=== PATIENT | male | born 1955 | race Caucasian/White ===

== ENCOUNTER 2023-12-11 07:44 | Outpatient (CLI) | payer MEDICARE, SELFPAY ==
--- NOTE | 2023-12-11 07:30 | RT.EKG_ITS ---
APPROVED REPORT Exam: Resting ECG Reason for Exam: afib Patient Location: O HR:133 bpm ECG Measurements Heart Rate 133 AXIS MD 88 P 36 QRSd 106 QRS 55 QT 336 T 164 QTc 500 Conclusion Sinus tachycardia...rate> 99 Repol abnrm suggests ischemia, lateral leads...ST dep, T neg, I aVL V5 V6 ST elevation, consider inferior injury...ST >0.08mV, II III aVF Baseline wander in lead(s) III,aVL
== END 2023-12-11 07:45 | disposition home or self-care (01) ==
LOC: DI.CARD 07:45
PROVIDERS: PCP Family Medicine; Visit Provider Student in an Organized Health Care Education/Training Program
DX: I25.10 Atherosclerotic heart disease of native coronary artery without angina pectoris (principal); I48.0 Paroxysmal atrial fibrillation
CPT/HCPCS: 93010

== ENCOUNTER → 2023-12-11 13:59 | Outpatient (BNVA) | payer MEDICARE, SELFPAY | PROVIDERS: PCP Family Medicine; Referring Provider Family Medicine; Visit Provider Student in an Organized Health Care Education/Training Program | DX: Z95.810 Presence of automatic (implantable) cardiac defibrillator (principal); I25.10 Atherosclerotic heart disease of native coronary artery without angina pectoris; I48.0 Paroxysmal atrial fibrillation | CPT/HCPCS: 93005; 93282 ==

== ENCOUNTER 2024-12-04 12:55 | Inpatient (IN) | payer MEDICARE, MEDICAID, SELFPAY ==
[2024-12-04] VITALS (32 sets, daily range): BP systolic 136–187; BP diastolic 69–141; PULSE 93–108; RESP 5–37; TEMP 37–37.2; O2SAT 67–99
--- NOTE | 2024-12-04 12:45 | RT.EKG_ITS ---
APPROVED REPORT Exam: Resting ECG Reason for Exam: [facility] Patient Location: E HR:98 bpm ECG Measurements Heart Rate 98 AXIS LA 169 P [id number] QRSd 110 QRS 67 QT 339 T 23 QTc 433 Conclusion Atrial-paced complexes...other complexes also detected Anterior infarct, old...Q >40mS, abnormal ST-T, V2-V5
--- NOTE | 2024-12-04 13:30 | DI.CT_ITS ---
Exam(s) CT HEAD WO EXAM: CT HEAD WO CLINICAL HISTORY: altered mentation. TECHNIQUE: Imaging Protocol: Axial computed tomography images with coronal and sagittal reformatted images were created and reviewed COMPARISON: CT CT CTA ABD/PELV W/AND/OR WO CON from 12/02/2024 FINDINGS: There are no skull fractures. There is no fluid in the visualized paranasal sinuses. There is no evidence of intracranial hemorrhage, mass effect, or shift of midline structures. There are no extra-axial fluid collections. The ventricles are not enlarged or shifted and there is no blood within the ventricular system nor within the basal cisterns. IMPRESSION: No acute intracranial findings on this noninfused CT scan of the brain. Called by myself to ER 12/04/2024 at 3:44 p.m. RADIATION DOSE DELIVERED: 898.3mGy.cm Total DLP DATA REPOSITORY: All CT scans at this facility are submitted to the National Radiology Data Registry (NRDR) Dose Index Registry (DIR) with the [employer] ([employer]). RADIATION OPTIMIZATION: All CT scans at this facility use at least one of these dose optimization techniques: automated exposure control; mA and/or kV adjustment per patient size (includes targeted exams where dose is matched to clinical indication); or iterative reconstruction.
[2024-12-04] MEDS: Albuterol/Ipratropium 3 ML UPD VIAL UPD ×2 (13:31→15:46)
[2024-12-04 13:32] LABS: BE (Venous) 6 mmol/L (-2-3); HCO3 (Venous) 33 mmol/L (23-28); O2 Sat (Venous) 47 %; TCO2 (Venous) 31 mmol/L (24-29); pH (Venous) 7.25 (7.31-7.41); pO2 (Venous) 30 mmHg
[2024-12-04 13:33] LABS: Abs Immature Grans 0.06 10^3/uL (0.0-0.06); Absolute Basophil Count 0.03 10^3/uL (0.0-0.2); Absolute Eosinophil Count 0.04 10^3/uL (0.0-0.7); Absolute Lymphocyte Count 0.75 10^3/uL (1.2-3.4); Absolute Monocyte Count 0.51 10^3/uL (0.1-0.8); Absolute Neutrophil Count 6.41 10^3/uL (1.2-6.7); Basophils % 0.4 %; Eosinophils % 0.5 %; HCT 45.3 % (40.0-50.0); HGB 13.4 g/dL (13.5-17.5); Immature Grans % 0.8 %; Lymphocytes % 9.6 %; MCH 28.7 pg (27.0-33.0); MCHC 29.6 % (32.0-36.0); MCV 97 fL (80-95); MPV 8.6 fL (8.0-11.0); Monocytes % 6.5 %; Neutrophils % 82.2 %; Platelet Count 196 10^3/uL (130-400); RBC 4.67 10^6/uL (4.36-5.78); RDW 15.9 % (11.8-14.1); RDW-SD 56.6 fL
[2024-12-04 13:38] LABS: pCO2 (Venous) 75 mmHg (41-51)
--- NOTE | 2024-12-04 13:46 | W.ED.GENAD ---
Discharge Plan Disposition Patient Disposition: Admit to [facility] Condition: Critical Discharge Details Clinical Impression: Acute respiratory failure with hypoxia and hypercarbia, Elevated troponin, Altered mental status Primary Care Provider: Jc Morales ED Provider: Sam Perez [place] Meds and New Rx's Prescriptions: No Action [id number]-[id number] 500-416.6-20 mg tablet 1 tab PO DAILY Patient Comments: 04/16/23 per pcp take 2 daily RH sildenafil 100 mg tablet 100 mg PO DAILY PRN Rx Instructions: administer 30 minutes to 4 hours before activity metformin 500 mg tablet 500 mg PO BID tamsulosin 0.4 mg capsule 0.8 mg PO QHS Ozempic 2 mg/dose (8 mg/3 mL) pen injector 2 mg subcut QWEEK amiodarone 200 mg tablet 200 mg PO DAILY apixaban 5 mg tablet 5 mg PO BID clopidogrel 75 mg tablet 75 mg PO DAILY empagliflozin 10 mg tablet 10 mg PO DAILY furosemide 40 mg tablet 40 mg PO DAILY pantoprazole 40 mg tablet,delayed release (DR/EC) 40 mg PO DAILY rosuvastatin 40 mg tablet 40 mg PO DAILY spironolactone 25 mg tablet 25 mg PO DAILY albuterol sulfate 90 mcg/actuation aerosol powdr breath activated 2 inh inhalation Q6H PRN sacubitril-valsartan [Entresto] 24-26 mg tablet 1 tab PO BID fluticasone propion-salmeterol 250-50 mcg/dose blister with device 1 inh inhalation BID gabapentin 100 mg capsule 100 mg PO DAILY Jardiance 10 mg tablet 10 mg PO DAILY loratadine 10 mg tablet 10 mg PO DAILY magnesium chloride 64 mg tablet extended release 64 mg PO DAILY metformin 500 mg tablet 500 mg PO DAILY nitroglycerin 0.4 mg tablet, sublingual 0.4 mg sublingual Q5M PRN Rx Instructions: do not exceed 3 doses per episode omeprazole 20 mg capsule,delayed release(DR/EC) 20 mg PO DAILY Ozempic 2 mg/dose (8 mg/3 mL) pen injector 2 mg subcut QWEEK Stiolto Respimat 2.5-2.5 mcg/actuation mist 2 puff inhalation DAILY trazodone 50 mg tablet 50 mg PO DAILY metoprolol succinate [Toprol XL] 100 mg tablet extended release 24 hr 200 mg PO DAILY HPI General Date/Time Provider Initiated Documentation: 12/04/24 13:11. Limitations to Documentation: no limitations. Information obtained by: patient and family. HPI Narrative: 69-year-old male with multimedical problems including history of COPD, diabetes, hypertension, coronary artery disease status post stents, CHF, A-fib, AAA, here at the prompting of his for altered mental status. Patient has had increased fatigue, intermittent hallucinations, and slurred speech over the past 1 week. She notes today he slept well into the morning which is completely atypical and was also experiencing hallucinations upon waking. Patient notes has not been drinking as much recently and has had a cough. He denies focal weakness but has generalized weakness. Related Data Home Medications ?Medication ?Instructions ?Recorded ?Confirmed glucosamine 500 wd-ojkmfogzj-skq 1 tab PO DAILY 04/16/23 12/04/24 no1 416.6 mg-C 20 kt-qqwj-kbpj tablet metformin 500 mg tablet 500 mg PO BID 04/16/23 12/04/24 semaglutide 2 mg/dose (8 mg/3 mL) 2 mg subcut QWEEK 04/16/23 12/04/24 subcutaneous pen injector (Ozempic) sildenafil 100 mg tablet 100 mg PO DAILY PRN 04/16/23 12/04/24 tamsulosin 0.4 mg capsule 0.8 mg PO QHS 04/16/23 12/04/24 amiodarone 200 mg tablet 200 mg PO DAILY 04/22/23 12/04/24 apixaban 5 mg tablet 5 mg PO BID 04/22/23 12/04/24 clopidogrel 75 mg tablet 75 mg PO DAILY 04/22/23 12/04/24 empagliflozin 10 mg tablet 10 mg PO DAILY 04/22/23 12/04/24 furosemide 40 mg tablet 40 mg PO DAILY 04/22/23 12/04/24 pantoprazole 40 mg tablet,delayed 40 mg PO DAILY 04/22/23 12/04/24 release rosuvastatin 40 mg tablet 40 mg PO DAILY 04/22/23 12/04/24 albuterol sulfate 90 mcg/actuation 2 inh inhalation Q6H PRN 07/06/24 12/04/24 breath activated powder inhaler empagliflozin 10 mg tablet 10 mg PO DAILY 07/06/24 12/04/24 (Jardiance) fluticasone 250 mcg-salmeterol 50 1 inh inhalation BID 07/06/24 12/04/24 mcg/dose blistr powdr for inhalation gabapentin 100 mg capsule 100 mg PO DAILY 07/06/24 12/04/24 loratadine 10 mg tablet 10 mg PO DAILY 07/06/24 12/04/24 magnesium chloride 64 mg 64 mg PO DAILY 07/06/24 12/04/24 tablet,extended release Held on 12/04/24. Instructions: not on med list metformin 500 mg tablet 500 mg PO DAILY 07/06/24 12/04/24 Held on 12/04/24. Instructions: Duplicate nitroglycerin 0.4 mg sublingual 0.4 mg sublingual Q5M PRN 07/06/24 12/04/24 tablet omeprazole 20 mg capsule,delayed 20 mg PO DAILY 07/06/24 12/04/24 release sacubitril 24 mg-valsartan 26 mg 1 tab PO BID 07/06/24 12/04/24 tablet (Entresto) semaglutide 2 mg/dose (8 mg/3 mL) 2 mg subcut QWEEK 07/06/24 12/04/24 subcutaneous pen injector (Ozempic) Held on 12/04/24. Instructions: Duplicate spironolactone 25 mg tablet 25 mg PO DAILY 07/06/24 12/04/24 tiotropium 2.5 mcg-olodaterol 2.5 2 puff inhalation DAILY 07/06/24 12/04/24 mcg/actuation mist for inhalation (Stiolto Respimat) metoprolol succinate 100 mg 200 mg PO DAILY 12/04/24 12/04/24 tablet,extended release 24 hr (Toprol XL) trazodone 50 mg tablet 50 mg PO DAILY 12/04/24 12/04/24 Allergies Allergy/AdvReac Type Severity Reaction Status Date / Time Penicillins AdvReac Skin Rash Verified 12/04/24 13:19 General Stated Complaint: GenMedical ROD: 3 Review of Systems All systems reviewed & are unremarkable except as noted in HPI and below Constitutional Constitutional: Reports lethargy and Reports weakness Cardiovascular Cardiovascular: Denies chest pain Neurologic Neurologic: Reports weakness Exam Const General: cooperative and no acute distress Nutritional Appearance: obese Orientation: alert and awake [facility] Head: normocephalic and atraumatic Mouth: moist mucous membranes Eyes Conjunctivae: normal conjunctivae Sclera: normal sclerae Neck Neck: trachea midline and supple Resp Auscultation: diminished lung sounds bilaterally, no rales, no rhonchi and wheezes expiratory wheezes (trace) Cardio Rate: regular rate and not tachycardic Rhythm: regular rhythm GI Palpation: soft, not firm, no guarding, no masses, not rigid and nontender Skin General skin exam: no rashes or lesions noted Neuro General: patient alert, patient awake, patient oriented x3 and tone normal Cognition: normal cognition Speech: abnormal speech slurred Motor: strength 5/5 throughout Sensory Exam: no sensory deficits noted Extrem General: no edema Psych Appearance: grossly normal Mental Status: mental status grossly normal Speech and Movement: speech and movement normal Course Vital Signs Vital signs: Vital Signs Pulse 97 H 12/04/24 12:59 Respiratory Rate 24 12/04/24 12:59 Blood Pressure 152/89 H 12/04/24 12:59 Pulse Oximetry 80 L 12/04/24 12:59 Pulse 97 H 12/04/24 13:33 Respiratory Rate 25 H 12/04/24 13:33 Blood Pressure 152/89 H 12/04/24 12:59 Blood Pressure Position Sitting 12/04/24 12:59 Pulse Oximetry 91 L 12/04/24 13:34 Oxygen Delivery Method Nasal Cannula 12/04/24 13:34 Oxygen Flow Rate 1 12/04/24 13:34 Pain Level 0 12/04/24 12:59 Lab/Test Results Lab/Test Results: Laboratory Tests Range/Units 12/04/24 13:18 WBC (4.4-10.8) 10^3/uL 7.80 RBC (4.36-5.78) 10^6/uL 4.67 Hgb (13.5-17.5) g/dL 13.4 L Hct (40.0-50.0) % 45.3 MCV (80-95) fL 97 H MCH (27.0-33.0) pg 28.7 MCHC (32.0-36.0) % 29.6 L RDW (11.8-14.1) % 15.9 H Plt Count (130-400) 10^3/uL 196 MPV (8.0-11.0) fL 8.6 Immature Gran % % 0.8 Neutrophils % % 82.2 Lymphocytes % % 9.6 Monocytes % % 6.5 Eosinophils % % 0.5 Basophils % % 0.4 Nucleated RBC % (0.0-0.3) % 0.0 Absolute Neutrophils (1.2-6.7) 10^3/uL 6.41 Absolute Lymphocytes (1.2-3.4) 10^3/uL 0.75 L Absolute Monocytes (0.1-0.8) 10^3/uL 0.51 Absolute Eosinophils (0.0-0.7) 10^3/uL 0.04 Absolute Basophils (0.0-0.2) 10^3/uL 0.03 VBG pH (7.31-7.41) 7.25 L VBG pCO2 (41-51) mmHg 75 H* VBG pO2 mmHg 30 VBG HCO3 (23-28) mmol/L 33 H VBG Total CO2 (24-29) mmol/L 31 H VBG O2 Saturation % 47 VBG Base Excess (-2-3) mmol/L 6 H Medical Decision Making 1350 --69-year-old male with multiple medical problems including history of COPD, CHF, diabetes, hypertension,'s coronary artery disease status post -, here with altered mental status, slurred speech, generalized weakness and fatigue over the past 1 week. Patient found to be severely hypoxic with a pulse ox of 60% on room air. Supplemental oxygen applied and now saturating low 90s. He has diminished breath sounds bilaterally with some wheeze. Suspect hypercarbic hypoxemic respiratory failure leading to delirium. Concern for acute COPD exacerbation. Consider pneumonia. Plan to initiate treatment with DuoNebs and Solu-Medrol. Consider less likely central neurologic process I will obtain CT of the head. VBG reviewed and patient is acidotic with pH of 7.25 with a pCO2 of 75. Respiratory therapy has been consulted with plan to initiate BiPAP. Patient is high risk for alcohol withdrawal and should be monitored closely. I am concerned about Warnicke's encephalopathy and will give thiamine 100 mg IV. 1440 --additional labs reviewed: Troponin elevated at 237. BNP elevated at 2600. Chest x-ray was reviewed and interpreted by radiology: No acute pulmonary findings. 1455 --I obtained and reviewed interpretation of outside hospital CT of the abdomen pelvis 12/02/2024 as interpreted by radiologist Dr. Garcia:1. Mild ectasia of the infrarenal aorta measuring 2.7 cm in maximal diameter. 2. Enlarged prostate. 3. CT angiography of the abdomen and pelvis is otherwise within normal limits. Patient reassessed and tolerating BiPAP well. Plan to repeat VBG. Plan to admit. 1523 --repeat VBG continues to show hypercarbia. Plan to continue BiPAP which patient is tolerating well. CT of the head pending. I spoke with Dr. Akhtar, discussed ED presentation course, he will admit the patient. 1544 --CT head interpreted by radiology: No acute intracranial findings on this noninfused CT scan of the brain. Lab Data Lab results reviewed: Yes I reviewed the patient's lab results. Labs: Laboratory Tests Range/Units 12/04/24 13:18 WBC (4.4-10.8) 10^3/uL 7.80 RBC (4.36-5.78) 10^6/uL 4.67 Hgb (13.5-17.5) g/dL 13.4 L Hct (40.0-50.0) % 45.3 MCV (80-95) fL 97 H MCH (27.0-33.0) pg 28.7 MCHC (32.0-36.0) % 29.6 L RDW (11.8-14.1) % 15.9 H Plt Count (130-400) 10^3/uL 196 MPV (8.0-11.0) fL 8.6 Immature Gran % % 0.8 Neutrophils % % 82.2 Lymphocytes % % 9.6 Monocytes % % 6.5 Eosinophils % % 0.5 Basophils % % 0.4 Nucleated RBC % (0.0-0.3) % 0.0 Absolute Neutrophils (1.2-6.7) 10^3/uL 6.41 Absolute Lymphocytes (1.2-3.4) 10^3/uL 0.75 L Absolute Monocytes (0.1-0.8) 10^3/uL 0.51 Absolute Eosinophils (0.0-0.7) 10^3/uL 0.04 Absolute Basophils (0.0-0.2) 10^3/uL 0.03 VBG pH (7.31-7.41) 7.25 L VBG pCO2 (41-51) mmHg 75 H* VBG pO2 mmHg 30 VBG HCO3 (23-28) mmol/L 33 H VBG Total CO2 (24-29) mmol/L 31 H VBG O2 Saturation % 47 VBG Base Excess (-2-3) mmol/L 6 H Sodium (136-145) mmol/L 141 Potassium (3.5-5.1) mmol/L 4.6 Chloride (98-107) mmol/L 101 Carbon Dioxide (21.0-32.0) mmol/L 36.4 H Anion Gap (3-11) mmol/L 3.6 BUN (7-18) mg/dL 19 H Creatinine (0.70-1.30) mg/dL 1.0 Est GFR (CKD-EPI 2020) (mL/min/1.73m2) 80.97 Glucose (74-106) mg/dL 139 H Calcium (8.5-10.1) mg/dL 8.9 Magnesium (1.8-2.4) mg/dL 2.1 Total Bilirubin (0.2-1.0) mg/dL 0.3 AST (15-37) U/L 40 H ALT (16-63) U/L 48 Alkaline Phosphatase (46-116) U/L 111 Troponin I (<or=76) ng/L 237 H* NT-Pro-B Natriuret Pep (<300) pg/mL 2614 H Total Protein (6.4-8.2) g/dL 7.3 Albumin (3.4-5.0) g/dL 3.1 L Critical Care Time Critical Care Time Critical Care Time: Yes Total Critical Care Time: 45 Attestation: Due to a high probability of clinically significant, life threatening deterioration, the patient required my highest level of preparedness to intervene emergently and I personally spent this critical care time directly and personally managing the patient. This critical care time included obtaining a history; examining the patient; pulse oximetry; ordering and review of studies; arranging urgent treatment with development of a management plan; evaluation of patient's response to treatment; frequent reassessment; and, discussions with other providers. This critical care time was performed to assess and manage the high probability of imminent, life-threatening deterioration that could result in multi-organ failure. It was exclusive of separately billable procedures and treating other patients and teaching time. Please see MDM section and the rest of the note for further information on patient assessment and treatment. PFSH All Active Problems (Updated 12/04/24 @ 15:27 by Sam Perez MD) Altered mental status (Acute) Elevated troponin (Acute) Acute respiratory failure with hypoxia and hypercarbia (Acute) Elevated troponin (Acute) Acute exacerbation of chronic obstructive pulmonary disease (COPD) (Acute) Acute respiratory failure with hypoxia and hypercapnia (Acute) Restless leg syndrome (Acute) Presence of cardiac defibrillator (Acute) Overweight (Acute) NSTEMI (non-ST elevated myocardial infarction) (Acute) Insomnia (Acute) Hypertensive disorder (Chronic) DM type 2 (diabetes mellitus, type 2) (Acute) COPD with chronic bronchitis (Acute) Chronic GERD (Acute) CHF with cardiomyopathy (Acute) Bilateral cataracts (Acute) Atrial flutter (Acute) Atherosclerotic coronary vascular disease (Acute) Paroxysmal A-fib (Acute) ICD (implantable cardioverter-defibrillator) in place (Acute) Medtronic cobalt placed at [facility] 04/15/23 (HFpEF) heart failure with preserved ejection fraction (Acute) 04/15 EF 17% per [facility] RH ASCVD (arteriosclerotic cardiovascular disease) (Acute) Known LAD stenosis s/p PCIx2 to TRAP SETTER RCA per [facility], PCI to LAD RH Acid reflux (Chronic) COPD (chronic obstructive pulmonary disease) (Chronic) Hyperlipidemia (Acute) Diabetes mellitus (Chronic) HTN (hypertension) with goal to be determined (Acute) Medical History BPH (benign prostatic hyperplasia) Social History Smoking/Tobacco Use Status: Former Tobacco Use Smoking risk assessment performed?: Yes
--- NOTE | 2024-12-04 13:55 | DI.RAD_ITS ---
Exam(s) XR PORTABLE CHEST AP EXAM: XR PORTABLE CHEST AP CLINICAL HISTORY: hypoxia cough. TECHNIQUE: 2D digital imaging was performed. COMPARISON: CT CT CTA ABD/PELV W/AND/OR WO CON from 12/02/2024 FINDINGS: Single AP portable view. There is a bipolar left subclavian pacemaker wires. Heart size is upper normal. The mediastinum is not widened. There are mild increased markings in the left lower lobe retrocardiac region. There is also mild pulmonary venous hypertension pattern but no jared airspace pulmonary edema. No obvious pleural effusions. IMPRESSION: As above. Recommend nonportable PA and lateral views when clinically possible, or alternatively CT scan. DATA REPOSITORY: RADIATION DOSE DELIVERED:
[2024-12-04 13:58] LABS: ALT 48 U/L (16-63); AST 40 U/L (15-37); Albumin 3.1 g/dL (3.4-5.0); Alkaline Phosphatase 111 U/L (46-116); Anion Gap 3.6 mmol/L (3-11); BUN 19 mg/dL (7-18); Bilirubin, Total 0.3 mg/dL (0.2-1.0); CO2 36.4 mmol/L (21.0-32.0); Calcium 8.9 mg/dL (8.5-10.1); Chloride 101 mmol/L (98-107); Estimated GFR 80.97 (mL/min/1.73m2); Glucose 139 mg/dL (74-106); Magnesium 2.1 mg/dL (1.8-2.4); NT-proBNP 2614 pg/mL (<300); Potassium 4.6 mmol/L (3.5-5.1); Sodium 141 mmol/L (136-145); Total Protein 7.3 g/dL (6.4-8.2)
[2024-12-04 14:01] LABS: Troponin I 237 ng/L (<or=76)
[2024-12-04] MEDS: methylPREDNISolone SUCC 125 MG VIAL IVP (14:49)
[2024-12-04] MEDS: THIAMINE 100 MG in Normal Saline 100 ML 200 MG IVPB (15:00)
[2024-12-04 15:06] LABS: BE (Venous) 8 mmol/L (-2-3); HCO3 (Venous) 35 mmol/L (23-28); O2 Sat (Venous) 46 %; TCO2 (Venous) 33 mmol/L (24-29); pH (Venous) 7.27 (7.31-7.41); pO2 (Venous) 29 mmHg
[2024-12-04 15:09] LABS: pCO2 (Venous) 76 mmHg (41-51)
--- NOTE | 2024-12-04 15:21 | W.PM.HP.N ---
Date of service: 12/04/24 Time of Service: 15:21 Assessment and Plan Assessment and plan (1) Acute respiratory failure with hypoxia and hypercapnia: Status: Acute Assessment and plan: - Likely secondary to COPD exacerbation - Started on methylprednisolone and nebulizers in the emergency department - Will continue 40 mg p.o. prednisone daily, scheduled nebulizers and as needed albuterol - Oxygen saturation down to 80% but improved with 1 L nasal cannula - However, due to hypercapnia seen on VBG with a CO2 of 72 patient was placed on BiPAP therapy with improvement of work of breathing but persistent hypercapnia - Will continue BiPAP as tolerated and repeat check VBG in a.m. (2) Acute exacerbation of chronic obstructive pulmonary disease (COPD): Status: Acute Assessment and plan: - Likely resulting factor in hypoxic and hypercapnic respiratory failure as noted above - Nebulizers and steroids as noted above (3) Metabolic encephalopathy: Status: Acute Assessment and plan: - Secondary to hypercapnia as noted above (4) DM type 2 (diabetes mellitus, type 2): Status: Acute Assessment and plan: - Hold home empagliflozin, semaglutide and metformin - Sliding scale insulin, heart healthy carb consistent diet (5) Elevated troponin: Status: Acute Assessment and plan: - Troponin noted to be about 200 though EKG was unchanged and patient without chest pain - Likely secondary to demand ischemia - Will follow-up a.m. troponin (6) CHF with cardiomyopathy: Status: Acute Assessment and plan: - Significant heart failure with last EF known to be 17% in March 2023 that resulted in implantable cardio defibrillator - Will order echocardiogram but will not be able to obtain until 12/07/2024 - Continue home medication regimen including 40 mg daily Lasix, 20 mg metoprolol XL, as needed sublingual nitro, Entresto, spironolactone (7) Paroxysmal A-fib: Status: Acute Assessment and plan: - Continue home Toprol-XL, amiodarone and Eliquis (8) ICD (implantable cardioverter-defibrillator) in place: Status: Acute Assessment and plan: - Secondary to significant heart failure with reduced ejection fraction as noted above (9) ASCVD (arteriosclerotic cardiovascular disease): Status: Acute Assessment and plan: - History of significant coronary artery disease with last stent placement and March 2023 (10) Hyperlipidemia: Status: Acute Assessment and plan: - Continue home statin (11) HTN (hypertension) with goal to be determined: Status: Acute Assessment and plan: - Continue antihypertensives of part of CHF regimen as noted above History of Present Illness History of Present Illness Chief Complaint: AMS Narrative: 6-year-old gentleman with a past medical history of COPD, IDDM, hypertension, coronary artery disease status post stent placement, HFrEF last known EF 17% March 2023 with ICD placement, A-fib on Eliquis and AAA who presented the emergency department concerns for altered mental status by his . According the patient's patient has been increasingly more fatigued with intermittent hallucinations and slurred speech over the last week. However, what prompted patient's to bring him to the emergency department was that he slept until 11 AM today which is not normal for him. She also states that he has had decreased p.o. intake and has had increased cough, but denies any fevers. In the emergency department the patient was noted as being significantly confused with tachycardia with heart rate in the high 90s, elevated respiratory rate in the 30s, and initial pulse ox of 80% improved with 1 L nasal cannula. CBC and CMP were unremarkable but initial troponin was elevated 237 though no chest pain was reported or EKG changes thought to be secondary to respiratory failure. Additionally, patient had VBG and was noted to have pH of 7.25, with a pCO2 of 75 and a bicarb of 33, which fits with reports of worsening confusion over the last week. Patient received IV methylprednisolone and nebulizer treatments. At which time patient was placed on BiPAP and did experience significant improvement in his work of breathing. At which time emergency room physician paged hospitalist for admission for patient with acute hypoxic and hypercapnic respiratory failur likely secondary to COPD exacerbation. Review of Systems All systems reviewed & are unremarkable except as noted in HPI and below PFSH All Active Problems (Updated 12/04/24 @ 15:49 by Sina Akhtar MD) Metabolic encephalopathy (Acute) Altered mental status (Acute) Elevated troponin (Acute) Acute respiratory failure with hypoxia and hypercarbia (Acute) Elevated troponin (Acute) Acute exacerbation of chronic obstructive pulmonary disease (COPD) (Acute) Acute respiratory failure with hypoxia and hypercapnia (Acute) Restless leg syndrome (Acute) Presence of cardiac defibrillator (Acute) Overweight (Acute) NSTEMI (non-ST elevated myocardial infarction) (Acute) Insomnia (Acute) Hypertensive disorder (Chronic) DM type 2 (diabetes mellitus, type 2) (Acute) COPD with chronic bronchitis (Acute) Chronic GERD (Acute) CHF with cardiomyopathy (Acute) Bilateral cataracts (Acute) Atrial flutter (Acute) Atherosclerotic coronary vascular disease (Acute) Paroxysmal A-fib (Acute) ICD (implantable cardioverter-defibrillator) in place (Acute) Medtronic cobalt placed at [facility] 04/15/23 (HFpEF) heart failure with preserved ejection fraction (Acute) 04/15 EF 17% per [facility] RH ASCVD (arteriosclerotic cardiovascular disease) (Acute) Known LAD stenosis s/p PCIx2 to MANAGER CAR RCA per [facility], PCI to LAD RH Acid reflux (Chronic) COPD (chronic obstructive pulmonary disease) (Chronic) Hyperlipidemia (Acute) Diabetes mellitus (Chronic) HTN (hypertension) with goal to be determined (Acute) Medical History BPH (benign prostatic hyperplasia) Social History Smoking/Tobacco Use Status: Former Tobacco Use Smoking risk assessment performed?: Yes Housing: homeless Meds Allergies and Home Medications Allergies Allergy/AdvReac Type Severity Reaction Status Date / Time Penicillins AdvReac Skin Rash Verified 12/04/24 13:19 Home Medications ?Medication ?Instructions ?Recorded ?Confirmed ?Type glucosamine 500 ob-rraeviyha-alj 1 tab PO DAILY 04/16/23 12/04/24 History no1 416.6 mg-C 20 di-mnev-ffvt tablet metformin 500 mg tablet 500 mg PO BID 04/16/23 12/04/24 History semaglutide 2 mg/dose (8 mg/3 mL) 2 mg subcut QWEEK 04/16/23 12/04/24 History subcutaneous pen injector (Ozempic) sildenafil 100 mg tablet 100 mg PO DAILY PRN 04/16/23 12/04/24 History tamsulosin 0.4 mg capsule 0.8 mg PO QHS 04/16/23 12/04/24 History amiodarone 200 mg tablet 200 mg PO DAILY 04/22/23 12/04/24 History apixaban 5 mg tablet 5 mg PO BID 04/22/23 12/04/24 History clopidogrel 75 mg tablet 75 mg PO DAILY 04/22/23 12/04/24 History empagliflozin 10 mg tablet 10 mg PO DAILY 04/22/23 12/04/24 History furosemide 40 mg tablet 40 mg PO DAILY 04/22/23 12/04/24 History pantoprazole 40 mg tablet,delayed 40 mg PO DAILY 04/22/23 12/04/24 History release rosuvastatin 40 mg tablet 40 mg PO DAILY 04/22/23 12/04/24 History albuterol sulfate 90 mcg/actuation 2 inh inhalation Q6H PRN 07/06/24 12/04/24 History breath activated powder inhaler empagliflozin 10 mg tablet 10 mg PO DAILY 07/06/24 12/04/24 History (Jardiance) fluticasone 250 mcg-salmeterol 50 1 inh inhalation BID 07/06/24 12/04/24 History mcg/dose blistr powdr for inhalation gabapentin 100 mg capsule 100 mg PO DAILY 07/06/24 12/04/24 History loratadine 10 mg tablet 10 mg PO DAILY 07/06/24 12/04/24 History magnesium chloride 64 mg 64 mg PO DAILY 07/06/24 12/04/24 History tablet,extended release Held on 12/04/24. Instructions: not on med list metformin 500 mg tablet 500 mg PO DAILY 07/06/24 12/04/24 History Held on 12/04/24. Instructions: Duplicate nitroglycerin 0.4 mg sublingual 0.4 mg sublingual Q5M PRN 07/06/24 12/04/24 History tablet omeprazole 20 mg capsule,delayed 20 mg PO DAILY 07/06/24 12/04/24 History release sacubitril 24 mg-valsartan 26 mg 1 tab PO BID 07/06/24 12/04/24 History tablet (Entresto) semaglutide 2 mg/dose (8 mg/3 mL) 2 mg subcut QWEEK 07/06/24 12/04/24 History subcutaneous pen injector (Ozempic) Held on 12/04/24. Instructions: Duplicate spironolactone 25 mg tablet 25 mg PO DAILY 07/06/24 12/04/24 History tiotropium 2.5 mcg-olodaterol 2.5 2 puff inhalation DAILY 07/06/24 12/04/24 History mcg/actuation mist for inhalation (Stiolto Respimat) metoprolol succinate 100 mg 200 mg PO DAILY 12/04/24 12/04/24 History tablet,extended release 24 hr (Toprol XL) trazodone 50 mg tablet 50 mg PO DAILY 12/04/24 12/04/24 History Exam Narrative Exam Narrative: fatigued appearing older gentleman laying in bed in no acute distress, awake, alert, oriented to person, place and situation, BiPAP mask in place, heart RRR, lungs with expiratory wheezing that can be heard over BiPAP sounds, abdomen obese, soft, non-tender, non-distended Results Labs 12/04/24 13:18 12/04/24 13:18 Labs: Laboratory Results - last 24 hr 12/04/24 12/04/24 13:18 14:55 WBC 7.80 RBC 4.67 Hgb 13.4 L Hct 45.3 MCV 97 H MCH 28.7 MCHC 29.6 L RDW 15.9 H Plt Count 196 MPV 8.6 Immature Gran % 0.8 Neutrophils % 82.2 Lymphocytes % 9.6 Monocytes % 6.5 Eosinophils % 0.5 Basophils % 0.4 Nucleated RBC % 0.0 Absolute Neutrophils 6.41 Absolute Lymphocytes 0.75 L Absolute Monocytes 0.51 Absolute Eosinophils 0.04 Absolute Basophils 0.03 VBG pH 7.25 L 7.27 L VBG pCO2 75 H* 76 H* VBG pO2 30 29 VBG HCO3 33 H 35 H VBG Total CO2 31 H 33 H VBG O2 Saturation 47 46 VBG Base Excess 6 H 8 H Sodium 141 Potassium 4.6 Chloride 101 Carbon Dioxide 36.4 H Anion Gap 3.6 BUN 19 H Creatinine 1.0 Est GFR (CKD-EPI 2020) 80.97 Glucose 139 H Calcium 8.9 Magnesium 2.1 Total Bilirubin 0.3 AST 40 H ALT 48 Alkaline Phosphatase 111 Troponin I 237 H* NT-Pro-B Natriuret Pep 2614 H Total Protein 7.3 Albumin 3.1 L Last Vital Signs Pulse 95 H 12/04/24 15:12 Resp 24 12/04/24 15:12 BP 152/89 H 12/04/24 12:59 Pulse Ox 94 12/04/24 15:12 Time Spent Time spent with Patient: >75 minutes Time was spent: preparing to see the patient(eg.review tests), obtaining and/or reviewing separately otained hiistory, ordering medications,tests, procedures, referring, communicating with other health medicare nurse, indepentently interpreting results, counseling the patient and care coordination
[2024-12-04 15:30] LABS: Troponin I 297 ng/L (<or=76)
--- NOTE | 2024-12-04 15:54 | W.PC.ACHO ---
Registration Status: REG ER Primary Language: Preferred Language: ED Information & Data Chief Complaint GenMedical 12/04/24 13:53 Triage Note Pt reports slurred 12/04/24 12:59 speech over the past week. LKW a couple weeks ago. Pt A/OX4, complains of SOB. states he is forgetting things and having hallucinations. reports this is more when he is sleeping. Pt denies CP. Past 4 ppd smoker for 40 yrs. Medical / Surgical History (Last Reviewed 12/04/24 @ 13:48 by Sam Perez MD) BPH (benign prostatic hyperplasia) Most Recent Vital Signs Pulse 95 H 12/04/24 15:12 Respiratory Rate 20 12/04/24 15:46 Respiratory Effort Short of Breath 12/04/24 15:44 Respiratory Depth Normal 12/04/24 15:44 Respiratory Pattern Normal 12/04/24 15:44 Blood Pressure 152/89 H 12/04/24 12:59 Blood Pressure Position Sitting 12/04/24 12:59 Pulse Oximetry 94 12/04/24 15:12 Oxygen Delivery Method Nasal Cannula 12/04/24 13:34 Oxygen Flow Rate 1 12/04/24 13:34 Fraction of Inspired Oxygen (FIO2) 28 12/04/24 15:12 Pain Level 0 12/04/24 12:59 Allergies Penicillins Adverse Reaction (Verified 12/04/24 13:19) Skin Rash Diagnostics 12/04/24 12/04/24 12/04/24 Range/Units 16:25 14:55 13:18 WBC 7.80 (4.4-10.8) 10^3/uL RBC 4.67 (4.36-5.78) 10^6/uL Hgb 13.4 L (13.5-17.5) g/dL Hct 45.3 (40.0-50.0) % MCV 97 H (80-95) fL MCH 28.7 (27.0-33.0) pg MCHC 29.6 L (32.0-36.0) % RDW 15.9 H (11.8-14.1) % Plt Count 196 (130-400) 10^3/uL MPV 8.6 (8.0-11.0) fL Immature Gran % 0.8 % Neutrophils % 82.2 % Lymphocytes % 9.6 % Monocytes % 6.5 % Eosinophils % 0.5 % Basophils % 0.4 % Nucleated RBC % 0.0 (0.0-0.3) % Absolute Neutrophils 6.41 (1.2-6.7) 10^3/uL Absolute Lymphocytes 0.75 L (1.2-3.4) 10^3/uL Absolute Monocytes 0.51 (0.1-0.8) 10^3/uL Absolute Eosinophils 0.04 (0.0-0.7) 10^3/uL Absolute Basophils 0.03 (0.0-0.2) 10^3/uL VBG pH 7.27 L 7.25 L (7.31-7.41) VBG pCO2 76 H* 75 H* (41-51) mmHg VBG pO2 29 30 mmHg VBG HCO3 35 H 33 H (23-28) mmol/L VBG Total CO2 33 H 31 H (24-29) mmol/L VBG O2 Saturation 46 47 % VBG Base Excess 8 H 6 H (-2-3) mmol/L Sodium 141 (136-145) mmol/L Potassium 4.6 (3.5-5.1) mmol/L Chloride 101 (98-107) mmol/L Carbon Dioxide 36.4 H (21.0-32.0) mmol/L Anion Gap 3.6 (3-11) mmol/L BUN 19 H (7-18) mg/dL Creatinine 1.0 (0.70-1.30) mg/dL Est GFR (CKD-EPI 2020) 80.97 (mL/min/1.73m2) Glucose 139 H (74-106) mg/dL Calcium 8.9 (8.5-10.1) mg/dL Magnesium 2.1 (1.8-2.4) mg/dL Total Bilirubin 0.3 (0.2-1.0) mg/dL AST 40 H (15-37) U/L ALT 48 (16-63) U/L Alkaline Phosphatase 111 (46-116) U/L Troponin I Pending 297 H* 237 H* (<or=76) ng/L NT-Pro-B Natriuret Pep 2614 H (<300) pg/mL Total Protein 7.3 (6.4-8.2) g/dL Albumin 3.1 L (3.4-5.0) g/dL Intake and Output - 24 Hour Total 12/04/24 12:55 thru 12/04/24 12:59 Weight 113.398 kg Falls Risk Assessment History of Falls No History 12/04/24 15:44 Fall Total Score 0 12/04/24 15:44 Level of Risk Standard/Low Risk 12/04/24 15:44 Problems (Last Reviewed 12/04/24 @ 13:48 by Sam Perez MD) Elevated troponin (Acute) Acute exacerbation of chronic obstructive pulmonary disease (COPD) (Acute) Acute respiratory failure with hypoxia and hypercapnia (Acute) DM type 2 (diabetes mellitus, type 2) (Acute) CHF with cardiomyopathy (Acute) Paroxysmal A-fib (Acute) ICD (implantable cardioverter-defibrillator) in place (Acute) (HFpEF) heart failure with preserved ejection fraction (Acute) ASCVD (arteriosclerotic cardiovascular disease) (Acute) Hyperlipidemia (Acute) HTN (hypertension) with goal to be determined (Acute) v v v v v v v v v Sending and/or Receiving Nurses: Please use comment section below to note any information pertinent to the patient hand-off not included above. Information / Comments: Complaints of hallucinations at night. Chief Complaint SOB. Tolerating BiPap well. Recent Dx of dementia, but currently answering questions appropriate, cooperative, conversant. Up ad herlinda at home. No void since arrival. has gone home but knows he is being admitted. Report received from: Amber. Dwain RN
[2024-12-04 16:22] LABS: BE (Venous) 7 mmol/L (-2-3); HCO3 (Venous) 34 mmol/L (23-28); O2 Sat (Venous) 42 %; TCO2 (Venous) 32 mmol/L (24-29); pH (Venous) 7.28 (7.31-7.41); pO2 (Venous) 26 mmHg
[2024-12-04 16:24] LABS: pCO2 (Venous) 72 mmHg (41-51)
[2024-12-04 16:43] LABS: Troponin I 364 ng/L (<or=76)
[2024-12-04] MEDS: Apixaban 5 MG TAB PO (20:09)
[2024-12-04] MEDS: Tamsulosin 0.4 MG CAPCR 0.8 MG PO (20:09)
[2024-12-04] MEDS: Sacubitril/Valsartan 24 mg/26 mg TAB 1 EACH PO (20:10)
[2024-12-04] MEDS: traZODone 50 MG TAB PO (20:53)
[2024-12-04] MEDS: Insulin Aspart 300 UNITS/3 ML PEN SC (22:19)
[2024-12-04] MEDS: LORazepam 20 MG/10 ML VIAL IVP (23:39)
[2024-12-05] VITALS (37 sets, daily range): BP systolic 95–176; BP diastolic 48–140; PULSE 79–120; RESP 3–31; TEMP 36.7–36.8; O2SAT 84–97
[2024-12-05] MEDS: OLANZapine 10 MG VIAL 6.5 MG IM (05:19)
[2024-12-05 05:21] LABS: BE (Venous) 5 mmol/L (-2-3); HCO3 (Venous) 32 mmol/L (23-28); HCT 44.8 % (40.0-50.0); HGB 13.1 g/dL (13.5-17.5); MCH 28.4 pg (27.0-33.0); MCHC 29.2 % (32.0-36.0); MCV 97 fL (80-95); MPV 8.9 fL (8.0-11.0); O2 Sat (Venous) 90 %; Platelet Count 153 10^3/uL (130-400); RBC 4.62 10^6/uL (4.36-5.78); RDW 15.7 % (11.8-14.1); TCO2 (Venous) 30 mmol/L (24-29); pH (Venous) 7.25 (7.31-7.41); pO2 (Venous) 63 mmHg
[2024-12-05 05:23] LABS: pCO2 (Venous) 74 mmHg (41-51)
[2024-12-05 05:39] LABS: Anion Gap 4.7 mmol/L (3-11); BUN 19 mg/dL (7-18); CO2 34.3 mmol/L (21.0-32.0); CREATININE 0.9 mg/dL (0.70-1.30); Calcium 8.6 mg/dL (8.5-10.1); Chloride 102 mmol/L (98-107); Estimated GFR 91.88 (mL/min/1.73m2); Glucose 170 mg/dL (74-106); Potassium 5.5 mmol/L (3.5-5.1); Sodium 141 mmol/L (136-145)
[2024-12-05 06:15] LABS: BE (Venous) 5 mmol/L (-2-3); HCO3 (Venous) 31 mmol/L (23-28); O2 Sat (Venous) 86 %; TCO2 (Venous) 29 mmol/L (24-29); pO2 (Venous) 52 mmHg
[2024-12-05 06:19] LABS: pCO2 (Venous) 63 mmHg (41-51)
--- NOTE | 2024-12-05 08:30 | INITIAL_ITS ---
Date of service: 12/05/24 Time of Service: 08:30 Care Management Initial Assmt Initial Assessment Reason for Hospitalization: Acute hypoxic and hypercapnic respiratory failure Functional Status/Living Situation Patient Presentation: Jonny was lying in bed and sleeping, when CM arrived. He presented to the ED, accompanied by his for altered mental status. She reports that he has in crease fatigue, hallucinations, and slurred speech, over the past week. Per RN, he was still confused late last night, he has been sleeping since. CM called Trudy, who is on the HIPAA, to obtain information for this assessment. 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 At baseline, she states, Jonny is independent, including driving and on RA, he is currently on 1L O2 NC; Per Trudy, he is a former tobacco users, of 40 years. Jonny has a cane and walkers in the home, but he does not use them. Per Trudy, he become restless when he is sleeping and begins to take imaginary things apart, and put them back together. She also states, he has an aneurysm in his stomach, which his PCP reportedly did imaging on during a recent visit. At this time, Trudy feels they are well supported in their home. Hatch did request assistance accessing the patient portal, CM offered Trudy the [facility] portal page and contacted medical records. CM will continue to follow. Town of Residence: [place] Resides with: Spouse (Trudy) Significant Other/Family: Local Natural Supports: Kings's son, grandaughter and grandson. Jonny has a daughter - they are not close, at this time. 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 Advance Directives Advance Directives: Do you have an Advance Directive: N , 11:34 AD On File at [facility]: N 12/04/24, 15:26 Date Asked 12/05/24 Today, 07:57 AD Date Reviewed COLST On File at [facility] No 12/04/24, 15:26 COLST Date Scanned Code Status Resuscitation Status Full Code Portal Pt does not currently have a portal and education provided: Yes Insurance Coverage/Financial Issues Insurance: BC/BS [place] [facility] Advantage - [id number] Care Team Visit Care Team Role Provider Type Jc Morales DO Primary Care Provider NON-[facility] STAFF PHYSICIAN Sam Perez MD Emergency Provider [facility] STAFF PHYSICIAN Sina Akhtar MD Admit Provider [facility] STAFF PHYSICIAN Attending Provider Discharge Potential Discharge Needs: PCP F/U Appt Anticipated Barriers to Discharge: Medical Status Patient/Family Education Needs: Review discharge instructions, discuss Ask Me Three Transportation: Private vehicle Plan: Anticipate, Jonny will return home, once medically cleared. He will follow up with his community providers, and continue per his discharge plan of care. Jonny will transport via private vehicle by his . [facility] will continue to follow. Social Determinants of Health Screening Social Determinants of health last assessed in clinic: 12/05/24 Will the Patient Participate in the Screening?: Yes Do you worry about having a steady place to live?: no Problems where you live: no known problems In the past 12 months, have you had to go without electric, gas, oil or water in your home?: no 1. Within the past 12 months, we worried whether our food would run out before we got money to buy more.: Never true 2. Within the past 12 months, the food we bought just didn't last and we didn't have money to get more.: Never true Has lack of transportation kept you from medical appointments or from doing things needed for daily living?: no Has anyone in your life made you feel unsafe or unsupported?: no How hard is it for you to pay for the very basics like food, housing, medical care, and heating? Would you say it is:: Not hard at all Do you want help finding or keeping work or a job?: I do not need or want help If for any reason you need help with day-to-day activities such as bathing, preparing meals, shopping, managing finances, etc., do you get the help you need?: I don?t need any help How often do you feel lonely or isolated from those around you?: Sometimes Do you speak a language other than French at home?: No Does the patient want assistance with any of the above?: No Health Related Social Needs Health related social needs: feeling lonely/isolated (Z60.8) Health related social needs details: Pt not requesting help at this time. PFSH All Active Problems (Updated 12/04/24 @ 15:49 by Sina Akhtar MD) Metabolic encephalopathy (Acute) Altered mental status (Acute) Elevated troponin (Acute) Acute respiratory failure with hypoxia and hypercarbia (Acute) Elevated troponin (Acute) Acute exacerbation of chronic obstructive pulmonary disease (COPD) (Acute) Acute respiratory failure with hypoxia and hypercapnia (Acute) Restless leg syndrome (Acute) Presence of cardiac defibrillator (Acute) Overweight (Acute) NSTEMI (non-ST elevated myocardial infarction) (Acute) Insomnia (Acute) Hypertensive disorder (Chronic) DM type 2 (diabetes mellitus, type 2) (Acute) COPD with chronic bronchitis (Acute) Chronic GERD (Acute) CHF with cardiomyopathy (Acute) Bilateral cataracts (Acute) Atrial flutter (Acute) Atherosclerotic coronary vascular disease (Acute) Paroxysmal A-fib (Acute) ICD (implantable cardioverter-defibrillator) in place (Acute) Medtronic cobalt placed at [facility] 04/15/23 (HFpEF) heart failure with preserved ejection fraction (Acute) 04/15 EF 17% per [facility] RH ASCVD (arteriosclerotic cardiovascular disease) (Acute) Known LAD stenosis s/p PCIx2 to TUMOR REGISTRAR RCA per [facility], PCI to LAD RH Acid reflux (Chronic) COPD (chronic obstructive pulmonary disease) (Chronic) Hyperlipidemia (Acute) Diabetes mellitus (Chronic) HTN (hypertension) with goal to be determined (Acute) Medical History BPH (benign prostatic hyperplasia) Social History Smoking/Tobacco Use Status: Former Tobacco Use Smoking risk assessment performed?: Yes Housing: homeless Readmission Within the Past 30 Days Yes or No: No
--- NOTE | 2024-12-05 08:38 | PGE_ITS ---
Date of Service Date of service: 12/05/24 Time of Service: 08:38 Assessment and Plan Assessment and plan (1) Acute respiratory failure with hypoxia and hypercapnia: Status: Acute Assessment and plan: - Likely secondary to COPD exacerbation - Started on methylprednisolone and nebulizers in the emergency department - Will continue 40 mg p.o. prednisone daily, scheduled nebulizers and as needed albuterol - Oxygen saturation down to 80% but improved with 1 L nasal cannula - However, due to hypercapnia seen on VBG with a CO2 of 72 patient was placed on BiPAP therapy with improvement of work of breathing but persistent hypercapnia - ABG had improved with CO2 in the 60s, but went back up as patient had restless night and did not tolerate BiPAP - He was given IM olanzapine and has since been able to tolerate BiPAP - Will check a.m. VBG, but otherwise will track patient's somnolence and mental status (2) Acute exacerbation of chronic obstructive pulmonary disease (COPD): Status: Acute Assessment and plan: - Likely resulting factor in hypoxic and hypercapnic respiratory failure as noted above - Nebulizers and steroids as noted above (3) Metabolic encephalopathy: Status: Acute Assessment and plan: - Secondary to hypercapnia as noted above (4) DM type 2 (diabetes mellitus, type 2): Status: Acute Assessment and plan: - Hold home empagliflozin, semaglutide and metformin - Sliding scale insulin, heart healthy carb consistent diet (5) Elevated troponin: Status: Acute Assessment and plan: - Troponin noted to be about 200 though EKG was unchanged and patient without chest pain - Likely secondary to demand ischemia - Will follow-up a.m. troponin (6) CHF with cardiomyopathy: Status: Acute Assessment and plan: - Significant heart failure with last EF known to be 17% in March 2023 that resulted in implantable cardio defibrillator - Will order echocardiogram but will not be able to obtain until 12/07/2024 - Continue home medication regimen including 40 mg daily Lasix, 20 mg metoprolol XL, as needed sublingual nitro, Entresto, spironolactone (7) Paroxysmal A-fib: Status: Acute Assessment and plan: - Continue home Toprol-XL, amiodarone and Eliquis (8) ICD (implantable cardioverter-defibrillator) in place: Status: Acute Assessment and plan: - Secondary to significant heart failure with reduced ejection fraction as noted above (9) ASCVD (arteriosclerotic cardiovascular disease): Status: Acute Assessment and plan: - History of significant coronary artery disease with last stent placement and March 2023 (10) Hyperlipidemia: Status: Acute Assessment and plan: - Continue home statin (11) HTN (hypertension) with goal to be determined: Status: Acute Assessment and plan: - Continue antihypertensives of part of CHF regimen as noted above Subjective Subjective Interval history since last seen: Patient seen during. When he was more lucid. States that he is breathing better and has no complaints or concerns at this time. Exam Narrative Exam Narrative: fatigued appearing older gentleman laying in bed in no acute distress, awake, alert, oriented to person, place and situation, BiPAP mask in place, heart RRR, lungs with expiratory wheezing that can be heard over BiPAP sounds, abdomen obese, soft, non-tender, non-distended Objective Last Vital Signs Temp 99.0 F 12/04/24 16:51 Pulse 98 H 12/05/24 08:01 Resp 18 12/05/24 08:01 BP 127/81 12/05/24 08:01 Pulse Ox 92 12/05/24 06:00 Laboratory Results - last 24 hr 12/04/24 12/04/24 12/04/24 13:18 14:55 16:12 WBC 7.80 RBC 4.67 Hgb 13.4 L Hct 45.3 MCV 97 H MCH 28.7 MCHC 29.6 L RDW 15.9 H Plt Count 196 MPV 8.6 Immature Gran % 0.8 Neutrophils % 82.2 Lymphocytes % 9.6 Monocytes % 6.5 Eosinophils % 0.5 Basophils % 0.4 Nucleated RBC % 0.0 Absolute Neutrophils 6.41 Absolute Lymphocytes 0.75 L Absolute Monocytes 0.51 Absolute Eosinophils 0.04 Absolute Basophils 0.03 VBG pH 7.25 L 7.27 L 7.28 L VBG pCO2 75 H* 76 H* 72 H* VBG pO2 30 29 26 VBG HCO3 33 H 35 H 34 H VBG Total CO2 31 H 33 H 32 H VBG O2 Saturation 47 46 42 VBG Base Excess 6 H 8 H 7 H Sodium 141 Potassium 4.6 Chloride 101 Carbon Dioxide 36.4 H Anion Gap 3.6 BUN 19 H Creatinine 1.0 Est GFR (CKD-EPI 2020) 80.97 Glucose 139 H Calcium 8.9 Magnesium 2.1 Total Bilirubin 0.3 AST 40 H ALT 48 Alkaline Phosphatase 111 Troponin I 237 H* 297 H* 364 H* NT-Pro-B Natriuret Pep 2614 H Total Protein 7.3 Albumin 3.1 L Trazodone 12/04/24 12/05/24 12/05/24 20:29 05:16 06:10 WBC 5.30 RBC 4.62 Hgb 13.1 L Hct 44.8 MCV 97 H MCH 28.4 MCHC 29.2 L RDW 15.7 H Plt Count 153 MPV 8.9 Immature Gran % Neutrophils % Lymphocytes % Monocytes % Eosinophils % Basophils % Nucleated RBC % Absolute Neutrophils Absolute Lymphocytes Absolute Monocytes Absolute Eosinophils Absolute Basophils VBG pH 7.25 L 7.30 L VBG pCO2 74 H* 63 H* VBG pO2 63 52 VBG HCO3 32 H 31 H VBG Total CO2 30 H 29 VBG O2 Saturation 90 86 VBG Base Excess 5 H 5 H Sodium 141 Potassium 5.5 H Chloride 102 Carbon Dioxide 34.3 H Anion Gap 4.7 BUN 19 H Creatinine 0.9 Est GFR (CKD-EPI 2020) 91.88 Glucose 170 H Calcium 8.6 Magnesium Total Bilirubin AST ALT Alkaline Phosphatase Troponin I NT-Pro-B Natriuret Pep Total Protein Albumin Trazodone Cancelled PAWSS Have you Been Recently Intoxicated or Drunk Within the Last 30 days?: Unable to Obtain Have you Ever Experienced Previous Episodes of Alcohol Withdrawal?: No Have you ever Experienced Withdrawal Seizures?: No Have you ever Experienced Delirium Tremens(DT)s?: No Have you ever undergone Alcohol Rehabilitation Treatment (i.e, inpt ot outpatient treatment programs)?: Yes Have you ever Experienced Blackouts?: No Have you ever Combined Alcohol with other Downers within the last 90 days?: No Have you ever Combined Alcohol with any other Substance of Abuse during the last 90 days?: No Evidence of Increased Autonomic Activity (i.e. HR>120, tremor, sweating, agitation, nausea)?: No Result: 1 Time Spent with Patient Time Spent with Patient: >50 minutes Time was spent: preparing to see the patient(eg.review tests), obtaining and/or reviewing separately otained hiistory, ordering medications,tests, procedures, referring, communicating with other health overnight caregiver, indepentently interpreting results, counseling the patient and care coordination
[2024-12-05] MEDS: Sacubitril/Valsartan 24 mg/26 mg TAB 1 EACH PO ×2 (09:36→19:35)
[2024-12-05] MEDS: Furosemide 40 MG TAB PO (09:36)
[2024-12-05] MEDS: Rosuvastatin 20 MG TAB 40 MG PO (09:36)
[2024-12-05] MEDS: Pantoprazole 40 MG TABCR PO (09:36)
[2024-12-05] MEDS: Amiodarone 200 MG TAB PO (09:37)
[2024-12-05] MEDS: Metoprolol CR 100 MG TABCR 200 MG PO (09:37)
[2024-12-05] MEDS: predniSONE 20 MG TAB 40 MG PO (09:37)
[2024-12-05] MEDS: Apixaban 5 MG TAB PO ×2 (09:37→19:35)
[2024-12-05] MEDS: Insulin Aspart 300 UNITS/3 ML PEN SC ×2 (09:49→16:51)
[2024-12-05] MEDS: Normal Saline Flush 10 ML SYR IVP (09:52)
[2024-12-05] MEDS: Albuterol 2.5 MG/3 ML INH SOLN VIAL UPD (12:30)
[2024-12-05] MEDS: Albuterol/Ipratropium 3 ML UPD VIAL UPD ×2 (16:39→23:33)
[2024-12-05] MEDS: Tamsulosin 0.4 MG CAPCR 0.8 MG PO (19:35)
[2024-12-05 19:39] LABS: Bacteria Negative HPF (Negative); Bilirubin Negative (Negative); Blood Trace-intact (Negative); C & S Indicated? No; Casts Negative LPF (Negative); Clarity Clear (Clear); Crystals Negative HPF (Negative); Epithelial Cells Negative HPF (Negative); Glucose 500 mg/dL (Negative); Ketones Negative (Negative); Leukocyte Esterase Trace (Negative); Mucus Negative (Negative); Nitrite Negative (Negative); RBC 0-2 HPF (0-2); Specific Gravity 1.025 (1.005-1.025); Urobilinogen 0.2 mg/dL (Up to 0.2); WBC 0-2 HPF (0-5); pH 5.5 (5-8)
[2024-12-06] VITALS (35 sets, daily range): BP systolic 88–141; BP diastolic 45–99; PULSE 85–107; RESP 5–26; TEMP 36.5–37.1; O2SAT 89–97
[2024-12-06 05:58] LABS: BE (Venous) 11 mmol/L (-2-3); HCO3 (Venous) 37 mmol/L (23-28); O2 Sat (Venous) 89 %; TCO2 (Venous) 34 mmol/L (24-29); pH (Venous) 7.34 (7.31-7.41); pO2 (Venous) 55 mmHg
[2024-12-06 06:02] LABS: pCO2 (Venous) 69 mmHg (41-51)
[2024-12-06 06:09] LABS: HCT 40.7 % (40.0-50.0); HGB 12.1 g/dL (13.5-17.5); MCH 29.1 pg (27.0-33.0); MCHC 29.7 % (32.0-36.0); MCV 98 fL (80-95); MPV 8.9 fL (8.0-11.0); Platelet Count 173 10^3/uL (130-400); RBC 4.16 10^6/uL (4.36-5.78); RDW 15.9 % (11.8-14.1); RDW-SD 56.4 fL
[2024-12-06 06:21] LABS: Anion Gap 0.3 mmol/L (3-11); BUN 20 mg/dL (7-18); CO2 38.7 mmol/L (21.0-32.0); CREATININE 0.8 mg/dL (0.70-1.30); Calcium 8.3 mg/dL (8.5-10.1); Chloride 104 mmol/L (98-107); Estimated GFR 95.21 (mL/min/1.73m2); Glucose 121 mg/dL (74-106); Potassium 4.1 mmol/L (3.5-5.1); Sodium 143 mmol/L (136-145)
[2024-12-06] MEDS: Sacubitril/Valsartan 24 mg/26 mg TAB 1 EACH PO ×2 (08:03→19:59)
[2024-12-06] MEDS: Apixaban 5 MG TAB PO ×2 (08:03→19:59)
[2024-12-06] MEDS: Pantoprazole 40 MG TABCR PO (08:03)
[2024-12-06] MEDS: Rosuvastatin 20 MG TAB 40 MG PO (08:03)
[2024-12-06] MEDS: predniSONE 20 MG TAB 40 MG PO (08:03)
[2024-12-06] MEDS: Amiodarone 200 MG TAB PO (08:04)
[2024-12-06] MEDS: Spironolactone 25 MG TAB PO (08:04)
[2024-12-06] MEDS: Furosemide 40 MG TAB PO (08:04)
[2024-12-06] MEDS: Metoprolol CR 100 MG TABCR 200 MG PO (08:04)
[2024-12-06] MEDS: Tiotropium/Olodaterol 10 PUFF INHALER 2 PUFF IH (08:26)
[2024-12-06] MEDS: Budesonide/Formoterol 160/4.5 6 GM 60 PUFF INH IH ×2 (08:26→19:53)
[2024-12-06] MEDS: Albuterol/Ipratropium 3 ML UPD VIAL UPD ×2 (09:50→13:13)
[2024-12-06] MEDS: THIAMINE 500 MG in Normal Saline 100 ML 200 MG IVPB (10:35)
[2024-12-06] MEDS: Normal Saline Flush 10 ML SYR IVP ×3 (10:39→16:55)
[2024-12-06] MEDS: Insulin Aspart 300 UNITS/3 ML PEN SC ×2 (11:57→16:55)
--- NOTE | 2024-12-06 12:04 | W.PM.PROGNOT ---
Date of Service Date of service: 12/06/24 Time of Service: 12:05 Assessment and Plan Assessment and plan (1) Acute respiratory failure with hypoxia and hypercapnia: Status: Acute Assessment and plan: - Likely secondary to COPD exacerbation - Started on methylprednisolone and nebulizers in the emergency department - Will continue 40 mg p.o. prednisone daily, scheduled nebulizers and as needed albuterol - Oxygen saturation down to 80% but improved with 1 L nasal cannula - However, due to hypercapnia seen on VBG with a CO2 of 72 patient was placed on BiPAP therapy with improvement of work of breathing but persistent hypercapnia - ABG had improved with CO2 in the 60s, but went back up as patient had restless night and did not tolerate BiPAP - He was given IM olanzapine and has since been able to tolerate BiPAP - Will check a.m. VBG, but otherwise will track patient's somnolence and mental status 12/06/24 on albuterol/combivent/budesonide/formeterol/tiotropium/olodaterol as well as prednisone 40mg daily Pt currently on 4LNC at 93% (2) Acute exacerbation of chronic obstructive pulmonary disease (COPD): Status: Acute Assessment and plan: - Likely resulting factor in hypoxic and hypercapnic respiratory failure as noted above - Nebulizers and steroids as noted above 12/06/24 wean as tolerated will downgrade (3) Metabolic encephalopathy: Status: Acute Assessment and plan: - Secondary to hypercapnia as noted above 12/06/24 resolved (4) DM type 2 (diabetes mellitus, type 2): Status: Acute Assessment and plan: - Hold home empagliflozin, semaglutide and metformin - Sliding scale insulin, heart healthy carb consistent diet (5) Elevated troponin: Status: Acute Assessment and plan: - Troponin noted to be about 200 though EKG was unchanged and patient without chest pain - Likely secondary to demand ischemia - Will follow-up a.m. troponin 12/06/24 recheck trop in am (6) CHF with cardiomyopathy: Status: Acute Assessment and plan: - Significant heart failure with last EF known to be 17% in March 2023 that resulted in implantable cardio defibrillator - Will order echocardiogram but will not be able to obtain until 12/07/2024 - Continue home medication regimen including 40 mg daily Lasix, 20 mg metoprolol XL, as needed sublingual nitro, Entresto, spironolactone 12/06/24 echo pending for am (7) Paroxysmal A-fib: Status: Acute Assessment and plan: - Continue home Toprol-XL, amiodarone and Eliquis (8) ICD (implantable cardioverter-defibrillator) in place: Status: Acute Assessment and plan: - Secondary to significant heart failure with reduced ejection fraction as noted above (9) ASCVD (arteriosclerotic cardiovascular disease): Status: Acute Assessment and plan: - History of significant coronary artery disease with last stent placement and March 2023 (10) Hyperlipidemia: Status: Acute Assessment and plan: - Continue home statin (11) HTN (hypertension) with goal to be determined: Status: Acute Assessment and plan: - Continue antihypertensives of part of CHF regimen as noted above Subjective Subjective Interval history since last seen: Pt seen and examined in his room this am. No new complaints. POC d/w pt, who was at bedside as well as ICU nurse during ICU huddle. Exam Narrative Exam Narrative: fatigued appearing older gentleman laying in bed in no acute distress, awake, alert, oriented to person, place and situation, BiPAP mask in place, heart RRR, lungs with expiratory wheezing that can be heard over BiPAP sounds, abdomen obese, soft, non-tender, non-distended Objective Last Vital Signs Temp 36.8 C 12/05/24 20:00 Pulse 104 H 12/06/24 10:05 Resp 22 12/06/24 10:00 BP 106/57 L 12/06/24 10:00 Pulse Ox 93 12/06/24 09:50 Laboratory Results - last 24 hr 12/05/24 12/06/24 18:50 05:48 WBC 7.20 RBC 4.16 L Hgb 12.1 L Hct 40.7 MCV 98 H MCH 29.1 MCHC 29.7 L RDW 15.9 H Plt Count 173 MPV 8.9 VBG pH 7.34 VBG pCO2 69 H* VBG pO2 55 VBG HCO3 37 H VBG Total CO2 34 H VBG O2 Saturation 89 VBG Base Excess 11 H Sodium 143 Potassium 4.1 D Chloride 104 Carbon Dioxide 38.7 H Anion Gap 0.3 L BUN 20 H Creatinine 0.8 Est GFR (CKD-EPI 2020) 95.21 Glucose 121 H Calcium 8.3 L Urine Color Yellow Urine Clarity Clear Urine pH 5.5 Ur Specific [place] 1.025 Urine Protein 30 H Urine Ketones Negative Urine Blood Trace-intact H Urine Nitrite Negative Urine Bilirubin Negative Urine Urobilinogen 0.2 Ur Leukocyte Esterase Trace H Urine RBC 0-2 Urine WBC 0-2 Ur Epithelial Cells Negative Urine Crystals Negative Urine Bacteria Negative Urine Casts Negative Urine Mucus Negative Ur Culture Indicated? No Urine Glucose 500 H PAWSS Have you Been Recently Intoxicated or Drunk Within the Last 30 days?: Yes Have you Ever Experienced Previous Episodes of Alcohol Withdrawal?: No Have you ever Experienced Withdrawal Seizures?: No Have you ever Experienced Delirium Tremens(DT)s?: No Have you ever undergone Alcohol Rehabilitation Treatment (i.e, inpt ot outpatient treatment programs)?: Yes Have you ever Experienced Blackouts?: No Have you ever Combined Alcohol with other Downers within the last 90 days?: No Have you ever Combined Alcohol with any other Substance of Abuse during the last 90 days?: No Evidence of Increased Autonomic Activity (i.e. HR>120, tremor, sweating, agitation, nausea)?: Yes Result: 3 Time Spent with Patient Time Spent with Patient: 25-34 minutes Time was spent: preparing to see the patient(eg.review tests), obtaining and/or reviewing separately otained hiistory, ordering medications,tests, procedures, referring, communicating with other health career center advisor, indepentently interpreting results, counseling the patient and care coordination
--- NOTE | 2024-12-06 13:31 | PGE_ITS ---
Date of Service Date of service: 12/06/24 Time of Service: 13:00 Objective Last Vital Signs Temp 36.8 C 12/05/24 20:00 Pulse 94 H 12/06/24 13:26 Resp 22 12/06/24 10:00 BP 106/57 L 12/06/24 10:00 Pulse Ox 92 12/06/24 13:13 Laboratory Results - last 24 hr 12/05/24 12/06/24 18:50 05:48 WBC 7.20 RBC 4.16 L Hgb 12.1 L Hct 40.7 MCV 98 H MCH 29.1 MCHC 29.7 L RDW 15.9 H Plt Count 173 MPV 8.9 VBG pH 7.34 VBG pCO2 69 H* VBG pO2 55 VBG HCO3 37 H VBG Total CO2 34 H VBG O2 Saturation 89 VBG Base Excess 11 H Sodium 143 Potassium 4.1 D Chloride 104 Carbon Dioxide 38.7 H Anion Gap 0.3 L BUN 20 H Creatinine 0.8 Est GFR (CKD-EPI 2020) 95.21 Glucose 121 H Calcium 8.3 L Urine Color Yellow Urine Clarity Clear Urine pH 5.5 Ur Specific [place] 1.025 Urine Protein 30 H Urine Ketones Negative Urine Blood Trace-intact H Urine Nitrite Negative Urine Bilirubin Negative Urine Urobilinogen 0.2 Ur Leukocyte Esterase Trace H Urine RBC 0-2 Urine WBC 0-2 Ur Epithelial Cells Negative Urine Crystals Negative Urine Bacteria Negative Urine Casts Negative Urine Mucus Negative Ur Culture Indicated? No Urine Glucose 500 H PAWSS Have you Been Recently Intoxicated or Drunk Within the Last 30 days?: Yes Have you Ever Experienced Previous Episodes of Alcohol Withdrawal?: No Have you ever Experienced Withdrawal Seizures?: No Have you ever Experienced Delirium Tremens(DT)s?: No Have you ever undergone Alcohol Rehabilitation Treatment (i.e, inpt ot outpatient treatment programs)?: Yes Have you ever Experienced Blackouts?: No Have you ever Combined Alcohol with other Downers within the last 90 days?: No Have you ever Combined Alcohol with any other Substance of Abuse during the last 90 days?: No Evidence of Increased Autonomic Activity (i.e. HR>120, tremor, sweating, agitation, nausea)?: Yes Result: 3 Time Spent with Patient Time Spent with Patient: <25 minutes Time was spent: preparing to see the patient(eg.review tests), obtaining and/or reviewing separately [facility] hiistory, ordering medications,tests, procedures, referring, communicating with other health lawn care professional, indepentently interpreting results, counseling the patient and care coordination
--- NOTE | 2024-12-06 15:58 | W.PC.ACHO ---
Registration Status: ADM IN Primary Language: Preferred Language: ED Information & Data Chief Complaint GenMedical 12/04/24 13:53 Triage Note Pt reports slurred 12/04/24 12:59 speech over the past week. LKW a couple weeks ago. Pt A/OX4, complains of SOB. states he is forgetting things and having hallucinations. reports this is more when he is sleeping. Pt denies CP. Past 4 ppd smoker for 40 yrs. Medical / Surgical History (Last Reviewed 12/04/24 @ 13:48 by Sam Perez MD) BPH (benign prostatic hyperplasia) Most Recent Vital Signs Temperature 37 C 12/06/24 15:43 Temperature Source Temporal Artery Scan 12/06/24 15:43 Pulse 99 H 12/06/24 15:43 Pulse 98 H 12/06/24 14:02 Respiratory Rate 20 12/06/24 15:43 Respiratory Effort Short of Breath 12/04/24 15:44 Respiratory Depth Normal 12/04/24 15:44 Respiratory Pattern Normal 12/04/24 15:44 Blood Pressure 106/60 12/06/24 15:43 Blood Pressure Mean 75 12/06/24 15:43 Blood Pressure Position Sitting 12/04/24 12:59 Pulse Oximetry 94 12/06/24 15:43 Oxygen Delivery Method Nasal Cannula 12/06/24 15:43 Oxygen Flow Rate 2 12/06/24 15:43 Fraction of Inspired Oxygen (FIO2) 30 12/06/24 04:25 Pain Level 0 12/06/24 13:25 Comment VS taken after exertion; pT ambulated from ICU to MS rm 226 12/06/24 15:43 Allergies Penicillins Adverse Reaction (Verified 12/04/24 13:19) Skin Rash Active Medications Generic Name Dose Route Start Last Admin Trade Name Freq PRN Reason Stop Dose Admin Albuterol Sulfate 2.5 mg 12/04/24 17:22 12/05/24 12:30 Albuterol 2.5 Mg/3 Ml Inh Soln Vial UPD 2.5 mg Q2H PRN PRN Administration Albuterol/Ipratropium 3 ml 12/04/24 17:22 12/06/24 13:13 Albuterol/Ipratropium 3 Ml Upd Vial UPD 3 ml Q6H PRN PRN Administration Amiodarone HCl 200 mg 12/05/24 08:30 12/06/24 08:04 Amiodarone 200 Mg Tab PO 200 mg DAILY AMANDA Administration Apixaban 5 mg 12/04/24 20:00 12/06/24 08:03 Apixaban 5 Mg Tab PO 5 mg BID AMANDA Administration Budesonide/Formoterol Fumarate 2 puff 12/05/24 20:00 12/06/24 08:26 Budesonide/Formoterol 160/4.5 6 Gm 60 Puff Inh IH 2 puff BID AMANDA Administration Furosemide 40 mg 12/05/24 08:30 12/06/24 08:04 Furosemide 40 Mg Tab PO 40 mg DAILY AMANDA Administration Thiamine HCl 500 mg/ Sodium 105 mls @ 200 mls/hr 12/06/24 10:00 12/06/24 11:41 Chloride IVPB 12/14/24 09:02 Infused DAILY AMANDA Infusion Insulin Aspart 0 units 12/04/24 17:22 12/06/24 11:57 Insulin Aspart 300 Units/3 Ml Pen SC 1 units 0800,1200,1700,2200 AMANDA Administration Protocol Metoprolol Succinate 200 mg 12/05/24 08:30 12/06/24 08:04 Metoprolol Cr 100 Mg Tabcr PO 200 mg DAILY AMANDA Administration Pantoprazole Sodium 40 mg 12/05/24 07:30 12/06/24 08:03 Pantoprazole 40 Mg Tabcr PO 40 mg DAILY@0730 AMANDA Administration Prednisone 40 mg 12/05/24 08:30 12/06/24 08:03 Prednisone 20 Mg Tab PO 40 mg DAILY AMANDA Administration Rosuvastatin Calcium 40 mg 12/05/24 08:30 12/06/24 08:03 Rosuvastatin 20 Mg Tab PO 40 mg DAILY AMANDA Administration Sacubitril/Valsartan 1 each 12/04/24 20:00 12/06/24 08:03 Sacubitril/Valsartan 24 Mg/26 Mg Tab PO 1 each BID AMANDA Administration Sodium Chloride 0 ml 12/04/24 20:01 12/06/24 11:37 Normal Saline Flush 10 Ml Syr IVP 20 ml PRN PRN Administration Spironolactone 25 mg 12/05/24 08:30 12/06/24 08:04 Spironolactone 25 Mg Tab PO 25 mg DAILY AMANDA Administration Tamsulosin HCl 0.8 mg 12/04/24 20:00 12/05/24 19:35 Tamsulosin 0.4 Mg Capcr PO 0.8 mg HS AMANDA Administration Tiotropium [place]/Olodaterol 2 puff 12/06/24 08:30 12/06/24 08:26 Tiotropium/Olodaterol 10 Puff Inhaler IH 2 puff DAILY AMANDA Administration IV IV Catheter Type [Right Upper Peripheral IV arm] IV Catheter Type [Left Peripheral IV Antecubital] IV Catheter Type [Right [place] Antecubital] IV Catheter Gauge [Right Upper 18 arm] IV Catheter Gauge [Left 20 Antecubital] IV Catheter Gauge [Right 18 Antecubital] Diagnostics 12/06/24 12/05/24 Range/Units 05:48 18:50 WBC 7.20 (4.4-10.8) 10^3/uL RBC 4.16 L (4.36-5.78) 10^6/uL Hgb 12.1 L (13.5-17.5) g/dL Hct 40.7 (40.0-50.0) % MCV 98 H (80-95) fL MCH 29.1 (27.0-33.0) pg MCHC 29.7 L (32.0-36.0) % RDW 15.9 H (11.8-14.1) % Plt Count 173 (130-400) 10^3/uL MPV 8.9 (8.0-11.0) fL VBG pH 7.34 (7.31-7.41) VBG pCO2 69 H* (41-51) mmHg VBG pO2 55 mmHg VBG HCO3 37 H (23-28) mmol/L VBG Total CO2 34 H (24-29) mmol/L VBG O2 Saturation 89 % VBG Base Excess 11 H (-2-3) mmol/L Sodium 143 (136-145) mmol/L Potassium 4.1 D (3.5-5.1) mmol/L Chloride 104 (98-107) mmol/L Carbon Dioxide 38.7 H (21.0-32.0) mmol/L Anion Gap 0.3 L (3-11) mmol/L BUN 20 H (7-18) mg/dL Creatinine 0.8 (0.70-1.30) mg/dL Est GFR (CKD-EPI 2020) 95.21 (mL/min/1.73m2) Glucose 121 H (74-106) mg/dL Calcium 8.3 L (8.5-10.1) mg/dL Urine Color Yellow (Yellow) Urine Clarity Clear (Clear) Urine pH 5.5 (5-8) Ur Specific [place] 1.025 (1.005-1.025) Urine Protein 30 H (Neg-Trace) mg/dL Urine Ketones Negative (Negative) mg/dL Urine Blood Trace-intact H (Negative) Urine Nitrite Negative (Negative) Urine Bilirubin Negative (Negative) Urine Urobilinogen 0.2 (Up to 0.2) mg/dL Ur Leukocyte Esterase Trace H (Negative) Urine RBC 0-2 (0-2) HPF Urine WBC 0-2 (0-5) HPF Ur Epithelial Cells Negative (Negative) HPF Urine Crystals Negative (Negative) HPF Urine Bacteria Negative (Negative) HPF Urine Casts Negative (Negative) LPF Urine Mucus Negative (Negative) Ur Culture Indicated? No Urine Glucose 500 H (Negative) mg/dL [id number]-[id number] Documentation Fingerstick Glucose Start: 12/04/24 17:22 Freq: .ACHS Status: Active Protocol: Activity Type Activity Date Activity User E-sign Co-sign Detail Recorded Client Recorded Date Recorded By Document 12/06/24 11:56 BKG DAEMON(3) [id number] 12/06/24 11:57 BKG DAEMON(4) Intake and Output - 24 Hour Total 12/04/24 12:55 thru 12/06/24 14:01 Intake Total 1076 Output Total 3800 Balance -2724 Weight 110.7 kg Intake: IV 226 Oral 850 Output: Urine 3800 Other: Urine Color Yellow Urine Appearance Clear Urine Odor None Comment x1 unmeasured, mixed with liquid stool. Stool Size Moderate Stool Characteristics Liquid [place] Risk Assessment History of Falls No History 12/04/24 15:44 Fall Total Score 0 12/04/24 15:44 Level of Risk Standard/Low Risk 12/04/24 15:44 Problems (Last Reviewed 12/04/24 @ 13:48 by Sam Perez MD) Metabolic encephalopathy (Acute) Elevated troponin (Acute) Acute exacerbation of chronic obstructive pulmonary disease (COPD) (Acute) Acute respiratory failure with hypoxia and hypercapnia (Acute) DM type 2 (diabetes mellitus, type 2) (Acute) CHF with cardiomyopathy (Acute) Paroxysmal A-fib (Acute) ICD (implantable cardioverter-defibrillator) in place (Acute) ASCVD (arteriosclerotic cardiovascular disease) (Acute) Hyperlipidemia (Acute) HTN (hypertension) with goal to be determined (Acute) v v v v v v v v v Sending and/or Receiving Nurses: Please use comment section below to note any information pertinent to the patient hand-off not included above. Information / Comments: Report received from: Report received from Jeanne, Silk Snapper, under supervision of Mely ALVARADO. FULL SBAR report given, all questions answered.
[2024-12-06] MEDS: Tamsulosin 0.4 MG CAPCR 0.8 MG PO (19:59)
[2024-12-07] VITALS (7 sets, daily range): BP systolic 114–137; BP diastolic 62–78; PULSE 74–98; RESP 15–22; TEMP 36.5–37.4; O2SAT 89–94
[2024-12-07 06:39] LABS: Abs Immature Grans 0.02 10^3/uL (0.0-0.06); Absolute Basophil Count 0.01 10^3/uL (0.0-0.2); Absolute Eosinophil Count 0.06 10^3/uL (0.0-0.7); Absolute Lymphocyte Count 1.18 10^3/uL (1.2-3.4); Absolute Monocyte Count 0.62 10^3/uL (0.1-0.8); Absolute Neutrophil Count 4.39 10^3/uL (1.2-6.7); Basophils % 0.2 %; HCT 40.7 % (40.0-50.0); Immature Grans % 0.3 %; Lymphocytes % 18.8 %; MCH 28.2 pg (27.0-33.0); MCHC 29.5 % (32.0-36.0); MCV 96 fL (80-95); MPV 8.8 fL (8.0-11.0); Monocytes % 9.9 %; Neutrophils % 69.8 %; Platelet Count 185 10^3/uL (130-400); RBC 4.26 10^6/uL (4.36-5.78); RDW 15.8 % (11.8-14.1); RDW-SD 55.7 fL; WBC 6.28 10^3/uL (4.4-10.8)
[2024-12-07 07:09] LABS: ALT 29 U/L (16-63); AST 18 U/L (15-37); Albumin 2.7 g/dL (3.4-5.0); Alkaline Phosphatase 78 U/L (46-116); Anion Gap 1.2 mmol/L (3-11); BUN 18 mg/dL (7-18); Bilirubin, Total 0.3 mg/dL (0.2-1.0); CO2 37.8 mmol/L (21.0-32.0); CREATININE 0.8 mg/dL (0.70-1.30); Calcium 8.5 mg/dL (8.5-10.1); Chloride 105 mmol/L (98-107); Estimated GFR 95.21 (mL/min/1.73m2); Glucose 107 mg/dL (74-106); Potassium 3.7 mmol/L (3.5-5.1); Sodium 144 mmol/L (136-145); Total Protein 6.2 g/dL (6.4-8.2)
[2024-12-07 07:11] LABS: Troponin I 190 ng/L (<or=76)
[2024-12-07] MEDS: Tiotropium/Olodaterol 10 PUFF INHALER 2 PUFF IH (08:06)
[2024-12-07] MEDS: Budesonide/Formoterol 160/4.5 6 GM 60 PUFF INH IH (08:06)
[2024-12-07] MEDS: Rosuvastatin 20 MG TAB 40 MG PO (08:35)
[2024-12-07] MEDS: predniSONE 20 MG TAB 40 MG PO (08:36)
[2024-12-07] MEDS: Furosemide 40 MG TAB PO (08:36)
[2024-12-07] MEDS: Apixaban 5 MG TAB PO (08:36)
[2024-12-07] MEDS: Pantoprazole 40 MG TABCR PO (08:36)
[2024-12-07] MEDS: Sacubitril/Valsartan 24 mg/26 mg TAB 1 EACH PO (08:37)
[2024-12-07] MEDS: Amiodarone 200 MG TAB PO (08:37)
[2024-12-07] MEDS: Metoprolol CR 100 MG TABCR 200 MG PO (08:37)
[2024-12-07] MEDS: Spironolactone 25 MG TAB PO (08:37)
[2024-12-07] MEDS: Normal Saline Flush 10 ML SYR IVP (08:37)
[2024-12-07] MEDS: THIAMINE 500 MG in Normal Saline 100 ML 200 MG IVPB (09:57)
--- NOTE | 2024-12-07 10:09 | CMPROGNOTE_ITS ---
Date of service: 12/07/24 Time of Service: 12:57 Care Management Progress Note Progress Note Text Progress Note Text: Jonny was sitting in his chair, on .5 L O2 NC and was on the phone with his , when CM arrived. Jonny states, he may have AD on file at [facility] [place]; CM offered the phone number to the Advanced Care Planning department [facility] [place] so he can call and verify. CM offered a [place] AD form in case he did not AD on file, there. CM will continue to follow. Discharge Potential Discharge Needs: PCP F/U Appt Anticipated Barriers to Discharge: Medical Status Patient/Family Education Needs: Review discharge instructions, discuss Ask Me Three Transportation: Private vehicle Plan: Anticipate, Jonny will return home, once medically cleared. He will follow up with his community providers, and continue per his discharge plan of care. Jonny will transport via private vehicle by his . CM will continue to follow. Social Determinants of Health Screening Social Determinants of health last assessed in clinic: 12/07/24 Will the Patient Participate in the Screening?: Yes Do you worry about having a steady place to live?: no Problems where you live: no known problems In the past 12 months, have you had to go without electric, gas, oil or water in your home?: no 1. Within the past 12 months, we worried whether our food would run out before we got money to buy more.: Never true 2. Within the past 12 months, the food we bought just didn't last and we didn't have money to get more.: Never true Has lack of transportation kept you from medical appointments or from doing things needed for daily living?: no Has anyone in your life made you feel unsafe or unsupported?: no How hard is it for you to pay for the very basics like food, housing, medical care, and heating? Would you say it is:: Not hard at all Do you want help finding or keeping work or a job?: I do not need or want help If for any reason you need help with day-to-day activities such as bathing, preparing meals, shopping, managing finances, etc., do you get the help you need?: I don?t need any help How often do you feel lonely or isolated from those around you?: Sometimes Do you speak a language other than [place]ones[place] at home?: No Does the patient want assistance with any of the above?: No Health Related Social Needs Health related social needs: feeling lonely/isolated (Z60.8) Health related social needs details: Pt not requesting help at this time.
[2024-12-07] MEDS: Insulin Aspart 300 UNITS/3 ML PEN SC ×2 (12:02→17:03)
--- NOTE | 2024-12-07 12:58 | W.PM.PROGNOT ---
Date of Service Date of service: 12/07/24 Time of Service: 12:59 Assessment and Plan Assessment and plan (1) Acute respiratory failure with hypoxia and hypercapnia: Start date: 12/07/24 Status: Acute Assessment and plan: - Likely secondary to COPD exacerbation - Started on methylprednisolone and nebulizers in the emergency department - Will continue 40 mg p.o. prednisone daily, scheduled nebulizers and as needed albuterol - Oxygen saturation down to 80% but improved with 1 L nasal cannula - However, due to hypercapnia seen on VBG with a CO2 of 72 patient was placed on BiPAP therapy with improvement of work of breathing but persistent hypercapnia - ABG had improved with CO2 in the 60s, but went back up as patient had restless night and did not tolerate BiPAP - He was given IM olanzapine and has since been able to tolerate BiPAP - Will check a.m. VBG, but otherwise will track patient's somnolence and mental status on albuterol/combivent/budesonide/formeterol/tiotropium/olodaterol as well as prednisone 40mg daily Pt currently on 4LNC at 93% On 1 liter of O2 sat 91% - continue to wean as tolerated and cosnider need for home O2 as per discussion with RT (2) Acute exacerbation of chronic obstructive pulmonary disease (COPD): Start date: 12/07/24 Status: Acute Assessment and plan: - Likely resulting factor in hypoxic and hypercapnic respiratory failure as noted above - Nebulizers and steroids as noted above wean as tolerated- Not on oxygen at baseline at home will downgrade (3) Metabolic encephalopathy: Start date: 12/07/24 Status: Acute Assessment and plan: - Secondary to hypercapnia as noted above no further confusion - resolved (4) DM type 2 (diabetes mellitus, type 2): Start date: 12/07/24 Status: Acute Assessment and plan: - Hold home empagliflozin, semaglutide and metformin - Sliding scale insulin, heart healthy carb consistent diet (5) Elevated troponin: Start date: 12/07/24 Status: Acute Assessment and plan: - Troponin noted to be about 200 though EKG was unchanged and patient without chest pain - Likely secondary to demand ischemia - Will follow-up a.m. troponin recheck trop in am (6) CHF with cardiomyopathy: Start date: 12/07/24 Status: Acute Assessment and plan: - Significant heart failure with last EF known to be 17% in March 2023 that resulted in implantable cardio defibrillator - Echocardiogram pending - Continue home medication regimen GDMT including 20 mg metoprolol XL, , Entresto, spironolactone -Continue 40 mg daily Lasix, an PRN nitro SL (7) Paroxysmal A-fib: Start date: 12/07/24 Status: Acute Assessment and plan: - Ongoing home Toprol-XL, amiodarone and Eliquis Will not need pharmacological DVT prophylaxis (8) ICD (implantable cardioverter-defibrillator) in place: Start date: 12/07/24 Status: Acute Assessment and plan: - Secondary to significant heart failure with reduced ejection fraction as noted above (9) ASCVD (arteriosclerotic cardiovascular disease): Start date: 12/07/24 Status: Acute Assessment and plan: - History of significant coronary artery disease with last stent placement and March 2023 (10) Hyperlipidemia: Start date: 12/07/24 Status: Acute Assessment and plan: - Continue home statin (11) HTN (hypertension) with goal to be determined: Start date: 12/07/24 Status: Acute Assessment and plan: - Continue antihypertensives of part of CHF regimen as noted above discussed with Dr. Guevara Objective Last Vital Signs Temp 36.9 C 12/07/24 11:39 Pulse 94 H 12/07/24 11:39 Resp 20 12/07/24 11:39 BP 114/62 12/07/24 11:39 Pulse Ox 91 L 12/07/24 11:39 Laboratory Results - last 24 hr 12/07/24 05:46 WBC 6.28 RBC 4.26 L Hgb 12.0 L Hct 40.7 MCV 96 H MCH 28.2 MCHC 29.5 L RDW 15.8 H Plt Count 185 MPV 8.8 Immature Gran % 0.3 Neutrophils % 69.8 Lymphocytes % 18.8 Monocytes % 9.9 Eosinophils % 1.0 Basophils % 0.2 Nucleated RBC % 0.0 Absolute Neutrophils 4.39 Absolute Lymphocytes 1.18 L Absolute Monocytes 0.62 Absolute Eosinophils 0.06 Absolute Basophils 0.01 Sodium 144 Potassium 3.7 Chloride 105 Carbon Dioxide 37.8 H Anion Gap 1.2 L BUN 18 Creatinine 0.8 Est GFR (CKD-EPI 2020) 95.21 Glucose 107 H Calcium 8.5 Total Bilirubin 0.3 AST 18 ALT 29 Alkaline Phosphatase 78 Troponin I 190 H* Total Protein 6.2 L Albumin 2.7 L PAWSS Have you Been Recently Intoxicated or Drunk Within the Last 30 days?: Yes Have you Ever Experienced Previous Episodes of Alcohol Withdrawal?: No Have you ever Experienced Withdrawal Seizures?: No Have you ever Experienced Delirium Tremens(DT)s?: No Have you ever undergone Alcohol Rehabilitation Treatment (i.e, inpt ot outpatient treatment programs)?: Yes Have you ever Experienced Blackouts?: No Have you ever Combined Alcohol with other Downers within the last 90 days?: No Have you ever Combined Alcohol with any other Substance of Abuse during the last 90 days?: No Evidence of Increased Autonomic Activity (i.e. HR>120, tremor, sweating, agitation, nausea)?: Yes Result: 3 Time Spent with Patient Time Spent with Patient: >50 minutes Time was spent: preparing to see the patient(eg.review tests), obtaining and/or reviewing separately otained hiistory, ordering medications,tests, procedures, referring, communicating with other health reproductive healthcare assistant, indepentently interpreting results, counseling the patient and care coordination
--- NOTE | 2024-12-07 13:59 | IN_ITS ---
PT Notes Visit Reasons: Acute hypoxic and hypercapnic respiratory failure Physical Therapy Inpatient Initial Evaluation Date: 12/07/2024 Referring Doctor: Nelida Torres MD PT Orders: PT CONSULT: Safety consult for discharge Precautions: Telemetry, O2 sats titrate to keep greater than 88% Patient Profile/Admitting Diagnosis: Jonny is a 69 yo male who presented to the ED with altered mental status and SOB. Pt dx of Acute respiratory failure with hypoxia and hypercapnea likely secondary to COPD exacerbation. Pt rtreated with IV steroids, nebs, BiPAP and supplemental oxygen. Pt has tolerated titrating of oxygen to RA. PMHX: Metabolic encephalopathy (Acute) Altered mental status (Acute) Elevated troponin (Acute) Acute respiratory failure with hypoxia and hypercarbia (Acute) Elevated troponin (Acute) Acute exacerbation of chronic obstructive pulmonary disease (COPD) (Acute) Acute respiratory failure with hypoxia and hypercapnia (Acute) Restless leg syndrome (Acute) Presence of cardiac defibrillator (Acute) Overweight (Acute) NSTEMI (non-ST elevated myocardial infarction) (Acute) Insomnia (Acute) Hypertensive disorder (Chronic) DM type 2 (diabetes mellitus, type 2) (Acute) COPD with chronic bronchitis (Acute) Chronic GERD (Acute) CHF with cardiomyopathy (Acute) Bilateral cataracts (Acute) Atrial flutter (Acute) Atherosclerotic coronary vascular disease (Acute) Paroxysmal A-fib (Acute) ICD (implantable cardioverter-defibrillator) in place (Acute) Medtronic cobalt placed at [facility] 04/15/23(HFpEF) heart failure with preserved ejection fraction (Acute) 04/15 EF 17% per [facility] RHASCVD (arteriosclerotic cardiovascular disease) (Acute) Known LAD stenosis s/p PCIx2 to 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 Patient is independent without device independent ADLs. 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 Equipment Owned/DME: [employer]ane [employer] Subjective: Patient reports he feels much better is hoping to go home soon but willing to stay as long as he needs to. Objective: [] General Observation: Male seated in chair no longer on supplemental oxygen. Telemetry in place Mental Status: Alert and oriented x 4, able to follow instructions, cooperative agreeable to participate in eval Pain: Denies ROM: [] BUE: WFL BLE WFL Strength: [] Right Upper Extremity: 5/5 Left Upper Extremity: 5/5 Right Lower Extremity: 5/5 Left Lower Extremity: 5/5 Sensation: Intact Bed Mobility/Transfers: [] Supine to sit independent Sit to stand independent Stand to sit independent Bed to chair independent Gait: amb 600 feet without assistive device independent. Stairs: 3 4 steps? and 2 6 steps with rails independent with reciprocal pattern Balance: [] Static Sitting: Normal Dynamic Sitting: good Static Standing: Normal Dynamic Standing: good Special Tests: [] Mobility Limitations Standardized Measure [] [facility] AM-PAC 6 clicks Basic Mobility Inpatient Short Form: [] Raw Score: 24 CMS Score: 0% Informed Consent/Education: Patient instructed in purpose of PT consult. Patient education provided on use of pursed lip breathing for recovery and during ambulation to reduce dyspnea. Assessment: Jonny is a 69 yo male who presents with diagnosis of Acute respirator failure with hypoxia and hypercapnea, COPD exacerbation, CHF. Pt demonstrates independence with bed mobility, transfers , ambulation and stairs without AD. Pt does demonstrate reduced pacing, breath control and energy conservation st rategies however is able to sustain sats >92% throughout functional mobility. Skilled PT services are not indicated as pt is independent with all mobility. Patient is assessed as a low complexity based on the following: History: 69-year-old male with impairment level findings, functional limitations, and past medical history as indicated above Examination: Demonstrable impairment in strength, balance, and mobility level with underlying impairments and functional limitations as documented above Presentation: Stable Decision Making: Low Goals: N/A. Plan of Care/Treatment Plan: N/A. PT evaluation and 1-2 treatment session only for functional mobility training using recommended AD and for HEP instruction. DISCHARGE RECOMMENDATIONS: Home when medically appropriate with no further skilled PT indicated TREATMENT CODE/TIME: 78906,34591/ [id number] Thank you for the opportunity to participate in the care of this patient. Cielo Valiente PT [facility]
--- NOTE | 2024-12-07 15:30 | DI.US_ITS ---
APPROVED REPORT EXAM: Comprehensive 2D, Doppler, and color-flow Echocardiogram Patient Location: In-Patient Agricultural Produce Sorter: Bora Dent RDCS (AE) Other Information Study Quality: Adequate Conclusion Normal left ventricular wall thickness and chamber size. Ejection fraction is 50 to 55%. Wall motion is normal Normal right ventricular size and function Both atria are normal in size Device lead noted in the right heart There are no structural valvular abnormalities Mild mitral regurgitation Ascending aorta measures 3.81 cm Wall motion Left Ventricle The left ventricle is normal size. The left ventricular systolic function is normal. The left ventricular ejection fraction is within the normal range. There is normal left ventricular wall thickness. There is normal LV segmental wall motion. There is no ventricular septal defect visualized. LVEF is 50-55 Right Ventricle The right ventricle is normal size. The right ventricular systolic function is normal. Device lead is present in the right ventricle. Atria The left atrium size is normal. The right atrium size is normal. The interatrial septum is intact with no evidence for an atrial septal defect. Aortic Valve The aortic valve is normal in structure. Aortic valve is trileaflet. There is no aortic valvular stenosis. No aortic regurgitation is present. Mitral Valve The mitral valve is normal in structure. No evidence of mitral valve stenosis. mild mitral regurgitation. Tricuspid Valve The tricuspid valve is normal in structure. There is no tricuspid valve stenosis. Trace tricuspid regurgitation. Pulmonic Valve The pulmonary valve is normal in structure. There is no pulmonic valvular stenosis. There is no pulmonic valvular regurgitation. Great Vessels The aortic root is normal in size. The ascending aorta is mildly to moderately dilated. IVC is normal in size and collapses >50% with inspiration. Pericardium There is no pericardial effusion. 2D Dimensions IVSD d PLAX 0.94 cm M: 0.6-1.2 Ao Root d 2.84 cm M: 3.1 - 3.7 LVPW d PLAX 0.89 cm M: 0.6 - 1.2 Ao Asc Diam d 3.81 cm M: 2.6 - 3.4 LVID d PLAX 5.70 cm M: 4.2 - 5.8 LVDs 4.28 cm M: 2.5 - 4.0 LV EF Teichholz 48.5 % FS 24.80 % LV EDV (Teich) 159.9 mL LV ESV (Teich) 82.3 mL Stroke Vol Index (Teich) 35.24 M-Mode TAPSE 2.07 cm (M/F) >1.7 Auto EF LV EDV A4C 176.9 mL LV EDV A2C 174.0 mL LV EDV BP 175.1 mL LV ESV A4C 97.5 mL LV ESV A2C 95.5 mL LV ESV BP 96.6 mL LVEF(%) A4C 44.9 % LVEF(%) A2C 45.1 % LVEF(%) BP 44.9 % LV SV A4C 79.4 ml LV SV A2C 78.5 ml LV SV BP 78.6 ml LV CO A4C 7.3 L/min LV CO A2C 7.0 L/min LV CO BP 7.2 L/min HR A4C 92.31 BPM HR A2C 89.34 BPM LV EDV Index (BP) LA Volume LA Length A4C 5.5 cm LA Length A2C 5.1 cm LA Area A4C s 15.42 cm2 LA Area A2C s 13.48 cm2 LA Vol A4C A-L 36.78 mL LA Vol A2C A-L 30.18 mL LA Vol Biplane A-L 34.5 mL LA Vol/BSA A4C A-L LA Vol/BSA A2C A-L LA Vol/BSA BP A-L 15.7 mL/m2 LA Vol A4C MOD 36.8 mL LA Vol A2C MOD 28.8 mL LA Vol BP MOD 33.5 mL RA Volume RA Area A4C 8.5 cm2 RA ESV A4C (A-L) 15.6mL RA Vol/BSA A4C A-L RA Length A4C 4.0 cm RA ESV A4C (MOD) 14.6mL LV Diastology MV E' medial 0.061 (>0.07 m/s) MV E Vmax 1.03 (0.4-1.3 m/s) MV E/E' MED 16.75 (<14) MV A Vmax 1.35 (0.4-1.3 m/s) MV E' lateral 0.075 (>0.1 m/s) E/A Ratio 0.8 MV E/E' LAT 13.66 (<14) MV E' Average 0.068 m/s MV E/E'(average) 15.05 Aortic Valve AoV Vmax 1.53 m/s LVOT Vmax 1.05 m/s AoV Peak Grad 9.3 mmHg LVOT Peak Grad 4.4 mmHg AoV Area (Vmax) 2.10 cm2 LVOT VTI 0.205 m AoV VTI 0.301 m LVOT Mean Grad 3.0 mmHg AoV Mean José Luis. 1.03 m/s LVOT SV 62.56 mL AoV Mean Grad 4.8 mmHg LVOT Diam s 1.95 cm AoV Area (VTI) 2.08 cm2 AV Regurg Peak Gr. 9.31 mmHg Velocity Ratio 0.69 Mitral Valve MV DT 160 (160-240 msec) Pulmonary Valve PV Vmax 1.05 (0.5-1.5 m/s) RVOT Vmax 0.71 m/s PV Peak Grad 4.4 mmHg RVOT Peak Gr. 2.0 mmHg PV Mean José Luis 0.75 m/s RVOT VTI 0.137 m PV Mean Grad 2.5 mmHg RVOT Mean Gr. 1.2 mmHg
--- NOTE | 2024-12-07 16:06 | W.PM.DS.N ---
Date of service: 12/07/24 Time of Service: 16:06 DS: Diagnosis Discharge Diagnosis (1) Acute respiratory failure with hypoxia and hypercapnia: Status: Acute (2) Acute exacerbation of chronic obstructive pulmonary disease (COPD): Status: Acute (3) Metabolic encephalopathy: Status: Acute (4) DM type 2 (diabetes mellitus, type 2): Status: Acute (5) Elevated troponin: Status: Acute (6) CHF with cardiomyopathy: Status: Acute (7) Paroxysmal A-fib: Status: Acute (8) ICD (implantable cardioverter-defibrillator) in place: Status: Acute (9) ASCVD (arteriosclerotic cardiovascular disease): Status: Acute (10) Hyperlipidemia: Status: Acute (11) HTN (hypertension) with goal to be determined: Status: Acute Discharge Plan Disposition Patient Disposition: Home Condition: Improving Discharge Details Reason For Visit: Acute hypoxic and hypercapnic respiratory failure Admit Date/Time: 12/04/24 15:20 Admit Provider: Aris Guevara Attending Provider: Aris Guevara Primary Care Provider: Jc Morales [facility] Course Hospital Course: This 69 years old male patient with a past medical history of COPD, IDDM, hypertension, coronary artery disease status post stent placement, HFrEF last known EF 17% March 2023 with ICD placement, A-fib on [facility] and AAA who presented the emergency department on 12/04/24 concerns for altered mental status by his . Work-up in the ED new oxygen requirement, pH of 7.25, with a pCO2 of 75 and a bicarb of 33 , type II ischemia in the setting of elevated and flat troponins w/o EKG changes resulted in admission for encephalopathy inthe setting of acute hypoxic hypercapnic respiratory failure most likely secondary to COPD exacerbation. The patient was treated with steroids, nebulizer treatments.The patient was placed on BiPAP and his work of breathing improved. Oxygen requirement returned to baseline at room air, and the patient remained hemodynamically stable . Echocardiogram was updated and report was pending at the time of discharge. The patient will be discharge home with follow-up with his primary care within 7 days of discharge. Scripts sent to pharmacy. Recommendation for PCP follow-up: Follow-up on echocardiogram report Trazodone held during stay- reordered a half the dose Melatonin added for insomnia Consider discussion for cardiology and pulmonology referrals Discussed with Dr. Brown Home Meds and New Rx's Prescriptions: New prednisone 20 mg Tablet 40 mg PO DAILY Qty: 4 0RF melatonin 3 mg capsule 3 mg PO HS PRNQty: 30 0RF Continued [id number] 500-416.6-20 mg tablet 1 tab PO DAILY Patient Comments: 04/16/23 per pcp take 2 daily RH sildenafil 100 mg tablet 100 mg PO DAILY PRN Rx Instructions: administer 30 minutes to 4 hours before activity metformin 500 mg tablet 500 mg PO BID tamsulosin 0.4 mg capsule 0.8 mg PO QHS Ozempic 2 mg/dose (8 mg/3 mL) pen injector 2 mg subcut QWEEK amiodarone 200 mg tablet 200 mg PO DAILY apixaban 5 mg tablet 5 mg PO BID clopidogrel 75 mg tablet 75 mg PO DAILY empagliflozin 10 mg tablet 10 mg PO DAILY furosemide 40 mg tablet 40 mg PO DAILY pantoprazole 40 mg tablet,delayed release (DR/EC) 40 mg PO DAILY rosuvastatin 40 mg tablet 40 mg PO DAILY spironolactone 25 mg tablet 25 mg PO DAILY albuterol sulfate 90 mcg/actuation aerosol powdr breath activated 2 inh inhalation Q6H PRN sacubitril-valsartan [Entresto] 24-26 mg tablet 1 tab PO BID fluticasone propion-salmeterol 250-50 mcg/dose blister with device 1 inh inhalation BID gabapentin 100 mg capsule 100 mg PO DAILY Jardiance 10 mg tablet 10 mg PO DAILY loratadine 10 mg tablet 10 mg PO DAILY magnesium chloride 64 mg tablet extended release 64 mg PO DAILY metformin 500 mg tablet 500 mg PO DAILY nitroglycerin 0.4 mg tablet, sublingual 0.4 mg sublingual Q5M PRN Rx Instructions: do not exceed 3 doses per episode omeprazole 20 mg capsule,delayed release(DR/EC) 20 mg PO DAILY Ozempic 2 mg/dose (8 mg/3 mL) pen injector 2 mg subcut QWEEK Stiolto Respimat 2.5-2.5 mcg/actuation mist 2 puff inhalation DAILY metoprolol succinate [Toprol XL] 100 mg tablet extended release 24 hr 200 mg PO DAILY Changed trazodone 50 mg tablet 25 mg PO DAILY Qty: 0 0RF Discharge Instructions Referrals: Jc Morales DO [Primary Care Provider, Medicine] Referral Note: Follow-up within 7 days of discharge please Activity:: Activity as Tolerated Equipment/Supplies:: No Equipment Needed Diet:: heart healthy diabetic DS: Summary Time Spent with Patient providing and/or coordinating discharge services: Greater than 30 minutes Status at Discharge Functional status at discharge: independent ambulation Overall status at discharge: patient is progressing back to baseline Mental Status: mental status grossly normal Speech and Movement: speech and movement normal Mood: congruent mood Affect: normal affect Quality:SDOH Health Related Social Needs: Health related social needs lonely/isolated Health related social needs details Pt not requesting help at this time. Health related social needs details: Pt not requesting help at this time. Exam Narrative Exam Narrative: 69 years old male appearing older than stated age sitting in chair in no acute distress, awake, alert, oriented X4 , On room air heart S1, S2 regular , Clear lungs, scattered ronchi clearing with cough abdomen obese, soft, non-distended, soft and non-tender, no CVA tenderness Psych Mental Status: mental status grossly normal Speech and Movement: speech and movement normal Mood: congruent mood Affect: normal affect DS: Data Vitals/I&O Vitals and I&O: Vital Signs Temperature 37.4 C 12/07/24 15:37 Temperature Source Temporal Artery Scan 12/07/24 15:37 Pulse 97 H 12/07/24 15:37 Pulse 94 H 12/06/24 20:00 Respiratory Rate 15 12/07/24 15:37 Respiratory Effort Short of Breath 12/04/24 15:44 Respiratory Depth Normal 12/04/24 15:44 Respiratory Pattern Normal 12/04/24 15:44 Blood Pressure 137/67 12/07/24 15:37 Blood Pressure Mean 90 12/07/24 15:37 Blood Pressure Position Sitting 12/04/24 12:59 Pulse Oximetry 93 12/07/24 15:37 Oxygen Delivery Method Room Air 12/07/24 15:37 Oxygen Flow Rate 0 12/07/24 15:37 Fraction of Inspired Oxygen (FIO2) 30 12/07/24 08:07 Pain Level 0 12/07/24 05:42 Comment VS taken after exertion; pT ambulated from ICU to NC rm 226 12/06/24 15:43 Intake & Output 06/15/25 06/16/25 06/16/25 23:59 11:59 23:59 Intake Total 600 / 955 Output Total 2700 / 4375 1500 / 1900 400 / 1900 Balance -2100 / -3420 -1500 / -1900 -400 / -1900 Intake: Oral 600 / 850 Output: Urine 2700 / 4375 1500 / 1900 400 / 1900 Other: Urine Color Yellow Yellow Yellow Urine Appearance Clear Clear Clear Urine Odor None Strong Comment lightly cloudy Data Completed and Pending Labs on day of discharge: Labs from last 24 hours 12/07/24 05:46 WBC 6.28 RBC 4.26 L Hgb 12.0 L Hct 40.7 MCV 96 H MCH 28.2 MCHC 29.5 L RDW 15.8 H Plt Count 185 MPV 8.8 Immature Gran % 0.3 Neutrophils % 69.8 Lymphocytes % 18.8 Monocytes % 9.9 Eosinophils % 1.0 Basophils % 0.2 Nucleated RBC % 0.0 Absolute Neutrophils 4.39 Absolute Lymphocytes 1.18 L Absolute Monocytes 0.62 Absolute Eosinophils 0.06 Absolute Basophils 0.01 Sodium 144 Potassium 3.7 Chloride 105 Carbon Dioxide 37.8 H Anion Gap 1.2 L BUN 18 Creatinine 0.8 Est GFR (CKD-EPI 2020) 95.21 Glucose 107 H Calcium 8.5 Total Bilirubin 0.3 AST 18 ALT 29 Alkaline Phosphatase 78 Troponin I 190 H* Total Protein 6.2 L Albumin 2.7 L PFSH All Active Problems (Updated 12/04/24 @ 15:49 by Sina Akhtar MD) Metabolic encephalopathy (Acute) Altered mental status (Acute) Elevated troponin (Acute) Acute respiratory failure with hypoxia and hypercarbia (Acute) Elevated troponin (Acute) Acute exacerbation of chronic obstructive pulmonary disease (COPD) (Acute) Acute respiratory failure with hypoxia and hypercapnia (Acute) Restless leg syndrome (Acute) Presence of cardiac defibrillator (Acute) Overweight (Acute) NSTEMI (non-ST elevated myocardial infarction) (Acute) Insomnia (Acute) Hypertensive disorder (Chronic) DM type 2 (diabetes mellitus, type 2) (Acute) COPD with chronic bronchitis (Acute) Chronic GERD (Acute) CHF with cardiomyopathy (Acute) Bilateral cataracts (Acute) Atrial flutter (Acute) Atherosclerotic coronary vascular disease (Acute) Paroxysmal A-fib (Acute) ICD (implantable cardioverter-defibrillator) in place (Acute) Medtronic cobalt placed [place] [facility] [place] (HFpEF) heart failure with preserved ejection fraction (Acute) 04/15 EF 17% per [facility] RH ASCVD (arteriosclerotic cardiovascular disease) (Acute) Known LAD stenosis s/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 [facility], PCI to LAD RH Acid reflux (Chronic) COPD (chronic obstructive pulmonary disease) (Chronic) Hyperlipidemia (Acute) Diabetes mellitus (Chronic) HTN (hypertension) with goal to be determined (Acute) Medical History BPH (benign prostatic hyperplasia) Social History Smoking/Tobacco Use Status: Former Tobacco Use Smoking risk assessment performed?: Yes Housing: homeless Time Spent with Patient Time Spent with Patient: >85 minutes Time was spent: preparing to see the patient(eg.review tests), obtaining and/or reviewing separately otained hiistory, ordering medications,tests, procedures, referring, communicating with other health managed care manager, indepentently interpreting results, counseling the patient and care coordination
--- NOTE | 2024-12-07 16:50 | RESPIRATORY ---
RT walked in hallway with patient. Patient walked at a steady and somewhat fast pace and was able to hold conversation while completing aprx 3 full loops around the M/S unit. RT monitored pt's SpO2 with both a portable pulse oximeter as well as patient's tele monitor. Between the two, the patient remained in good SpO2 range for duration of walk while on room air the entire time.
== END 2024-12-07 19:05 | disposition home or self-care (01) | DRG 190 ==
LOC: ER 15:30 → ICU 16:15 → MS 12-06 15:35
PROVIDERS: Family Medicine; Internal Medicine; Admitting Provider Hospitalist; Emergency Provider Student in an Organized Health Care Education/Training Program; PCP Specialist/Technologist Athletic Trainer; Responsible Provider Nurse Practitioner Acute Care; Visit Provider Hospitalist
DX: J44.1 Chronic obstructive pulmonary disease with (acute) exacerbation (principal); G93.41 Metabolic encephalopathy; J96.01 Acute respiratory failure with hypoxia; J96.02 Acute respiratory failure with hypercapnia; I42.9 Cardiomyopathy, unspecified; I24.89 Other forms of acute ischemic heart disease; I50.22 Chronic systolic (congestive) heart failure; I48.92 Unspecified atrial flutter; E11.9 Type 2 diabetes mellitus without complications; I48.0 Paroxysmal atrial fibrillation; Z95.810 Presence of automatic (implantable) cardiac defibrillator; I25.10 Atherosclerotic heart disease of native coronary artery without angina pectoris; I11.0 Hypertensive heart disease with heart failure; E78.5 Hyperlipidemia, unspecified; Z79.85 Long-term (current) use of injectable non-insulin antidiabetic drugs; Z79.84 Long term (current) use of oral hypoglycemic drugs; Z95.5 Presence of coronary angioplasty implant and graft; Z79.01 Long term (current) use of anticoagulants; I71.40 Abdominal aortic aneurysm, without rupture, unspecified; G25.81 Restless legs syndrome; I25.2 Old myocardial infarction; K21.9 Gastro-esophageal reflux disease without esophagitis
CPT/HCPCS: 00123; 36415; 80048; 80053; 82805; 85027; 93005; 93306; 94640; 94761; 96365; 96375; 97161; 97530; 99291; 70450; 71045; 80299; 81003; 81015; 83735; 83880; 84484; 85025; 93010; 94660; 94664; 94760; 99223; 99232; 99233; 99239; J1815; J2060; J2359; J2919; J3411; J7512; J7613; J7620

== ENCOUNTER → 2025-01-06 13:08 | Outpatient (BNVA) | payer MEDICARE, SELFPAY | PROVIDERS: PCP Specialist/Technologist Athletic Trainer; Visit Provider Student in an Organized Health Care Education/Training Program | DX: I48.0 Paroxysmal atrial fibrillation (principal); J44.9 Chronic obstructive pulmonary disease, unspecified; E11.59 Type 2 diabetes mellitus with other circulatory complications; I10 Essential (primary) hypertension; Z45.018 Encounter for adjustment and management of other part of cardiac pacemaker; Z79.01 Long term (current) use of anticoagulants | CPT/HCPCS: 93282 ==

== ENCOUNTER 2025-02-09 11:50 | Inpatient (IN) | payer MEDICARE, MEDICAID, SELFPAY ==
[2025-02-09] VITALS (87 sets, daily range): BP systolic 60–149; BP diastolic 34–71; PULSE 99–124; RESP 14–31; TEMP 36.4–36.9; O2SAT 86–96
[2025-02-09] MEDS: Omnipaque 350 MG/ML 100 ML BTL IJ (12:41)
[2025-02-09] MEDS: Normal Saline - Diluent 50 ML VIAL IJ (12:42)
[2025-02-09] MEDS: Normal Saline Flush 10 ML SYR IVP (12:42)
[2025-02-09 12:45] LABS: ALT 35 U/L (16-63); AST 28 U/L (15-37); Albumin 3.1 g/dL (3.4-5.0); Alkaline Phosphatase 96 U/L (46-116); Anion Gap 6.0 mmol/L (3-11); BUN 26 mg/dL (7-18); Bilirubin, Direct 0.2 mg/dL (0.0-0.2); Bilirubin, Total 0.4 mg/dL (0.2-1.0); CO2 34.0 mmol/L (21.0-32.0); Calcium 9.1 mg/dL (8.5-10.1); Chloride 98 mmol/L (98-107); Estimated GFR 49.47 (mL/min/1.73m2); Glucose 141 mg/dL (74-106); Lipase 23 U/L (<78); Magnesium 2.1 mg/dL (1.8-2.4); Potassium 4.2 mmol/L (3.5-5.1); Sodium 138 mmol/L (136-145); Total Protein 7.7 g/dL (6.4-8.2)
--- NOTE | 2025-02-09 12:50 | DI.CT_ITS ---
Exam(s) CT ABDOMEN PELVIS CTA EXAM: CT ABDOMEN PELVIS CTA CLINICAL HISTORY: GI bleed protocol- hematochezia. TECHNIQUE: Imaging Protocol: Axial computed tomography images with coronal and sagittal reformatted images were created and reviewed CONTRAST MATERIAL: Intravenous: Omnipaque 350 Contrast volume:100 ml Oral: None COMPARISON: CT CT CTA ABD/PELV W/AND/OR WO CON from 12/02/2024 FINDINGS: ABDOMEN: AORTA: Abdominal aorta is again noted be atherosclerotic and there is a fusiform infrarenal abdominal aortic aneurysm with maximum diameter 2.8 cm, similar to the prior outside CT scan of 12/02/2024. There is no significant aneurysmal dilatation of the iliac arteries. The inferior mesenteric artery is patent. The superior mesenteric artery is patent. However, there is significant narrowing of the origin of this celiac artery again noted.There is moderate atherosclerotic disease at the origin of both renal arteries. Both kidneys exhibit normal size. GI: There is no in intraluminal extravasation of injected IV contrast to identify a culprit bleeding site. However, the appearance of the colon is significantly different than on the CT study of 2 months ago (outside institution 12/02/2024). The colon is now devoid of fecal material and collapsed and exhibits a gibbons colitis appearance. This, however, may be exaggerated by a the colon being empty of fecal material. There is no significant diverticular disease in the colon and sigmoid. Small bowel including terminal ileum appears unremarkable. Also no evidence of appendicitis. There is no ascites. LIVER: Liver is hypodense implying steatosis. There no discrete focal hepatic lesions evident. GALLBLADDER/BILIARY: No obvious gallbladder pathology. CBD is not dilated. PANCREAS: Pancreatic head is partially obscured by a duodenal diverticulum at this level. There is no obvious pancreatic mass nor dilatation of the pancreatic duct. No peripancreatic fluid nor streaking. SPLEEN: Spleen is not enlarged. There are no intrasplenic lesions. Splenic and portal veins are patent. ADRENALS: There are no significant adrenal masses. KIDNEYS: Tiny benign cysts noted in the inferior pole of the left kidney. Does not require further workup. No calculi nor hydronephrosis. No solid renal masses. LYMPH NODES: There is no retroperitoneal nor para-aortic adenopathy. No obvious mesenteric masses. ABDOMINAL WALL: Fat only containing small umbilical hernia, unchanged from previous.. PELVIS: LYMPH NODES: There is no intrapelvic nor inguinal adenopathy. GI: No evidence of appendicitis.No evidence of sigmoid diverticular disease. URINARY BLADDER: No calculi nor masses evident REPRODUCTIVE: Moderately enlarged prostate gland. Measures 5.7 cm wide. Contains some calcifications. Seminal vesicles appear unremarkable. OSSEOUS: No significant osseous lesions. No fractures. IMPRESSION: 1. No acute active bleeding site demonstrated on this triple phase study 2. The appearance of the colon is either diffuse fat halo sign (such as is often seen with chronic inflammatory bowel disease) vs colitis. There is no evidence of bowel obstruction. No evidence of diverticulitis nor appendicitis. 3. Other findings as above. Called by myself to ER provider 02/09/2025 at 1:18 p.m. RADIATION DOSE DELIVERED: 2,657.68mGy.cm Total DLP DATA REPOSITORY: All CT scans at this facility are submitted to the National Radiology Data Registry (NRDR) Dose Index Registry (DIR) with the [employer] (ACR). RADIATION OPTIMIZATION: All CT scans at this facility use at least one of these dose optimization techniques: automated exposure control; mA and/or kV adjustment per patient size (includes targeted exams where dose is matched to clinical indication); or iterative reconstruction.
[2025-02-09 12:53] LABS: Abs Immature Grans 0.01 10^3/uL (0.0-0.06); HCT 40.8 % (40.0-50.0); HGB 12.6 g/dL (13.5-17.5); MCH 28.1 pg (27.0-33.0); MCHC 30.9 % (32.0-36.0); MCV 91 fL (80-95); MPV 8.4 fL (8.0-11.0); Platelet Count 167 10^3/uL (130-400); RBC 4.49 10^6/uL (4.36-5.78); RDW 16.2 % (11.8-14.1); RDW-SD 54.6 fL; WBC 5.00 10^3/uL (4.4-10.8)
[2025-02-09 13:17] LABS: INR 1.2 (0.9-1.1); PTT Activated 30.2 sec (20.6-30.2); Prothrombin Time 11.7 sec (9.1-11.1)
[2025-02-09 13:19] LABS: Immature Grans % 0.0 %
[2025-02-09 13:20] LABS: RBC Morphology Normal
--- NOTE | 2025-02-09 13:26 | W.ED.GENAD ---
Discharge Plan Discharge Details Chief Complaint: GI Bleed Admit Date/Time: 02/09/25 15:55 Admit Provider: Aris Guevara Attending Provider: Aris Guevara Primary Care Provider: Jc Morales ED Provider: Fritz Tran Discharge Data Discharge Date/Time-TO BE ENTERED AT DEPARTURE: 02/09/25 18:01 HPI General Date/Time Provider Initiated Documentation: 02/09/25 12:05. HPI Narrative: 70 year-old male presents to ED today by POV/ambulating with his with a chief complaint of diarrhea yesterday, now having significant amounts of bloody stool starting at 0400 this morning, with incontinence which is not his baseline. Quality described as no abdominal pain- feels weak and fatigued, some chills, no radiation to bright red blood, black diarrhea, vomiting, severe abdominal pain, shortness of breath, sweating, chest pain. Severity is described as unable to quantify, mild discomfort abdomen if any. Palliating factors include nothing specific attempted. Provoking factors include nothing specific. Events leading up to the incident/Associated Symptoms: Patient has never had a colonoscopy. Patient is anticoagulated on Eliquis, and has Plavix, has significant medical comorbidities. Related Data Home Medications ?Medication ?Instructions ?Recorded ?Confirmed glucosamine 500 [id number]-[id number] 1 tab PO DAILY 04/16/23 02/09/25 no1 416.6 mg-C 20 [id number] tablet metformin 500 mg tablet 500 mg PO BID 04/16/23 02/09/25 semaglutide 2 mg/dose (8 mg/3 mL) 2 mg subcut QWEEK 04/16/23 02/09/25 subcutaneous pen injector (Ozempic) sildenafil 100 mg tablet 100 mg PO DAILY PRN 04/16/23 02/09/25 tamsulosin 0.4 mg capsule 0.8 mg PO QHS 04/16/23 02/09/25 amiodarone 200 mg tablet 200 mg PO DAILY 04/22/23 02/09/25 apixaban 5 mg tablet 5 mg PO BID 04/22/23 02/09/25 clopidogrel 75 mg tablet 75 mg PO DAILY 04/22/23 02/09/25 empagliflozin 10 mg tablet 10 mg PO DAILY 04/22/23 02/09/25 furosemide 40 mg tablet 40 mg PO DAILY 04/22/23 02/09/25 pantoprazole 40 mg tablet,delayed 40 mg PO DAILY 04/22/23 02/09/25 release rosuvastatin 40 mg tablet 40 mg PO DAILY 04/22/23 02/09/25 albuterol sulfate 90 mcg/actuation 2 inh inhalation Q6H PRN 07/06/24 02/09/25 breath activated powder inhaler gabapentin 100 mg capsule 100 mg PO DAILY 07/06/24 02/09/25 magnesium chloride 64 mg 64 mg PO DAILY 07/06/24 02/09/25 tablet,extended release nitroglycerin 0.4 mg sublingual 0.4 mg sublingual Q5M PRN 07/06/24 02/09/25 tablet omeprazole 20 mg capsule,delayed 20 mg PO DAILY 07/06/24 02/09/25 release spironolactone 25 mg tablet 25 mg PO DAILY 07/06/24 02/09/25 tiotropium 2.5 mcg-olodaterol 2.5 2 puff inhalation DAILY 07/06/24 02/09/25 mcg/actuation mist for inhalation (Stiolto Respimat) metoprolol succinate 100 mg 200 mg PO DAILY 12/04/24 02/09/25 tablet,extended release 24 hr (Toprol XL) melatonin 3 mg capsule 3 mg PO HS PRN #30 caps 12/07/24 02/09/25 fluticasone 100 mcg-salmeterol 50 2 inh inhalation BID 01/06/25 02/09/25 mcg/dose blistr powdr for inhalation (Advair Diskus) fluticasone 500 mcg-salmeterol 50 1 inh inhalation DAILY 01/06/25 02/09/25 mcg/dose blistr powdr for inhalation meloxicam 15 mg tablet 15 mg PO QHS 01/06/25 02/09/25 sacubitril 49 mg-valsartan 51 mg 1 tab PO BID 01/06/25 02/09/25 tablet (Entresto) albuterol sulfate 90 mcg/actuation 2 inh inhalation Q6H PRN 02/09/25 02/09/25 aerosol inhaler fluticasone propionate 230 2 puff inhalation BID 02/09/25 02/09/25 mcg-salmeterol 21 mcg/actuation HFA inhaler (Advair HFA) metformin 500 mg tablet,extended 1,500 mg PO DAILY 02/09/25 02/09/25 release 24 hr trazodone 50 mg tablet 50 mg PO DAILY 02/09/25 02/09/25 Previous Rx's ?Medication ?Instructions ?Recorded melatonin 3 mg capsule 3 mg PO HS PRN #30 caps 12/07/24 Allergies Allergy/AdvReac Type Severity Reaction Status Date / Time Penicillins AdvReac Skin Rash Verified 02/09/25 13:34 General Stated Complaint: GI Bleed ROD: 2 Review of Systems All systems reviewed & are unremarkable except as noted in HPI and below Exam Narrative Exam Narrative: GENERAL APPEARANCE: Well-nourished, non-toxic, awake and alert, atraumatic, moderate acute distress. SKIN: Warm, pink, dry, intact, without rashes/lesions/ulcerations. HEAD: Normocephalic, atraumatic, normal hair distribution for gender/age. EYES: Normal conjunctiva, no exudates on lids/lashes. ENT: Nares patent, no circumoral cyanosis, no facial swelling NECK: Supple, trachea midline, painless cervical ROM. LUNGS/CHEST: Lungs CTA bilaterally- no rhonchi/rales/wheezes diffusely, non-labored respirations, normal A/P diameter, symmetrical expansion, no chest wall deformity HEART (CV/PV): Regular rate and rhythm without murmur, no peripheral edema, + JVD. ABDOMEN: Normoactive bowel sounds, soft, non-distended, no guarding, no tenderness, maroon blood in rectal vault on SOHAIL without other palpable abnormality. MSK: Normal ROM, no swelling/deformity to bilateral UEs or LEs, moving all extremities without weakness, no cyanosis, spine midline without tenderness, normal curvature. NEURO: Mental Status AAOx4 - alert to person, place, time, events No facial droop, no forehead involvement. Motor: No focal weakness - strength 5/5 in bilateral UEs and LEs, proximal and distal, symmetric. Sensory: sensation intact to light touch globally. Gait normal: patient ambulated without ataxia into ED room. PSYCH: euthymic, cooperative, pleasant, appropriate speech Course Vital Signs Vital signs: Vital Signs Temperature 36.4 C L 02/09/25 11:55 Pulse 124 H 02/09/25 11:55 Respiratory Rate 18 02/09/25 11:55 Blood Pressure 105/64 02/09/25 11:55 Pulse Oximetry 90 L 02/09/25 11:55 Temperature 36.4 C L 02/09/25 11:55 Pulse 124 H 02/09/25 11:55 Respiratory Rate 18 02/09/25 11:55 Blood Pressure 105/64 02/09/25 11:55 Blood Pressure Position Sitting 02/09/25 11:55 Pulse Oximetry 90 L 02/09/25 11:55 Oxygen Delivery Method Room Air 02/09/25 11:55 Oxygen Flow Rate 0 02/09/25 11:55 Pain Level 4 02/09/25 11:55 Lab/Test Results Lab/Test Results: Laboratory Tests Range/Units 02/09/25 12:13 PT Cancelled INR Cancelled APTT Cancelled VBG Lactate (<or=2.0) mmol/L 1.4 Sodium (136-145) mmol/L 138 Potassium (3.5-5.1) mmol/L 4.2 Chloride (98-107) mmol/L 98 Carbon Dioxide (21.0-32.0) mmol/L 34.0 H Anion Gap (3-11) mmol/L 6.0 BUN (7-18) mg/dL 26 H Creatinine (0.70-1.30) mg/dL 1.5 H Est GFR (CKD-EPI 2020) (mL/min/1.73m2) 49.47 Glucose (74-106) mg/dL 141 H Calcium (8.5-10.1) mg/dL 9.1 Magnesium (1.8-2.4) mg/dL 2.1 Total Bilirubin (0.2-1.0) mg/dL 0.4 Conjugated Bilirubin (0.0-0.2) mg/dL 0.2 AST (15-37) U/L 28 ALT (16-63) U/L 35 Alkaline Phosphatase (46-116) U/L 96 Total Protein (6.4-8.2) g/dL 7.7 Albumin (3.4-5.0) g/dL 3.1 L Lipase (<78) U/L 23 ABO/Rh O Negative Antibody Screen NEGATIVE Medical Decision Making This dictation utilizes [id number] dictation software and may contain unedited grammatical errors. 70 year-old male presents to ED today by POV/ambulating with his with a chief complaint of diarrhea yesterday, now having significant amounts of bloody stool starting at 0400 this morning, with incontinence which is not his baseline. Quality described as no abdominal pain- feels weak and fatigued, some chills, no radiation to bright red blood, black diarrhea, vomiting, severe abdominal pain, shortness of breath, sweating, chest pain. Severity is described as unable to quantify, mild discomfort abdomen if any. Palliating factors include nothing specific attempted. Provoking factors include nothing specific. Events leading up to the incident/Associated Symptoms: Patient has never had a colonoscopy. Patient is anticoagulated on Eliquis, and has Plavix, has significant medical comorbidities. Patients' medical history: COPD, respiratory failure, presence of cardiac defibrillator, NSTEMI, T2DM, CHF with normal EF and cardiomyopathy, atrial flutter, paroxysmal A-fib, hyperlipidemia, hypertension. Family and social history: Lives at home with his , eats normal diet, does not exercise. Pertinent exam findings / vital signs include hypoxic to 88 to 89% on arrival states this is his baseline, tachycardic in the 120s, no abdominal tenderness, maroon blood on SOHAIL, becoming hypotensive after toileting and having further bloody stool. Differential / pathologies of concern include GI bleeding, colitis, IBD, hypotension, shock. Diagnostic studies of: - CBC, BMP, PT/PTT, lactate, liver panel, lipase, type and screen, magnesium, CTA of the abdomen and pelvis. - CBC shows hemoglobin of 12.6 with platelets 167, hematocrit 40.8-will repeat short interval - BMP is fairly unremarkable with baseline elevation of creatinine - Lipase negative - Lactate negative - Liver panel unremarkable - Coagulation studies unremarkable - Type and screen shows O- with negative antibody screen - CTA of the abdomen and pelvis shows no extravasation, shows possible fat halo sign of IBD versus colitis Interventions of: - Around 1415 the patient became hypotensive reaching 73/47 after toileting and having further maroon bloody liquid stool, consulted with general surgery recommends admission and agrees with plan for serial hemoglobins for decision regarding timing of colonoscopy. Discussed with [employer]ER on-call at 1420 in regards to his comorbidities and the feasibility of possible general anesthesia if the patient becomes unstable and needs emergent colonoscopy. Spoke with hospitalist Dr. Guevara @ [id number] - admits to ICU, updated Dr. Akers of surgery that patient may need short interval follow-up for colonoscopy decision. ED Course/Assessment/Plan: 70-year-old male presents with acute bloody stool after a bout of diarrhea yesterday, CT shows possible colitis pattern with underdistended colon, there is maroon blood in the rectal vault on SOHAIL, the patient presented tachycardic without change in his heart rate he began to experience hypotension after having a bloody bowel movement here in the department, he was started on norepinephrine with good improvement of his blood pressure and was given 1 unit of packed red blood cells, consulted with surgery for timing of possible colonoscopy, the patient will be admitted to ICU and consulted on by general surgeon, RO[employer] CLEANER has consulted on the patient in the are able to sedate him if needed despite his comorbidities, he had a normal EF had an echocardiogram in November. Patient reported that he felt fine just mildly fatigued throughout the entirety of ED visit today. Disposition of Acute GI Bleeding. Patient verbalized understanding of the plan and return to ED criteria and engaged in shared decision making. Medical Records Medical records reviewed: Yes I reviewed the patient's medical records. Medical records narrative: ECHO here on 12/07/24 shows normal EF. Imaging Data Radiologic Study: Attestation: I personally reviewed and interpreted this imaging study as follows: Imaging: CT Scan Radiologist's impression: EXAM: CT ABDOMEN PELVIS CTA CLINICAL HISTORY: GI bleed protocol- hematochezia. TECHNIQUE: Imaging Protocol: Axial computed tomography images with coronal and sagittal reformatted images were created and reviewed CONTRAST MATERIAL: Intravenous: Omnipaque 350 Contrast volume:100 ml Oral: None COMPARISON: CT CT CTA ABD/PELV W/AND/OR WO CON from 12/02/2024 FINDINGS: ABDOMEN: AORTA: Abdominal aorta is again noted be atherosclerotic and there is a fusiform infrarenal abdominal aortic aneurysm with maximum diameter 2.8 cm, similar to the prior outside CT scan of 12/02/2024. There is no significant aneurysmal dilatation of the iliac arteries. The inferior mesenteric artery is patent. The superior mesenteric artery is patent. However, there is significant narrowing of the origin of this celiac artery again noted.There is moderate atherosclerotic disease at the origin of both renal arteries. Both kidneys exhibit normal size. GI: There is no in intraluminal extravasation of injected IV contrast to identify a culprit bleeding site. However, the appearance of the colon is significantly different than on the CT study of 2 months ago (outside institution 12/02/2024). The colon is now devoid of fecal material and collapsed and exhibits a gibbons colitis appearance. This, however, may be exaggerated by a the colon being empty of fecal material. There is no significant diverticular disease in the colon and sigmoid. Small bowel including terminal ileum appears unremarkable. Also no evidence of appendicitis. There is no ascites. LIVER: Liver is hypodense implying steatosis. There no discrete focal hepatic lesions evident. GALLBLADDER/BILIARY: No obvious gallbladder pathology. CBD is not dilated. PANCREAS: Pancreatic head is partially obscured by a duodenal diverticulum at this level. There is no obvious pancreatic mass nor dilatation of the pancreatic duct. No peripancreatic fluid nor streaking. SPLEEN: Spleen is not enlarged. There are no intrasplenic lesions. Splenic and portal veins are patent. ADRENALS: There are no significant adrenal masses. KIDNEYS: Tiny benign cysts noted in the inferior pole of the left kidney. Does not require further workup. No calculi nor hydronephrosis. No solid renal masses. LYMPH NODES: There is no retroperitoneal nor para-aortic adenopathy. No obvious mesenteric masses. ABDOMINAL WALL: Fat only containing small umbilical hernia, unchanged from previous.. PELVIS: LYMPH NODES: There is no intrapelvic nor inguinal adenopathy. GI: No evidence of appendicitis.No evidence of sigmoid diverticular disease. URINARY BLADDER: No calculi nor masses evident REPRODUCTIVE: Moderately enlarged prostate gland. Measures 5.7 cm wide. Contains some calcifications. Seminal vesicles appear unremarkable. OSSEOUS: No significant osseous lesions. No fractures. IMPRESSION: 1. No acute active bleeding site demonstrated on this triple phase study 2. The appearance of the colon is either diffuse fat halo sign (such as is often seen with chronic inflammatory bowel disease) vs colitis. There is no evidence of bowel obstruction. No evidence of diverticulitis nor appendicitis. 3. Other findings as above. Called by myself to ER provider 02/09/2025 at 1:18 p.m. Lab Data Lab results reviewed: Yes I reviewed the patient's lab results. Labs: Laboratory Tests Range/Units 02/09/25 02/09/25 12:13 12:42 WBC (4.4-10.8) 10^3/uL 5.00 RBC (4.36-5.78) 10^6/uL 4.49 Hgb (13.5-17.5) g/dL 12.6 L Hct (40.0-50.0) % 40.8 MCV (80-95) fL 91 MCH (27.0-33.0) pg 28.1 MCHC (32.0-36.0) % 30.9 L RDW (11.8-14.1) % 16.2 H Plt Count (130-400) 10^3/uL 167 MPV (8.0-11.0) fL 8.4 Immature Gran % % 0.0 Neutrophils % % 62.0 Band Neutrophils % % 17 Lymphocytes % % 8.0 Monocytes % % 11.0 Eosinophils % % 2.0 Basophils % % 0.0 Nucleated RBC % (0.0-0.3) % 0.0 Absolute Neutrophils (1.2-6.7) 10^3/uL 3.95 Absolute Lymphocytes (1.2-3.4) 10^3/uL 0.40 L Absolute Monocytes (0.1-0.8) 10^3/uL 0.55 Absolute Eosinophils (0.0-0.7) 10^3/uL 0.10 Absolute Basophils (0.0-0.2) 10^3/uL 0.00 RBC Morphology Normal PT Cancelled 11.7 H INR Cancelled 1.2 H APTT Cancelled 30.2 VBG Lactate (<or=2.0) mmol/L 1.4 Sodium (136-145) mmol/L 138 Potassium (3.5-5.1) mmol/L 4.2 Chloride (98-107) mmol/L 98 Carbon Dioxide (21.0-32.0) mmol/L 34.0 H Anion Gap (3-11) mmol/L 6.0 BUN (7-18) mg/dL 26 H Creatinine (0.70-1.30) mg/dL 1.5 H Est GFR (CKD-EPI 2020) (mL/min/1.73m2) 49.47 Glucose (74-106) mg/dL 141 H Calcium (8.5-10.1) mg/dL 9.1 Magnesium (1.8-2.4) mg/dL 2.1 Total Bilirubin (0.2-1.0) mg/dL 0.4 Conjugated Bilirubin (0.0-0.2) mg/dL 0.2 AST (15-37) U/L 28 ALT (16-63) U/L 35 Alkaline Phosphatase (46-116) U/L 96 Total Protein (6.4-8.2) g/dL 7.7 Albumin (3.4-5.0) g/dL 3.1 L Lipase (<78) U/L 23 ABO/Rh O Negative Antibody Screen NEGATIVE Quality:SDOH Health Related Social Needs: Health related social needs lonely/isolated Health related social needs details Pt not requesting help at this time. Critical Care Time Critical Care Time Critical Care Time: Yes Total Critical Care Time: 30 Attestation: Upon my evaluation, this patient had a high probability of imminent or life-threatening deterioration due to GI bleeding, hypotension, intiation of vasopressors and blood transfusion emergently which required my direct attention, intervention, and personal management. I have personally provided 30 minutes of critical care time exclusive of time spent on separately billable procedures. Time includes review of laboratory data, radiology results, discussion with consultants, and monitoring for potential decompensation. Interventions were performed as documented above, including monitoring of critical vital signs, ordering critical medications from bedside, and re-assessing effectiveness, repeating critical exam findings, and reviewing patients' chart. PFSH All Active Problems (Updated 02/10/25 @ 08:59 by Ankur Akers DO) GIB (gastrointestinal bleeding) (Chronic) Altered mental status (Acute) Elevated troponin (Acute) Acute respiratory failure with hypoxia and hypercarbia (Acute) Restless leg syndrome (Acute) Presence of cardiac defibrillator (Acute) Overweight (Acute) NSTEMI (non-ST elevated myocardial infarction) (Acute) Insomnia (Acute) Hypertensive disorder (Chronic) COPD with chronic bronchitis (Acute) Bilateral cataracts (Acute) Atrial flutter (Acute) Atherosclerotic coronary vascular disease (Acute) Acid reflux (Chronic) Hyperlipidemia (Acute) Diabetes mellitus (Chronic) Medical History (Updated 02/10/25 @ 08:59 by Ankur Akers DO) HTN (hypertension) with goal to be determined Paroxysmal A-fib COPD (chronic obstructive pulmonary disease) DM type 2 (diabetes mellitus, type 2) ASCVD (arteriosclerotic cardiovascular disease) Known LAD stenosis s/p PCIx2 to SPLITTING MACHINE FEEDER RCA per [facility], PCI to LAD RH ICD (implantable cardioverter-defibrillator) in place Med[employer] cobalt placed at [facility] 04/15/23 CHF with cardiomyopathy (HFpEF) heart failure with preserved ejection fraction 04/15 EF 17% per [facility] RH Chronic GERD Elevated troponin Acute exacerbation of chronic obstructive pulmonary disease (COPD) Acute respiratory failure with hypoxia and hypercapnia BPH (benign prostatic hyperplasia) Social History Smoking/Tobacco Use Status: Former Tobacco Use Smoking risk assessment performed?: Yes Alcohol Intake: current Alcohol Intake frequency: 3 or more drinks per day Substance use type: does not use Housing: house [facility] Have you Been Recently Intoxicated or Drunk Within the Last 30 days?: No Have you Ever Experienced Previous Episodes of Alcohol Withdrawal?: No Have you ever Experienced Withdrawal Seizures?: No Have you ever Experienced Delirium Tremens(DT)s?: No Have you ever undergone Alcohol Rehabilitation Treatment (i.e, inpt ot outpatient treatment programs)?: No Have you ever Experienced Blackouts?: No Have you ever Combined Alcohol with other Downers within the last 90 days?: No Have you ever Combined Alcohol with any other Substance of Abuse during the last 90 days?: No Positive Blood Alcohol level on Presentation? [PCS.BAL]: No Evidence of Increased Autonomic Activity (i.e. HR>120, tremor, sweating, agitation, nausea)?: No Result: 0
[2025-02-09] MEDS: Albuterol/Ipratropium 3 ML UPD VIAL UPD (13:38)
[2025-02-09] MEDS: Normal Saline 500 ML IV (14:39)
[2025-02-09 14:43] LABS: HCT 40.0 % (40.0-50.0); HGB 12.3 g/dL (13.5-17.5)
[2025-02-09] MEDS: Norepinephrine in D5W 8 MG/250 ML BAG 7.5 MG IV (14:53)
--- NOTE | 2025-02-09 16:30 | W.PM.HP.N ---
Date of service: 02/09/25 Time of Service: 16:31 Assessment and Plan Assessment and plan (1) GIB (gastrointestinal bleeding): Status: Chronic Assessment and plan: Consult to general surgery placed will make n.p.o. As this does appear to be lower GI bleed and will see a role for Carafate or PPI drip. Will hold his Eliquis as well as his Plavix. Do not see a clear reason why the patient is on Plavix at this point. (2) Hyperlipidemia: Status: Acute Assessment and plan: Continue with statins when tolerating p.o. (3) HTN (hypertension) with goal to be determined: Status: Acute Assessment and plan: Patient is on multiple medications for hypertension including beta-donna ARB Aldactone. Restart these meds when tolerating p.o. (4) ASCVD (arteriosclerotic cardiovascular disease): Status: Acute Assessment and plan: Do not see any EKG been ordered in the ED will order it. (5) ICD (implantable cardioverter-defibrillator) in place: Status: Acute Assessment and plan: Noted. Notes from 01/06/2025 by cardiology has been reviewed. Pacemaker seems to be working appropriately. (6) Paroxysmal A-fib: Status: Acute Assessment and plan: Pending the results of his scope would recommend restarting his Eliquis to at least but will score is has-bleed prior to reinitiation Has-bled score is 3 which puts him at high risk. (7) DM type 2 (diabetes mellitus, type 2): Status: Acute Assessment and plan: Will continue with his outpatient regimen except for holding his metformin as his creatinine is 1.5. (8) Overweight: Status: Acute Assessment and plan: Consult dietary in the morning (9) COPD (chronic obstructive pulmonary disease): Status: Chronic Assessment and plan: Continue with his inhalers. History of Present Illness History of Present Illness Chief Complaint: GIB Narrative: This is a 70-year-old gentleman who last hospital admission was in November of this year for encephalopathy and a COPD exacerbation. Patient presents with bright red blood per rectum which started this morning. Patient complains of multiple episodes of diarrhea yesterday but no significant abdominal pain. Patient states he has never had a colonoscopy. Of note, the patient does take Eliquis as well as Plavix. Patient does have a history of atrial fibrillation and a pacemaker/defibrillator. Patient has been diagnosed with severe congestive heart failure but has improved with goal-directed therapy. Patient states he takes his medication as prescribed and is otherwise without complaint. ED physician did do a SOHAIL which was positive and did reach out to surgery who asked us to do the admission. Patient's other medical problem includes COPD diabetes dyslipidemia. Due to low blood pressure requiring pressor support with Levophed patient will be admitted to the ICU. Plan of care was discussed with patient as well as his who was in the room. Let me know that the patient does complain of early satiety over the last couple of months but states that he has not lost weight but gained weight. CT scan was done which was essentially benign no active bleeding was noted but there was a paucity of stool. Patient's most recent echo shows an EF of 50 to 55% this was done in November of this year. Review of Systems All systems reviewed & are unremarkable except as noted in HPI and below PFSH All Active Problems (Updated 02/09/25 @ 16:37 by Aris Guevara MD) GIB (gastrointestinal bleeding) (Chronic) Altered mental status (Acute) Elevated troponin (Acute) Acute respiratory failure with hypoxia and hypercarbia (Acute) Restless leg syndrome (Acute) Presence of cardiac defibrillator (Acute) Overweight (Acute) NSTEMI (non-ST elevated myocardial infarction) (Acute) Insomnia (Acute) Hypertensive disorder (Chronic) DM type 2 (diabetes mellitus, type 2) (Acute) COPD with chronic bronchitis (Acute) Chronic GERD (Acute) CHF with cardiomyopathy (Acute) Bilateral cataracts (Acute) Atrial flutter (Acute) Atherosclerotic coronary vascular disease (Acute) Paroxysmal A-fib (Acute) ICD (implantable cardioverter-defibrillator) in place (Acute) Medtronic cobalt placed at [facility] 04/15/23 (HFpEF) heart failure with preserved ejection fraction (Acute) 04/15 EF 17% per [facility] RH ASCVD (arteriosclerotic cardiovascular disease) (Acute) Known LAD stenosis s/p PCIx2 to [employer] per [facility] [place], PCI to LAD RH Acid reflux (Chronic) COPD (chronic obstructive pulmonary disease) (Chronic) Hyperlipidemia (Acute) Diabetes mellitus (Chronic) HTN (hypertension) with goal to be determined (Acute) Medical History BPH (benign prostatic hyperplasia) Social History Smoking/Tobacco Use Status: Former Tobacco Use Smoking risk assessment performed?: Yes Alcohol Intake: current Alcohol Intake frequency: 3 or more drinks per day Substance use type: does not use Housing: homeless Meds Allergies and Home Medications Allergies Allergy/AdvReac Type Severity Reaction Status Date / Time Penicillins AdvReac Skin Rash Verified 02/09/25 13:34 Home Medications ?Medication ?Instructions ?Recorded ?Confirmed ?Type glucosamine 500 [id number] 1 tab PO DAILY 04/16/23 02/09/25 History no1 416.6 mg-C 20 [id number] tablet metformin 500 mg tablet 500 mg PO BID 04/16/23 02/09/25 History semaglutide 2 mg/dose (8 mg/3 mL) 2 mg subcut QWEEK 04/16/23 02/09/25 History subcutaneous pen injector (Ozempic) sildenafil 100 mg tablet 100 mg PO DAILY PRN 04/16/23 02/09/25 History tamsulosin 0.4 mg capsule 0.8 mg PO QHS 04/16/23 02/09/25 History amiodarone 200 mg tablet 200 mg PO DAILY 04/22/23 02/09/25 History apixaban 5 mg tablet 5 mg PO BID 04/22/23 02/09/25 History clopidogrel 75 mg tablet 75 mg PO DAILY 04/22/23 02/09/25 History empagliflozin 10 mg tablet 10 mg PO DAILY 04/22/23 02/09/25 History furosemide 40 mg tablet 40 mg PO DAILY 04/22/23 02/09/25 History pantoprazole 40 mg tablet,delayed 40 mg PO DAILY 04/22/23 02/09/25 History release rosuvastatin 40 mg tablet 40 mg PO DAILY 04/22/23 02/09/25 History albuterol sulfate 90 mcg/actuation 2 inh inhalation Q6H PRN 07/06/24 02/09/25 History breath activated powder inhaler gabapentin 100 mg capsule 100 mg PO DAILY 07/06/24 02/09/25 History magnesium chloride 64 mg 64 mg PO DAILY 07/06/24 02/09/25 History tablet,extended release nitroglycerin 0.4 mg sublingual 0.4 mg sublingual Q5M PRN 07/06/24 02/09/25 History tablet omeprazole 20 mg capsule,delayed 20 mg PO DAILY 07/06/24 02/09/25 History release spironolactone 25 mg tablet 25 mg PO DAILY 07/06/24 02/09/25 History tiotropium 2.5 mcg-olodaterol 2.5 2 puff inhalation DAILY 07/06/24 02/09/25 History mcg/actuation mist for inhalation (Stiolto Respimat) metoprolol succinate 100 mg 200 mg PO DAILY 12/04/24 02/09/25 History tablet,extended release 24 hr (Toprol XL) melatonin 3 mg capsule 3 mg PO HS PRN #30 caps 12/07/24 02/09/25 Rx fluticasone 100 mcg-salmeterol 50 2 inh inhalation BID 01/06/25 02/09/25 History mcg/dose blistr powdr for inhalation (Advair Diskus) fluticasone 500 mcg-salmeterol 50 1 inh inhalation DAILY 01/06/25 02/09/25 History mcg/dose blistr powdr for inhalation meloxicam 15 mg tablet 15 mg PO QHS 01/06/25 02/09/25 History sacubitril 49 mg-valsartan 51 mg 1 tab PO BID 01/06/25 02/09/25 History tablet (Entresto) albuterol sulfate 90 mcg/actuation 2 inh inhalation Q6H PRN 02/09/25 02/09/25 History aerosol inhaler fluticasone propionate 230 2 puff inhalation BID 02/09/25 02/09/25 History mcg-salmeterol 21 mcg/actuation HFA inhaler (Advair HFA) metformin 500 mg tablet,extended 1,500 mg PO DAILY 02/09/25 02/09/25 History release 24 hr trazodone 50 mg tablet 50 mg PO DAILY 02/09/25 02/09/25 History Exam Narrative Exam Narrative: HEENT-normocephalic atraumatic mucous membranes moist oropharynx is clear extract motions are intact Neck-no lymphadenopathy no JVD no thyromegaly Cardiovascular-regular rate and rhythm no murmurs gallops Lungs-bilateral expiratory wheeze but no accessory muscle use speaking in complete sentences- abdomen-distended protuberant bowel sounds are present x 4 quadrants no tenderness to palpation Results Labs 02/09/25 14:23 02/09/25 12:13 Labs: Laboratory Results - last 24 hr 02/09/25 02/09/25 02/09/25 12:13 12:42 14:23 WBC 5.00 RBC 4.49 Hgb 12.6 L 12.3 L Hct 40.8 40.0 MCV 91 MCH 28.1 MCHC 30.9 L RDW 16.2 H Plt Count 167 MPV 8.4 Immature Gran % 0.0 Neutrophils % 62.0 Band Neutrophils % 17 Lymphocytes % 8.0 Monocytes % 11.0 Eosinophils % 2.0 Basophils % 0.0 Nucleated RBC % 0.0 Absolute Neutrophils 3.95 Absolute Lymphocytes 0.40 L Absolute Monocytes 0.55 Absolute Eosinophils 0.10 Absolute Basophils 0.00 RBC Morphology Normal PT Cancelled 11.7 H INR Cancelled 1.2 H APTT Cancelled 30.2 VBG Lactate 1.4 Sodium 138 Potassium 4.2 Chloride 98 Carbon Dioxide 34.0 H Anion Gap 6.0 BUN 26 H Creatinine 1.5 H Est GFR (CKD-EPI 2020) 49.47 Glucose 141 H Calcium 9.1 Magnesium 2.1 Total Bilirubin 0.4 Conjugated Bilirubin 0.2 AST 28 ALT 35 Alkaline Phosphatase 96 Total Protein 7.7 Albumin 3.1 L Lipase 23 ABO/Rh O Negative Blood Type Recheck O Negative Antibody Screen NEGATIVE Crossmatch See Detail Last Vital Signs Temp 36.9 C 02/09/25 16:02 Pulse 119 H 02/09/25 16:02 Resp 20 02/09/25 16:02 BP 100/57 L 02/09/25 16:02 Pulse Ox 94 02/09/25 16:02 PAWSS Have you Been Recently Intoxicated or Drunk Within the Last 30 days?: No Have you Ever Experienced Previous Episodes of Alcohol Withdrawal?: No Have you ever Experienced Withdrawal Seizures?: No Have you ever Experienced Delirium Tremens(DT)s?: No Have you ever undergone Alcohol Rehabilitation Treatment (i.e, inpt ot outpatient treatment programs)?: No Have you ever Experienced Blackouts?: No Have you ever Combined Alcohol with other Downers within the last 90 days?: No Have you ever Combined Alcohol with any other Substance of Abuse during the last 90 days?: No Positive Blood Alcohol level on Presentation? [PCS.BAL]: No Evidence of Increased Autonomic Activity (i.e. HR>120, tremor, sweating, agitation, nausea)?: No Result: 0 Time Spent Time spent with Patient: 55-74 minutes Time was spent: preparing to see the patient(eg.review tests), obtaining and/or reviewing separately otained hiistory, ordering medications,tests, procedures, referring, communicating with other health career technical education teacher, indepentently interpreting results, counseling the patient and care coordination
--- NOTE | 2025-02-09 16:58 | W.PC.ACHO ---
Registration Status: REG ER Primary Language: Preferred Language: ED Information & Data Chief Complaint GI Bleed 02/09/25 13:27 Triage Note Patient had diarrhea all day 02/09/25 11:55 yesterday and at 0400 this morning he started passing alot of blood with the diarrhea. Has had some incontinence (not normal), has now developed some generalized abdominal pain. feels weak and lethargic. no n/v. Some chills Medical / Surgical History (Last Reviewed 12/04/24 @ 13:48 by Sam Perez MD) Elevated troponin Acute exacerbation of chronic obstructive pulmonary disease (COPD) Acute respiratory failure with hypoxia and hypercapnia BPH (benign prostatic hyperplasia) Most Recent Vital Signs Temperature 36.9 C 02/09/25 16:32 Pulse 117 H 02/09/25 16:32 Pulse 118 H 02/09/25 15:50 Respiratory Rate 18 02/09/25 16:32 Blood Pressure 102/54 L 02/09/25 16:32 Blood Pressure Mean 87 02/09/25 15:46 Blood Pressure Position Sitting 02/09/25 11:55 Pulse Oximetry 94 02/09/25 16:32 Oxygen Delivery Method Nasal Cannula 02/09/25 16:32 Oxygen Flow Rate 3 02/09/25 16:32 Pain Level 4 02/09/25 11:55 Comment provider aware. ns bolus ordered by kimi rodriguez 02/09/25 13:55 Allergies Penicillins Adverse Reaction (Verified 02/09/25 13:34) Skin Rash Active Medications Generic Name Dose Route Start Last Admin Trade Name Freq PRN Reason Stop Dose Admin Iohexol 100 ml 02/09/25 12:45 02/09/25 12:41 Omnipaque 350 Mg/Ml 100 Ml Btl IJ 03/11/25 23:59 100 ml DIRECTED AMANDA Administration Sodium Chloride 0 ml 02/09/25 12:40 02/09/25 12:42 Normal Saline Flush 10 Ml Syr IVP 10 ml PRN PRN Administration Sodium Chloride 50 ml 02/09/25 12:45 02/09/25 12:42 Normal Saline - Diluent 50 Ml Vial IJ 50 ml DIRECTED AMANDA Administration IV IV Catheter Type [Right Hand] Peripheral IV IV Catheter Type [Right Peripheral IV Antecubital] IV Catheter Gauge [Right Hand] 18 IV Catheter Gauge [Right 18 Antecubital] Diet Orders Category Date Time Status Nothing Per Oral [DIET] Nutrition 02/09/25 15:57 Active Diagnostics 02/09/25 02/09/25 02/09/25 Range/Units 14:23 12:42 12:13 WBC 5.00 (4.4-10.8) 10^3/uL RBC 4.49 (4.36-5.78) 10^6/uL Hgb 12.3 L 12.6 L (13.5-17.5) g/dL Hct 40.0 40.8 (40.0-50.0) % MCV 91 (80-95) fL MCH 28.1 (27.0-33.0) pg MCHC 30.9 L (32.0-36.0) % RDW 16.2 H (11.8-14.1) % Plt Count 167 (130-400) 10^3/uL MPV 8.4 (8.0-11.0) fL Immature Gran % 0.0 % Neutrophils % 62.0 % Band Neutrophils % 17 % Lymphocytes % 8.0 % Monocytes % 11.0 % Eosinophils % 2.0 % Basophils % 0.0 % Nucleated RBC % 0.0 (0.0-0.3) % Absolute Neutrophils 3.95 (1.2-6.7) 10^3/uL Absolute Lymphocytes 0.40 L (1.2-3.4) 10^3/uL Absolute Monocytes 0.55 (0.1-0.8) 10^3/uL Absolute Eosinophils 0.10 (0.0-0.7) 10^3/uL Absolute Basophils 0.00 (0.0-0.2) 10^3/uL RBC Morphology Normal PT 11.7 H Cancelled INR 1.2 H Cancelled APTT 30.2 Cancelled VBG Lactate 1.4 (<or=2.0) mmol/L Sodium 138 (136-145) mmol/L Potassium 4.2 (3.5-5.1) mmol/L Chloride 98 (98-107) mmol/L Carbon Dioxide 34.0 H (21.0-32.0) mmol/L Anion Gap 6.0 (3-11) mmol/L BUN 26 H (7-18) mg/dL Creatinine 1.5 H (0.70-1.30) mg/dL Est GFR (CKD-EPI 2020) 49.47 (mL/min/1.73m2) Glucose 141 H (74-106) mg/dL Calcium 9.1 (8.5-10.1) mg/dL Magnesium 2.1 (1.8-2.4) mg/dL Total Bilirubin 0.4 (0.2-1.0) mg/dL Conjugated Bilirubin 0.2 (0.0-0.2) mg/dL AST 28 (15-37) U/L ALT 35 (16-63) U/L Alkaline Phosphatase 96 (46-116) U/L Total Protein 7.7 (6.4-8.2) g/dL Albumin 3.1 L (3.4-5.0) g/dL Lipase 23 (<78) U/L ABO/Rh O Negative Blood Type Recheck O Negative Antibody Screen NEGATIVE Crossmatch See Detail Intake and Output - 24 Hour Total 02/09/25 11:50 thru 02/09/25 15:38 Intake Total 750 Balance 750 Weight 113.398 kg Intake: IV 750 Other: Stool Size Moderate Stool Characteristics Liquid Bloody Emesis Description Bright Red Blood Falls Risk Assessment History of Falls No History 02/09/25 12:02 Contributing Factors No Factors 02/09/25 12:02 Ambulatory Aids Independent 02/09/25 12:02 Tubes/Lines None 02/09/25 12:02 Gait Evaluation No gait disturbance 02/09/25 12:02 Cognition No cognitive impairment 02/09/25 12:02 Fall Total Score 0 02/09/25 12:02 Level of Risk Standard/Low Risk 02/09/25 12:02 Problems (Last Reviewed 12/04/24 @ 13:48 by Sam Perez MD) GIB (gastrointestinal bleeding) (Chronic) Overweight (Acute) DM type 2 (diabetes mellitus, type 2) (Acute) Paroxysmal A-fib (Acute) ICD (implantable cardioverter-defibrillator) in place (Acute) ASCVD (arteriosclerotic cardiovascular disease) (Acute) COPD (chronic obstructive pulmonary disease) (Chronic) Hyperlipidemia (Acute) HTN (hypertension) with goal to be determined (Acute) v v v v v v v v v Sending and/or Receiving Nurses: Please use comment section below to note any information pertinent to the patient hand-off not included above. Information / Comments: Report received from: Miguel Trujillo RN
[2025-02-09] MEDS: Norepinephrine in D5W 8 MG/250 ML BAG 15 MG IV (17:38)
--- NOTE | 2025-02-09 18:04 | NUR.NOTE ---
17:45 This rn called and s/w Dr Guevara ICU physician. Informed provider that pt is hypotensive again with BP ranging between 63/47- 74/47 and blood transfusion is finishing. This rn started levophed again at 8mcg and informed Dr Guevara. Per Dr Guevara: continue with Levophed with goal being MAP >65. No further orders at this time. 17:55 This rn infomrmed Kym VEIN ACCESS TECHNICIAN of conversation with Dr Guevara. Nursing Note:
[2025-02-09] MEDS: Meloxicam 15 MG TAB PO (19:27)
[2025-02-09] MEDS: Tamsulosin 0.4 MG CAPCR 0.8 MG PO (19:27)
[2025-02-09] MEDS: Normal Saline 1,000 ML 150 ML IV (22:53)
[2025-02-10] VITALS (74 sets, daily range): BP systolic 74–163; BP diastolic 42–137; PULSE 106–166; RESP 13–31; TEMP 36.7–37.1; O2SAT 80–96
[2025-02-10 06:24] LABS: HCT 43.6 % (40.0-50.0); HGB 13.3 g/dL (13.5-17.5); MCH 28.3 pg (27.0-33.0); MCHC 30.5 % (32.0-36.0); MCV 93 fL (80-95); MPV 8.6 fL (8.0-11.0); Platelet Count 186 10^3/uL (130-400); RBC 4.70 10^6/uL (4.36-5.78); RDW 16.5 % (11.8-14.1); RDW-SD 56.1 fL; WBC 5.38 10^3/uL (4.4-10.8)
[2025-02-10 06:47] LABS: ALT 28 U/L (16-63); AST 23 U/L (15-37); Albumin 2.6 g/dL (3.4-5.0); Alkaline Phosphatase 78 U/L (46-116); Anion Gap 12.1 mmol/L (3-11); BUN 27 mg/dL (7-18); Bilirubin, Total 0.4 mg/dL (0.2-1.0); CO2 27.9 mmol/L (21.0-32.0); Calcium 8.6 mg/dL (8.5-10.1); Chloride 103 mmol/L (98-107); Estimated GFR 42.57 (mL/min/1.73m2); Glucose 116 mg/dL (74-106); Potassium 4.2 mmol/L (3.5-5.1); Sodium 143 mmol/L (136-145); Total Protein 6.7 g/dL (6.4-8.2)
[2025-02-10 07:12] LABS: RBC Morphology Normal
[2025-02-10] MEDS: Pantoprazole 40 MG TABCR PO (07:46)
[2025-02-10] MEDS: Amiodarone 200 MG TAB PO (08:05)
[2025-02-10] MEDS: traZODone 50 MG TAB PO (08:05)
[2025-02-10] MEDS: Furosemide 40 MG TAB PO (08:05)
[2025-02-10] MEDS: Empaglifozin 10 MG TAB PO (08:06)
[2025-02-10] MEDS: Spironolactone 25 MG TAB PO (08:07)
[2025-02-10] MEDS: Rosuvastatin 20 MG TAB 40 MG PO (08:07)
[2025-02-10] MEDS: Magnesium Chloride 64 MG TABCR PO (08:08)
--- NOTE | 2025-02-10 08:57 | W.NUTRFU ---
Date of service: 02/10/25 Time of Service: 08:57 Nutrition Note NOTE: PT on day 1 of NPO status due to GIB. History includes HLD, HTN. ASCVD, A-fib, DMII,COPD and obesity. No A1C on record. FPG 115 this morning and 117 at breakfast. Ordered for his home empagliflozin and weekly semaglutide. No insulin ordered at this time. was unable to visit with patient this morning - will approach again regarding nutrition interview and NFPE. will monitor po status, nutrition-related labs/glucose, weight. Time Spent in Nutritional Counseling and Treatment: 0
--- NOTE | 2025-02-10 09:00 | SCONE_ITS ---
Date of service: 02/10/25 Time of Service: 09:00 Assessment and Plan Assessment and plan (1) GIB (gastrointestinal bleeding): Status: Chronic Assessment and plan: Bright red blood per rectum. Unidentified source at this time. CTA negative for bleed but does show fat halo, which can be seen with possible inflammatory bowel disease. No prior endoscopies. History of reflux. On Eliquis for history of A-fib with stroke, currently held. Transfused 1 unit - Hgb stable at 12 prior to transfusion, responded appropriately. Brown stools at this time. High risk based on comorbidities. - Recommend colonoscopy - With history of reflux and unidentified source, EGD may be of benefit as well - Bowel prep today - Okay for clear liquid diet - Continue to hold Eliquis (2) Anticoagulated: Status: Acute Assessment and plan: - hold eliquis (3) COPD (chronic obstructive pulmonary disease): Assessment and plan: On O2 - Pulm recs and management appreciated - continue O2 (4) CHF with cardiomyopathy: Assessment and plan: Doubtful that hypotension related to minor GI bleed at this point. Requiring levophed. - Echo - Cards recs and risk stratification - evaluated for other sources of hypotension (5) Chronic GERD: (6) DM type 2 (diabetes mellitus, type 2): Assessment and plan: - goal BG <200 (7) Umbilical hernia without obstruction and without gangrene: Status: Acute Assessment and plan: Fat containing, seen on CT - outpatient follow up History of Present Illness History of Present Illness Chief Complaint: GI bleed Narrative: If 70-year-old male with history of CHF status post AICD placement, COPD, diabetes, cardiac fibrillation on Eliquis who presented with bright red blood per rectum. At 4 AM on 02/09, patient went to the bathroom for bowel movement and noted bright red blood in the toilet. Patient then presented to the emergency department where he had additional episodes of bright red blood per rectum. Hemoglobin stable during that time. 1 unit of red blood cells given. Patient now having soft brown bowel movements. No rectal or abdominal pain. Denies reflux or heartburn. States bowel movements can vary between loose to firm. No bleeding per rectum in the past. Denies chest pain, shortness of breath, fevers, chills. Found to be hypotensive and currently on Levophed. Review of Systems Constitutional Constitutional: Denies chills, Denies fatigue, Denies fever(s), Denies lethargy and Denies weakness ENT Ears, Nose, Mouth, and Throat: Denies dysphagia and Denies dizziness Cardiovascular Cardiovascular: Denies chest pain, Denies syncope, Denies irregular heart rhythm, Denies leg edema and Denies dyspnea Respiratory Respiratory: Denies cough and Denies dyspnea Gastrointestinal Gastrointestinal: Denies abdominal pain, Denies melena, Reports hematochezia, Denies dysphagia, Denies heartburn, Reports diarrhea, Denies nausea and Denies vomiting Neurologic Neurologic: Denies abnormal speech, Denies confusion, Denies dizziness, Denies syncope and Denies weakness Psychiatric Psychiatric: Denies confusion Endocrine Endocrine: Denies fatigue Hematologic/Lymphatic Hematologic/Lymphatic: Denies easy bleeding and Denies easy bruising PFSH All Active Problems (Updated 02/10/25 @ 11:49 by Ankur Akers DO) Anticoagulated (Acute) Umbilical hernia without obstruction and without gangrene (Acute) BPH (benign prostatic hyperplasia) (Chronic) GIB (gastrointestinal bleeding) (Chronic) Altered mental status (Acute) Elevated troponin (Acute) Acute respiratory failure with hypoxia and hypercarbia (Acute) Restless leg syndrome (Acute) Presence of cardiac defibrillator (Acute) Overweight (Acute) NSTEMI (non-ST elevated myocardial infarction) (Acute) Insomnia (Acute) Hypertensive disorder (Chronic) COPD with chronic bronchitis (Acute) Bilateral cataracts (Acute) Atrial flutter (Acute) Atherosclerotic coronary vascular disease (Acute) Acid reflux (Chronic) Hyperlipidemia (Acute) Diabetes mellitus (Chronic) Medical History HTN (hypertension) with goal to be determined Paroxysmal A-fib COPD (chronic obstructive pulmonary disease) DM type 2 (diabetes mellitus, type 2) ASCVD (arteriosclerotic cardiovascular disease) Known LAD stenosis s/p PCIx2 to [employer] per [facility], PCI to LAD RH ICD (implantable cardioverter-defibrillator) in place Medtronic cobalt placed at [facility] 04/15/23 CHF with cardiomyopathy (HFpEF) heart failure with preserved ejection fraction 04/15 EF 17% per [facility] RH Chronic GERD Elevated troponin Acute exacerbation of chronic obstructive pulmonary disease (COPD) Acute respiratory failure with hypoxia and hypercapnia Social History (Reviewed 02/10/25 @ 11:40 by PALLAVI Cantu Smoking/Tobacco Use Status: Former Tobacco Use Smoking risk assessment performed?: Yes Alcohol Intake: current Alcohol Intake frequency: 3 or more drinks per day Substance use type: does not use Housing: house Exam Const General: cooperative, comfortable and no acute distress Nutritional Appearance: well nourished and obese Orientation: alert, awake and oriented x3 HENMT Other: NC in place Resp Effort & Inspection: normal respiratory effort Cardio Rate: tachycardic GI Palpation: soft and no guarding Rectal Exam: visual inspection normal and No hemorrhoids (no external hemorrhoid) Other: no blood. brown stool present Skin General skin exam: no ecchymosis, no erythema, no mottling and no pallor Neuro General: patient alert, patient awake, patient oriented x3, moves all extremities and no focal motor deficits Results Last Vital Signs Temp 36.7 C 02/10/25 07:55 Pulse 121 H 02/10/25 07:55 Resp 31 H 02/10/25 07:55 BP 102/54 L 02/10/25 04:38 Pulse Ox 94 02/10/25 07:55 Labs 02/10/25 05:55 02/10/25 05:55 Labs: Laboratory Results - last 24 hr 02/09/25 02/09/25 02/09/25 12:13 12:42 14:23 WBC 5.00 RBC 4.49 Hgb 12.6 L 12.3 L Hct 40.8 40.0 MCV 91 MCH 28.1 MCHC 30.9 L RDW 16.2 H Plt Count 167 MPV 8.4 Immature Gran % 0.0 Neutrophils % 62.0 Band Neutrophils % 17 Lymphocytes % 8.0 Monocytes % 11.0 Eosinophils % 2.0 Basophils % 0.0 Nucleated RBC % 0.0 Absolute Neutrophils 3.95 Absolute Lymphocytes 0.40 L Absolute Monocytes 0.55 Absolute Eosinophils 0.10 Absolute Basophils 0.00 RBC Morphology Normal PT Cancelled 11.7 H INR Cancelled 1.2 H APTT Cancelled 30.2 VBG Lactate 1.4 Sodium 138 Potassium 4.2 Chloride 98 Carbon Dioxide 34.0 H Anion Gap 6.0 BUN 26 H Creatinine 1.5 H Est GFR (CKD-EPI 2020) 49.47 Glucose 141 H Calcium 9.1 Magnesium 2.1 Total Bilirubin 0.4 Conjugated Bilirubin 0.2 AST 28 ALT 35 Alkaline Phosphatase 96 Total Protein 7.7 Albumin 3.1 L Lipase 23 ABO/Rh O Negative Blood Type Recheck O Negative Antibody Screen NEGATIVE Crossmatch See Detail 02/10/25 05:55 WBC 5.38 RBC 4.70 Hgb 13.3 L Hct 43.6 MCV 93 MCH 28.3 MCHC 30.5 L RDW 16.5 H Plt Count 186 MPV 8.6 Immature Gran % See Differential Neutrophils % 50.0 Band Neutrophils % 11 Lymphocytes % 21.0 Monocytes % 16.0 Eosinophils % 2.0 Basophils % 0.0 Nucleated RBC % 0.0 Absolute Neutrophils 3.28 Absolute Lymphocytes 1.13 L Absolute Monocytes 0.86 H Absolute Eosinophils 0.11 Absolute Basophils 0.00 RBC Morphology Normal PT INR APTT VBG Lactate Sodium 143 Potassium 4.2 Chloride 103 Carbon Dioxide 27.9 Anion Gap 12.1 H BUN 27 H Creatinine 1.7 H Est GFR (CKD-EPI 2020) 42.57 Glucose 116 H Calcium 8.6 Magnesium Total Bilirubin 0.4 Conjugated Bilirubin AST 23 ALT 28 Alkaline Phosphatase 78 Total Protein 6.7 Albumin 2.6 L Lipase ABO/Rh Blood Type Recheck Antibody Screen Crossmatch Imaging Abdomen CT scan report/results: report reviewed (no acute bleed. fat halo on colon. 3.2cm AAA. umbilical hernia) and image reviewed
--- NOTE | 2025-02-10 09:13 | PDOC.CMIN ---
Date of service: 02/10/25 Time of Service: 09:13 Care Management Initial Assmt Initial Assessment Reason for Hospitalization: GIB Functional Status/Living Situation Patient Presentation: Robert was sitting up on the side of the bed when CM met with him. He was polite but not overly talkative. Robert lives in a mobile home in [place]. His first from Alzheimer's disease after 40 years of marriage and he met his new Trudy a short time later. They have been for 2 years and her grandson Smith lives with them. Robert has 4 daughters. Three of the 'girls live locally and the 4th is in [place]. 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 He does not receive any community services and is independent at baseline. Robert was admitted with rectal bleeding. He reported that he is feeling well. He stated he never felt sick but has had bloody diarrhea for a couple of days, leaving him feeling weak. Robert is scheduled to have a colonoscopy tomorrow; he is the process of prepping for it this afternoon. Robert was hypotensive on admission and was admitted to the ICU on a nor-epinephrine drip. His SBP has been >100 all day on 18.8 mls/hr, although he is still tachycardic with HR between 110 and the 130s. CM will follow. 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) Instrumental Activities of Daily Living (ADLs): Independent Medications Medication Management: No Issues/Barriers identified Physical Functioning/Mobility Assistive Device: none Advance Directives Advance Directives: Do you have an Advance Directive: N 04/16/23, 11:34 AD On File at [facility]: N 01/06/25, 13:08 Date Asked 02/09/25 02/09/25, 11:58 AD Date Reviewed COLST On File at [facility] No 12/04/24, 15:26 COLST Date Scanned Code Status Resuscitation Status Full Code Portal Pt does not currently have a portal and education provided: Yes Insurance Coverage/Financial Issues Insurance: BC/BS Medicare Advantage Care Team Visit Care Team Role Provider Type Jc Morales DO Primary Care Provider NON-[facility] STAFF PHYSICIAN InPatient Nicko Morales Other Providers OTHER Ankur Akers DO Other Providers OSTEOPATHIC DOCTOR [facility] Provider PHYSICIANS GALLERY OR MUSEUM TECHNICIAN Aris Guevara MD Admit Provider [facility] STAFF PHYSICIAN Attending Provider Discharge Potential Discharge Needs: PCP F/U Appt Anticipated Barriers to Discharge: None Identified Patient/Family Education Needs: Review discharge instructions, discuss Ask Me Three Transportation: Private vehicle Plan: Anticipate Robert will return home once medically cleared. He will follow up with his community providers and continue per his plan of care. Robert will transport via private vehicle with his . CM will continue to assess for discharge needs. Social Determinants of Health Screening Social Determinants of health last assessed in clinic: 02/10/25 Will the Patient Participate in the Screening?: Yes Do you worry about having a steady place to live?: no Problems where you live: no known problems In the past 12 months, have you had to go without electric, gas, oil or water in your home?: no 1. Within the past 12 months, we worried whether our food would run out before we got money to buy more.: Never true 2. Within the past 12 months, the food we bought just didn't last and we didn't have money to get more.: Never true Has lack of transportation kept you from medical appointments or from doing things needed for daily living?: no Has anyone in your life made you feel unsafe or unsupported?: no How hard is it for you to pay for the very basics like food, housing, medical care, and heating? Would you say it is:: Not hard at all Do you want help finding or keeping work or a job?: I do not need or want help If for any reason you need help with day-to-day activities such as bathing, preparing meals, shopping, managing finances, etc., do you get the help you need?: I don?t need any help How often do you feel lonely or isolated from those around you?: Never Do you speak a language other than Macedonian at home?: No Does the patient want assistance with any of the above?: No PFSH All Active Problems (Updated 02/10/25 @ 11:49 by Ankur Akers DO) Anticoagulated (Acute) Umbilical hernia without obstruction and without gangrene (Acute) BPH (benign prostatic hyperplasia) (Chronic) GIB (gastrointestinal bleeding) (Chronic) Altered mental status (Acute) Elevated troponin (Acute) Acute respiratory failure with hypoxia and hypercarbia (Acute) Restless leg syndrome (Acute) Presence of cardiac defibrillator (Acute) Overweight (Acute) NSTEMI (non-ST elevated myocardial infarction) (Acute) Insomnia (Acute) Hypertensive disorder (Chronic) COPD with chronic bronchitis (Acute) Bilateral cataracts (Acute) Atrial flutter (Acute) Atherosclerotic coronary vascular disease (Acute) Acid reflux (Chronic) Hyperlipidemia (Acute) Diabetes mellitus (Chronic) Medical History HTN (hypertension) with goal to be determined Paroxysmal A-fib COPD (chronic obstructive pulmonary disease) DM type 2 (diabetes mellitus, type 2) ASCVD (arteriosclerotic cardiovascular disease) Known LAD stenosis s/p PCIx2 to [employer]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 [place] [facility] [place] ICD (implantable cardioverter-defibrillator) in place Medtronic cobalt [place] [facility] [place] CHF with cardiomyopathy (HFpEF) heart failure with preserved ejection fraction 04/15 EF 17% [place] [facility] [place] Chronic GERD Elevated troponin Acute exacerbation of chronic obstructive pulmonary disease (COPD) Acute respiratory failure with hypoxia and hypercapnia Social History Smoking/Tobacco Use Status: Former Tobacco Use Smoking risk assessment performed?: Yes Alcohol Intake: current Alcohol Intake frequency: 3 or more drinks per day Substance use type: does not use Housing: house
[2025-02-10] MEDS: Tiotropium/Olodaterol 10 PUFF INHALER 2 PUFF IH (09:26)
[2025-02-10] MEDS: Norepinephrine in D5W 8 MG/250 ML BAG 18.8 MG IV (10:24)
--- NOTE | 2025-02-10 10:58 | PGE_ITS ---
Date of Service Date of service: 02/10/25 Time of Service: 10:59 Assessment and Plan Assessment and plan (1) GIB (gastrointestinal bleeding): Status: Chronic Assessment and plan: Consult to general surgery placed will make n.p.o. As this does appear to be lower GI bleed and will see a role for Carafate or PPI drip. Will hold his Eliquis as well as his Plavix. Do not see a clear reason why the patient is on Plavix at this point. 02/10/25 GS to see pt today. Per my discussion with Dr Akers, plan on scoping in am tomorrow. Pt did have an appropriate response to xfusion and his Hg is ~13 today. (2) Hyperlipidemia: Status: Acute Assessment and plan: Continue with statins when tolerating p.o. (3) HTN (hypertension) with goal to be determined: Assessment and plan: Patient is on multiple medications for hypertension including beta-donna ARB Aldactone. Restart these meds when tolerating p.o. 02/10/25 Pt remains hypotensive. Will hold anti-hypertensives for now as pt is on pressure support as well. (will c/w bb 2/2 tachycardia) (4) ASCVD (arteriosclerotic cardiovascular disease): Assessment and plan: Do not see any EKG been ordered in the ED will order it. 02/10/25 (5) ICD (implantable cardioverter-defibrillator) in place: Assessment and plan: Noted. Notes from 01/06/2025 by cardiology has been reviewed. Pacemaker seems to be working appropriately. (6) Paroxysmal A-fib: Assessment and plan: Pending the results of his scope would recommend restarting his Eliquis to at least but will score is has-bleed prior to reinitiation Has-bled score is 3 which puts him at high risk. (7) DM type 2 (diabetes mellitus, type 2): Assessment and plan: Will continue with his outpatient regimen except for holding his metformin as his creatinine is 1.5. (8) Overweight: Status: Acute Assessment and plan: Consult dietary in the morning (9) COPD (chronic obstructive pulmonary disease): Assessment and plan: Continue with his inhalers. aAlbuterol/fluticasone/salmeterol (10) BPH (benign prostatic hyperplasia): Status: Chronic Assessment and plan: c/w flomax Subjective Subjective Interval history since last seen: Pt seen and examined in his room. Pt remains on pressure support (levophed@10). NS report pt with decreasing blood in stool but still there Exam Narrative Exam Narrative: HEENT-normocephalic atraumatic mucous membranes moist oropharynx is clear extract motions are intact Neck-no lymphadenopathy no JVD no thyromegaly Cardiovascular-tachycardia no murmurs gallops Lungs-bilateral expiratory wheeze but no accessory muscle use speaking in complete sentences. Tachypnea abdomen-distended protuberant bowel sounds are present x 4 quadrants no tenderness to palpation Objective Last Vital Signs Temp 36.7 C 02/10/25 07:55 Pulse 121 H 02/10/25 07:55 Resp 31 H 02/10/25 07:55 BP 102/54 L 02/10/25 04:38 Pulse Ox 90 L 02/10/25 09:31 Laboratory Results - last 24 hr 02/09/25 02/09/25 02/09/25 12:13 12:42 14:23 WBC 5.00 RBC 4.49 Hgb 12.6 L 12.3 L Hct 40.8 40.0 MCV 91 MCH 28.1 MCHC 30.9 L RDW 16.2 H Plt Count 167 MPV 8.4 Immature Gran % 0.0 Neutrophils % 62.0 Band Neutrophils % 17 Lymphocytes % 8.0 Monocytes % 11.0 Eosinophils % 2.0 Basophils % 0.0 Nucleated RBC % 0.0 Absolute Neutrophils 3.95 Absolute Lymphocytes 0.40 L Absolute Monocytes 0.55 Absolute Eosinophils 0.10 Absolute Basophils 0.00 RBC Morphology Normal PT Cancelled 11.7 H INR Cancelled 1.2 H APTT Cancelled 30.2 VBG Lactate 1.4 Sodium 138 Potassium 4.2 Chloride 98 Carbon Dioxide 34.0 H Anion Gap 6.0 BUN 26 H Creatinine 1.5 H Est GFR (CKD-EPI 2020) 49.47 Glucose 141 H Calcium 9.1 Magnesium 2.1 Total Bilirubin 0.4 Conjugated Bilirubin 0.2 AST 28 ALT 35 Alkaline Phosphatase 96 Total Protein 7.7 Albumin 3.1 L Lipase 23 ABO/Rh O Negative Blood Type Recheck O Negative Antibody Screen NEGATIVE Crossmatch See Detail 02/10/25 05:55 WBC 5.38 RBC 4.70 Hgb 13.3 L Hct 43.6 MCV 93 MCH 28.3 MCHC 30.5 L RDW 16.5 H Plt Count 186 MPV 8.6 Immature Gran % See Differential Neutrophils % 50.0 Band Neutrophils % 11 Lymphocytes % 21.0 Monocytes % 16.0 Eosinophils % 2.0 Basophils % 0.0 Nucleated RBC % 0.0 Absolute Neutrophils 3.28 Absolute Lymphocytes 1.13 L Absolute Monocytes 0.86 H Absolute Eosinophils 0.11 Absolute Basophils 0.00 RBC Morphology Normal PT INR APTT VBG Lactate Sodium 143 Potassium 4.2 Chloride 103 Carbon Dioxide 27.9 Anion Gap 12.1 H BUN 27 H Creatinine 1.7 H Est GFR (CKD-EPI 2020) 42.57 Glucose 116 H Calcium 8.6 Magnesium Total Bilirubin 0.4 Conjugated Bilirubin AST 23 ALT 28 Alkaline Phosphatase 78 Total Protein 6.7 Albumin 2.6 L Lipase ABO/Rh Blood Type Recheck Antibody Screen Crossmatch PAWSS Have you Been Recently Intoxicated or Drunk Within the Last 30 days?: No Have you Ever Experienced Previous Episodes of Alcohol Withdrawal?: No Have you ever Experienced Withdrawal Seizures?: No Have you ever Experienced Delirium Tremens(DT)s?: No Have you ever undergone Alcohol Rehabilitation Treatment (i.e, inpt ot outp atient treatment programs)?: No Have you ever Experienced Blackouts?: No Have you ever Combined Alcohol with other Downers within the last 90 days?: No Have you ever Combined Alcohol with any other Substance of Abuse during the last 90 days?: No Positive Blood Alcohol level on Presentation? [PCS.BAL]: No Evidence of Increased Autonomic Activity (i.e. HR>120, tremor, sweating, agitation, nausea)?: No Result: 0 Time Spent with Patient Time Spent with Patient: 35-49 minutes Time was spent: preparing to see the patient(eg.review tests), obtaining and/or reviewing separately otained hiistory, ordering medications,tests, procedures, referring, communicating with other health nursing care attendant, indepentently interpreting results, counseling the patient and care coordination
--- NOTE | 2025-02-10 11:00 | RT.EKG_ITS ---
APPROVED REPORT Exam: Resting ECG Reason for Exam: cad Patient Location: I HR:119 bpm ECG Measurements Heart Rate 119 AXIS WY 150 P 68 QRSd 113 QRS 55 QT 315 T 208 QTc 444 Conclusion Sinus tachycardia...rate> 99 Consider left atrial enlargement...wide or notched P waves Anteroseptal infarct, old...Q >40mS, V1-V2
[2025-02-10] MEDS: Normal Saline Flush 10 ML SYR IVP (15:03)
[2025-02-10] MEDS: Normal Saline 1,000 ML 150 ML IV (16:03)
--- NOTE | 2025-02-10 16:15 | RT.EKG_ITS ---
APPROVED REPORT Exam: Resting ECG Reason for Exam: arrhythmia Patient Location: I HR:129 bpm ECG Measurements Heart Rate 129 AXIS SD 141 P 52 QRSd 103 QRS 28 QT 293 T 141 QTc 430 Conclusion Sinus tachycardia...rate> 99 Probable left atrial enlargement...P >50mS, <-0.10mV V1 Abnormal T, consider ischemia, lateral leads...T <-0.20mV, I aVL V5 V6
[2025-02-10 16:54] LABS: HCT 45.4 % (40.0-50.0); HGB 14.1 g/dL (13.5-17.5); MCH 27.8 pg (27.0-33.0); MCHC 31.1 % (32.0-36.0); MCV 90 fL (80-95); MPV 8.8 fL (8.0-11.0); RBC 5.07 10^6/uL (4.36-5.78); RDW 16.5 % (11.8-14.1); RDW-SD 53.9 fL; WBC 6.08 10^3/uL (4.4-10.8)
[2025-02-10 17:12] LABS: Anisocytosis 1+; Immature Grans % 0.0 %; Platelet Count 227 10^3/uL (130-400)
[2025-02-10 17:13] LABS: Abs Immature Grans 0.00 10^3/uL (0.0-0.06)
[2025-02-10 17:16] LABS: ALT 28 U/L (16-63); AST 23 U/L (15-37); Albumin 3.0 g/dL (3.4-5.0); Alkaline Phosphatase 93 U/L (46-116); Anion Gap 11.0 mmol/L (3-11); BUN 26 mg/dL (7-18); Bilirubin, Total 0.4 mg/dL (0.2-1.0); CO2 30.0 mmol/L (21.0-32.0); Calcium 9.3 mg/dL (8.5-10.1); Chloride 99 mmol/L (98-107); Estimated GFR 37.25 (mL/min/1.73m2); Glucose 139 mg/dL (74-106); Magnesium 2.1 mg/dL (1.8-2.4); Potassium 4.1 mmol/L (3.5-5.1); Sodium 140 mmol/L (136-145); Total Protein 7.7 g/dL (6.4-8.2)
[2025-02-10] MEDS: Budesonide/Formoterol 160/4.5 6 GM 60 PUFF INH IH (20:11)
[2025-02-10] MEDS: Tamsulosin 0.4 MG CAPCR 0.8 MG PO (20:19)
[2025-02-10] MEDS: Meloxicam 15 MG TAB PO (20:19)
[2025-02-11] VITALS (61 sets, daily range): BP systolic 82–154; BP diastolic 35–84; PULSE 89–130; RESP 15–26; TEMP 36.9–37.3; O2SAT 85–98; BMI 38.1
[2025-02-11 05:51] LABS: Abs Immature Grans 0.03 10^3/uL (0.0-0.06); HCT 42.7 % (40.0-50.0); HGB 12.9 g/dL (13.5-17.5); Immature Grans % 0.7 %; MCH 27.5 pg (27.0-33.0); MCHC 30.2 % (32.0-36.0); MCV 91 fL (80-95); MPV 8.3 fL (8.0-11.0); Platelet Count 192 10^3/uL (130-400); RBC 4.69 10^6/uL (4.36-5.78); RDW 16.5 % (11.8-14.1); RDW-SD 55.2 fL; WBC 4.50 10^3/uL (4.4-10.8)
[2025-02-11 06:08] LABS: ALT 24 U/L (16-63); AST 19 U/L (15-37); Albumin 2.6 g/dL (3.4-5.0); Alkaline Phosphatase 80 U/L (46-116); Anion Gap 3.0 mmol/L (3-11); BUN 20 mg/dL (7-18); Bilirubin, Total 0.3 mg/dL (0.2-1.0); CO2 36.0 mmol/L (21.0-32.0); Calcium 8.9 mg/dL (8.5-10.1); Chloride 101 mmol/L (98-107); Estimated GFR 45.78 (mL/min/1.73m2); Glucose 118 mg/dL (74-106); Potassium 4.4 mmol/L (3.5-5.1); Sodium 140 mmol/L (136-145); Total Protein 6.9 g/dL (6.4-8.2)
--- NOTE | 2025-02-11 07:36 | PGE_ITS ---
Date of Service Date of service: 02/11/25 Time of Service: 07:36 Assessment and Plan Assessment and plan (1) GIB (gastrointestinal bleeding): Status: Chronic Assessment and plan: onoing GI bleeding, egd and colonoscopy planned today for diagnostic and possibly therapeutic purposes. Discussed w patient this AM. Discussed egd and colonoscopy procedure risks, benefits, alternatives and expectations. procedure scheduled. (2) Anticoagulated: Status: Acute Assessment and plan: 48h since last dose of eliquis. okay to proceed. Subjective Subjective Interval history since last seen: bowel prep successful. running clear now. Had blood out w prep. off pressor since 4:00 hour. Exam Narrative Exam Narrative: awake, NAD eomi, MMM midline trachea, neck is symmetric PULM: normal resp effort, equal chest rise with respiration, no wheezing audible CARDIAC: normal PMI, no jvd, regular rate, normal perfusion abdomen is nondistended. extremities are without deformity, normal movement of all four extremities speech is clear and coherent mood and affect are congruent, no focal neurological deficits skin without rash Objective Last Vital Signs Temp 98.2 F 02/10/25 14:56 Pulse 106 H 02/11/25 04:30 Resp 20 02/11/25 04:30 BP 118/59 L 02/11/25 04:30 Pulse Ox 96 02/11/25 05:05 Laboratory Results - last 24 hr 02/10/25 02/11/25 16:47 05:35 WBC 6.08 4.50 RBC 5.07 4.69 Hgb 14.1 12.9 L Hct 45.4 42.7 MCV 90 91 MCH 27.8 27.5 MCHC 31.1 L 30.2 L RDW 16.5 H 16.5 H Plt Count 227 192 MPV 8.8 8.3 Immature Gran % 0.0 0.7 Neutrophils % 62.0 59.9 Band Neutrophils % 13 Lymphocytes % 9.0 18.7 Atypical Lymphs % 5 Monocytes % 10.0 15.1 Eosinophils % 1.0 4.7 Basophils % 0.0 0.9 Nucleated RBC % 0.0 0.0 Absolute Neutrophils 4.56 2.70 Absolute Lymphocytes 0.85 L 0.84 L Absolute Monocytes 0.61 0.68 Absolute Eosinophils 0.06 0.21 Absolute Basophils 0.00 0.04 RBC Morphology See Below Anisocytosis 1+ Sodium 140 140 Potassium 4.1 4.4 Chloride 99 101 Carbon Dioxide 30.0 36.0 H Anion Gap 11.0 3.0 BUN 26 H 20 H Creatinine 1.9 H 1.6 H Est GFR (CKD-EPI 2020) 37.25 45.78 Glucose 139 H 118 H Calcium 9.3 8.9 Magnesium 2.1 Total Bilirubin 0.4 0.3 AST 23 19 ALT 28 24 Alkaline Phosphatase 93 80 Total Protein 7.7 6.9 Albumin 3.0 L 2.6 L PAWSS Have you Been Recently Intoxicated or Drunk Within the Last 30 days?: No Have you Ever Experienced Previous Episodes of Alcohol Withdrawal?: No Have you ever Experienced Withdrawal Seizures?: No Have you ever Experienced Delirium Tremens(DT)s?: No Have you ever undergone Alcohol Rehabilitation Treatment (i.e, inpt ot outpatient treatment programs)?: No Have you ever Experienced Blackouts?: No Have you ever Combined Alcohol with other Downers within the last 90 days?: No Have you ever Combined Alcohol with any other Substance of Abuse during the last 90 days?: No Positive Blood Alcohol level on Presentation? [PCS.BAL]: No Evidence of Increased Autonomic Activity (i.e. HR>120, tremor, sweating, agitation, nausea)?: No Result: 0 Time Spent with Patient Time Spent with Patient: 25-34 minutes Time was spent: preparing to see the patient(eg.review tests), referring, communicating with other health ambulatory care nurse and counseling the patient
--- NOTE | 2025-02-11 07:37 | W.ANESPRE ---
General Info Height: 5 ft 6 in Weight: 107.1 kg Body Mass Index (BMI): 38.1 Surgical Procedure: Operation Date: 02/11/25 10:50 Proposed Procedure Side Surgeon p Colonoscopy/Gastroscopy Orly De Jesus MD Meds Allergies and Home Medications Allergies Allergy/AdvReac Type Severity Reaction Status Date / Time Penicillins AdvReac Skin Rash Verified 02/09/25 13:34 Home Medication ?Medication ?Instructions ?Recorded glucosamine 500 [id number] 1 tab PO DAILY 04/16/23 no1 416.6 mg-C 20 [id number] tablet metformin 500 mg tablet 500 mg PO BID 04/16/23 semaglutide 2 mg/dose (8 mg/3 mL) 2 mg subcut QWEEK 04/16/23 subcutaneous pen injector (Ozempic) sildenafil 100 mg tablet 100 mg PO DAILY PRN 04/16/23 tamsulosin 0.4 mg capsule 0.8 mg PO QHS 04/16/23 amiodarone 200 mg tablet 200 mg PO DAILY 04/22/23 apixaban 5 mg tablet 5 mg PO BID 04/22/23 clopidogrel 75 mg tablet 75 mg PO DAILY 04/22/23 empagliflozin 10 mg tablet 10 mg PO DAILY 04/22/23 furosemide 40 mg tablet 40 mg PO DAILY 04/22/23 pantoprazole 40 mg tablet,delayed 40 mg PO DAILY 04/22/23 release rosuvastatin 40 mg tablet 40 mg PO DAILY 04/22/23 albuterol sulfate 90 mcg/actuation 2 inh inhalation Q6H PRN 07/06/24 breath activated powder inhaler gabapentin 100 mg capsule 100 mg PO DAILY 07/06/24 magnesium chloride 64 mg 64 mg PO DAILY 07/06/24 tablet,extended release nitroglycerin 0.4 mg sublingual 0.4 mg sublingual Q5M PRN 07/06/24 tablet omeprazole 20 mg capsule,delayed 20 mg PO DAILY 07/06/24 release spironolactone 25 mg tablet 25 mg PO DAILY 07/06/24 tiotropium 2.5 mcg-olodaterol 2.5 2 puff inhalation DAILY 07/06/24 mcg/actuation mist for inhalation (Stiolto Respimat) metoprolol succinate 100 mg 200 mg PO DAILY 12/04/24 tablet,extended release 24 hr (Toprol XL) melatonin 3 mg capsule 3 mg PO HS PRN #30 caps 12/07/24 fluticasone 100 mcg-salmeterol 50 2 inh inhalation BID 01/06/25 mcg/dose blistr powdr for inhalation (Advair Diskus) fluticasone 500 mcg-salmeterol 50 1 inh inhalation DAILY 01/06/25 mcg/dose blistr powdr for inhalation meloxicam 15 mg tablet 15 mg PO QHS 01/06/25 sacubitril 49 mg-valsartan 51 mg 1 tab PO BID 01/06/25 tablet (Entresto) albuterol sulfate 90 mcg/actuation 2 inh inhalation Q6H PRN 02/09/25 aerosol inhaler fluticasone propionate 230 2 puff inhalation BID 02/09/25 mcg-salmeterol 21 mcg/actuation HFA inhaler (Advair HFA) metformin 500 mg tablet,extended 1,500 mg PO DAILY 02/09/25 release 24 hr trazodone 50 mg tablet 50 mg PO DAILY 02/09/25 Current Visit Medications: Current Medications Generic Name Dose Route Start Last Admin Trade Name Freq PRN Reason Stop Dose Admin Acetaminophen 0 mg 02/09/25 15:55 Acetaminophen 325 Mg Tab PO Q4H PRN PRN Al Hydrox/Mg Hydrox/Simethicone 30 ml 02/09/25 15:55 Mylanta Suspension 30 Ml Cup PO Q2H PRN PRN Albuterol Sulfate 2 puff 02/09/25 19:04 Albuterol Hfa 6.7 Gm 200 Puff Inh IH Q6H PRN PRN Amiodarone HCl 200 mg 02/10/25 08:30 02/10/25 08:05 Amiodarone 200 Mg Tab PO 200 mg DAILY AMANDA Administration Budesonide/Formoterol Fumarate 2 puff 02/10/25 20:00 02/10/25 20:11 Budesonide/Formoterol 160/4.5 6 Gm 60 Puff Inh IH 2 puffs BID AMANDA Administration Docusate Sodium 100 mg 02/09/25 15:55 Docusate Sodium 100 Mg Cap PO TID PRN PRN Empagliflozin 10 mg 02/10/25 08:30 02/10/25 08:06 Empaglifozin 10 Mg Tab PO 10 mg DAILY AMANDA Administration Gabapentin 100 mg 02/10/25 08:30 02/10/25 08:29 Gabapentin 100 Mg Cap PO Not Given DAILY [facility] Glucosamine/Chondroitin 1 cap 02/11/25 08:30 Glucosamine/Chondroitin Cap PO DAILY [facility] Norepinephrine Bitartrate 8 mg in 250 mls @ 0 mls/hr 02/09/25 15:00 02/11/25 04:43 IV 0 mls/hrs INFUSION AMANDA 0 mls/hr Protocol Titration Per Protocol Sodium Chloride 1,000 mls @ 150 mls/hr 02/09/25 21:15 02/11/25 02:45 Saline 1000ml Bag IV 0 mls/hr INFUSION AMANDA Infusion Magnesium Chloride 64 mg 02/10/25 08:30 02/10/25 08:08 Magnesium Chloride 64 Mg Tabcr PO 64 mg DAILY AMANDA Administration Magnesium Hydroxide 30 ml 02/09/25 15:55 Milk Of Magnesia 30 Ml Cup PO DAILY PRN PRN Melatonin 3 mg 02/09/25 19:06 Melatonin 3 Mg Tab PO HS PRN PRN Meloxicam 15 mg 02/09/25 20:00 02/10/25 20:19 Meloxicam 15 Mg Tab PO 15 mg HS AMANDA Administration Metoprolol Succinate 200 mg 02/10/25 08:30 02/10/25 08:29 Metoprolol Cr 100 Mg Tabcr PO Not Given DAILY [facility] Nitroglycerin 0.4 mg 02/10/25 14:26 Nitroglycerin 0.4 Mg Tab SL Q5 MIN PRN X3 PRN Pantoprazole Sodium 40 mg 02/10/25 07:30 02/10/25 07:46 Pantoprazole 40 Mg Tabcr PO 40 mg 0730 AMANDA Administration Pt's Own Semaglutide 1 each 02/11/25 08:30 [Ozempic] 2 Mg/Dose SC Pen Inj Th [facility] Polyethylene Glycol 17 gm 02/09/25 15:55 Polyethylene Glycol 3350 17 Gm Packet PO DAILY PRN PRN Constipation Rosuvastatin Calcium 40 mg 02/10/25 08:30 02/10/25 08:07 Rosuvastatin 20 Mg Tab PO 40 mg DAILY AMANDA Administration Sodium Chloride 0 ml 02/09/25 12:40 02/10/25 15:03 Normal Saline Flush 10 Ml Syr IVP 10 ml PRN PRN Administration Sodium Cl/Sod Bicarb/Potass Cl/PEG 4,000 ml 02/10/25 12:00 02/10/25 13:21 Gavilyte-G 4000 Ml Btl PO 4 l DIRECTED AMANDA Administration Tamsulosin HCl 0.8 mg 02/09/25 20:00 02/10/25 20:19 Tamsulosin 0.4 Mg Capcr PO 0.8 mg HS AMANDA Administration Tiotropium [place]/Olodaterol 2 puff 02/10/25 08:30 02/10/25 09:26 Tiotropium/Olodaterol 10 Puff Inhaler IH 2 inh DAILY AMANDA Administration Trazodone HCl 50 mg 02/10/25 08:30 02/10/25 08:05 Trazodone 50 Mg Tab PO 50 mg DAILY AMANDA Administration PFSH Active Problems Active Problems: Problem Status Onset Code Anticoagulated Acute Z79.01 Umbilical hernia without obstruction and without gangrene Acute K42.9 BPH (benign prostatic hyperplasia) Chronic N40.0 GIB (gastrointestinal bleeding) Chronic K92.2 Altered mental status Acute R41.82 Elevated troponin Acute R79.89 Acute respiratory failure with hypoxia and hypercarbia Acute J96.01, J96.02 Restless leg syndrome Acute G25.81 Presence of cardiac defibrillator Acute Z95.810 Overweight Acute E66.3 NSTEMI (non-ST elevated myocardial infarction) Acute I21.4 Insomnia Acute G47.00 Hypertensive disorder Chronic I10 COPD with chronic bronchitis Acute J44.89 Bilateral cataracts Acute H26.9 Atrial flutter Acute I48.92 Atherosclerotic coronary vascular disease Acute I25.10 Acid reflux Chronic K21.9 Hyperlipidemia Acute E78.5 Diabetes mellitus Chronic E11.9 Medical History Medical History HTN (hypertension) with goal to be determined Paroxysmal A-fib COPD (chronic obstructive pulmonary disease) DM type 2 (diabetes mellitus, type 2) ASCVD (arteriosclerotic cardiovascular disease) Known LAD stenosis s/p PCIx2 to [employer]ILROAD [employer] [place] [facility] to LAD RH ICD (implantable cardioverter-defibrillator) in place Medtronic cobalt placed [place] [facility]/15[place]23 CHF with cardiomyopathy (HFpEF) heart failure with preserved ejection fraction 04/15 EF 17% per [facility] Chronic GERD Elevated troponin Acute exacerbation of chronic obstructive pulmonary disease (COPD) Acute respiratory failure with hypoxia and hypercapnia Tobacco Smoking/Tobacco Use Status: Former Tobacco Use Alcohol Alcohol Intake: current Alcohol intake frequency: 3 or more drinks per day Substance Use Substance use type: does not use Vital Signs and Lab Results Vital Signs Most Recent Vital Signs in EMR: Most Recent Vital Signs Temp Pulse Resp BP Pulse Ox 36.8 C 106 H 20 118/59 L 96 02/10/25 14:56 02/11/25 04:30 02/11/25 04:30 02/11/25 04:30 02/11/25 05:05 Point of Care Results Point of Care Results: Finger Stick Blood Glucose 97 02/10/25 20:21 Lab Results 02/11/25 05:35 02/11/25 05:35 Blood Type / Crossmatch: Antibody Screen NEGATIVE 02/09/25 Crossmatch See Detail 02/09/25 Complete Blood Count: WBC, (4.4-10.8) 4.50 10^3/uL Today, 05:35 RBC, (4.36-5.78) 4.69 10^6/uL Today, 05:35 Hgb, (13.5-17.5) 12.9 g/dL L Today, 05:35 Hct, (40.0-50.0) 42.7 % Today, 05:35 Plt Count, (130-400) 192 10^3/uL Today, 05:35 VBG Lactate, (<or=2.0) 1.4 mmol/L 02/09/25, 12:13 Complete Metabolic Panel: Sodium, (136-145) 140 mmol/L Today, 05:35 Potassium, (3.5-5.1) 4.4 mmol/L Today, 05:35 Chloride, (98-107) 101 mmol/L Today, 05:35 Carbon Dioxide, (21.0-32.0) 36.0 mmol/L H Today, 05:35 BUN, (7-18) 20 mg/dL H Today, 05:35 Creatinine, (0.70-1.30) 1.6 mg/dL H Today, 05:35 Est GFR (CKD-EPI 2020), (mL/min/1.73m2) 45.78 Today, 05:35 Magnesium, (1.8-2.4) 2.1 mg/dL 02/10/25, 16:47 Calcium, (8.5-10.1) 8.9 mg/dL Today, 05:35 Ionized Calcium Pending 02/10/25, 16:47 Albumin, (3.4-5.0) 2.6 g/dL L Today, 05:35 Glucose, (74-106) 118 mg/dL H Today, 05:35 Liver Function Panel: ALT, (16-63) 24 U/L Today, 05:35 AST, (15-37) 19 U/L Today, 05:35 Coagulation Panel: INR, (0.9-1.1) 1.2 H 02/09/25, 12:42 PT, (9.1-11.1) 11.7 sec H 02/09/25, 12:42 APTT, (20.6-30.2) 30.2 sec 02/09/25, 12:42 Pancreas Panel: Lipase, (<78) 23 U/L 02/09/25, 12:13 Anesthesia Assessment and Plan Anesthesia Plan Resuscitation Status: Full Code Anesthesia Technique: General Anesthesia Airway Planned: Natural Airway Monitors Used: Standard Monitors Preoperative Comments:: 70 yo for EGD/colo. Admitted on 02/09 with bloody stool. Spo2 88-89% in the ED. 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 empagliflozin, lasix, spironolactone, entresto. Gets winded with some tasks. [place] [facility] LVEF [place] 17%), HTN, pAfib (amiodarone, apixaban), COPD (fluticasone, salmeterol, albuterol, stiolto), reflux, DM (semaglutide, metformin), RLS, anxiety, former smoker, daily EtOH. ECHO: LVEF 50-55%, mild MR. Previous [place]es: [place] [facility] masked with OPA, LMA5
[2025-02-11] MEDS: Budesonide/Formoterol 160/4.5 6 GM 60 PUFF INH IH ×2 (07:53→20:53)
[2025-02-11] MEDS: Tiotropium/Olodaterol 10 PUFF INHALER 2 PUFF IH (07:53)
--- NOTE | 2025-02-11 08:01 | W.COLOREPORT ---
Date of service: 02/11/25 Time of Service: 08:02 Colonoscopy Report Date of procedure: 02/11/25 Pre-op diagnosis general: screening, remote history of polyps >10y ago Post-op diagnosis procedure note: same (1. ascending colon polyp. 2. descending colon polyp. ) Procedure: colonoscopy with cold forceps polypectomy x2 Surgeon: Orly De Jesus Anesthesia Type: General:No Airway Estimated blood loss (mL): 5 Pathology: other (1. ascending colon polyp. 2. descending colon polyp) Complications: None Disposition: same day Indications: screening for colorectal cancer Prep: Miralax/Dulcolax (Excellent) Procedure Description: Informed consent was obtained and the patient was taken to the procedure area. The patient was placed in left lateral decubitus position on the procedure table. Timeout was performed. Anesthesia was induced. A lubricated colonoscope was inserted through the anus and passed to the cecum. The cecum was identified by the ileocecal valve and the appendiceal orifice. The scope was then slowly withdrawn and the colonic and rectal mucosa examined. ascending colon polyp 5mm sessile excised piecemeal with cold forceps. descending colon polyp 8mm sessile excised piecemeal with cold forceps. No diverticulosis was seen. The scope was retroflexed in the anorectal junction examined. Uncomplicated internal hemorrhoids present. Assessment and plan; Two polyps <1cm with classic adenoma appearance. Next colonoscopy will be due in 5 years.
--- NOTE | 2025-02-11 08:06 | W.PM.DSUDISC ---
Date of service: 02/11/25 Discharge Plan Discharge Details Reason For Visit: GIB Admit Date/Time: 02/09/25 15:55 Admit Provider: Aris Guevara Attending Provider: Aris Guevara Primary Care Provider: Jc Morales Home Meds and New Rx's Prescriptions: No Action meloxicam 15 mg tablet 15 mg PO QHS Patient Comments: 01/06/25 per pt med list RH fluticasone propion-salmeterol 500-50 mcg/dose blister with device 1 inh inhalation DAILY fluticasone propion-salmeterol [Advair Diskus] 100-50 mcg/dose blister with device 2 inh inhalation BID Patient Comments: 01/06/25 per pt med list. RH Entresto 49-51 mg tablet 1 tab PO BID [id number]-[id number]-bosw 500-416.6-20 mg tablet 1 tab PO DAILY Patient Comments: 04/16/23 per pcp take 2 daily RH sildenafil 100 mg tablet 100 mg PO DAILY PRN Rx Instructions: administer 30 minutes to 4 hours before activity metformin 500 mg tablet 500 mg PO BID tamsulosin 0.4 mg capsule 0.8 mg PO QHS Ozempic 2 mg/dose (8 mg/3 mL) pen injector 2 mg subcut QWEEK amiodarone 200 mg tablet 200 mg PO DAILY apixaban 5 mg tablet 5 mg PO BID clopidogrel 75 mg tablet 75 mg PO DAILY empagliflozin 10 mg tablet 10 mg PO DAILY furosemide 40 mg tablet 40 mg PO DAILY pantoprazole 40 mg tablet,delayed release (DR/EC) 40 mg PO DAILY rosuvastatin 40 mg tablet 40 mg PO DAILY spironolactone 25 mg tablet 25 mg PO DAILY albuterol sulfate 90 mcg/actuation aerosol powdr breath activated 2 inh inhalation Q6H PRN gabapentin 100 mg capsule 100 mg PO DAILY magnesium chloride 64 mg tablet extended release 64 mg PO DAILY nitroglycerin 0.4 mg tablet, sublingual 0.4 mg sublingual Q5M PRN Rx Instructions: do not exceed 3 doses per episode omeprazole 20 mg capsule,delayed release(DR/EC) 20 mg PO DAILY Stiolto Respimat 2.5-2.5 mcg/actuation mist 2 puff inhalation DAILY metoprolol succinate [Toprol XL] 100 mg tablet extended release 24 hr 200 mg PO DAILY melatonin 3 mg capsule 3 mg PO HS PRNQty: 30 0RF albuterol sulfate 90 mcg/actuation HFA aerosol inhaler 2 inh INHALATION Q6H PRN Patient Comments: INHALE TWO PUFFS BY MOUTH EVERY 6 HOURS trazodone 50 mg tablet 50 mg PO DAILY fluticasone propion-salmeterol [Advair HFA] 230-21 mcg/actuation HFA aerosol inhaler 2 puff INHALATION BID Patient Comments: INHALE TWO PUFFS BY MOUTH TWICE A DAY RINSE THROAT AND MOUTH AFTER USE metformin 500 mg tablet extended release 24 hr 1,500 mg PO DAILY Patient Comments: TAKE THREE TABLETS BY MOUTH EVERY DAY DS: Diagnosis Discharge Diagnosis (1) GIB (gastrointestinal bleeding): Status: Chronic (2) Anticoagulated: Status: Acute
[2025-02-11] MEDS: Amiodarone 200 MG TAB PO (08:20)
[2025-02-11] MEDS: Magnesium Chloride 64 MG TABCR PO (08:20)
[2025-02-11] MEDS: Metoprolol CR 100 MG TABCR 200 MG PO (08:20)
[2025-02-11] MEDS: Glucosamine/Chondroitin CAP 1 CAP PO (08:21)
[2025-02-11] MEDS: Rosuvastatin 20 MG TAB 40 MG PO (08:21)
[2025-02-11] MEDS: Pantoprazole 40 MG TABCR PO (08:22)
[2025-02-11] MEDS: traZODone 50 MG TAB PO (08:23)
[2025-02-11] MEDS: Empaglifozin 10 MG TAB PO (08:23)
--- NOTE | 2025-02-11 09:31 | PT.INIE ---
PT Notes Visit Reasons: GIB Physical Therapy Inpatient Initial Evaluation Date: 02/11/2025 Referring Doctor: Aris Guevara MD PT Orders: PT CONSULT: Eval/Treat Precautions: Fall. Standard. Activity as tolerated. Patient Profile/Admitting Diagnosis: Jonny is a 70-year-old male admitted for management of GI bleeding, HLD, HTN, ASCVD, PAF, and DM type II. He came to the ED on 02/09/2025 with chief complaints of bright red blood per rectum, multiple diarrhea episodes, minimal abdominal pain, and generalized weakness. PMHX: All Active Problems (Updated 02/09/25 @ 16:37 by Aris Guevara MD) GIB (gastrointestinal bleeding) (Chronic) Altered mental status (Acute) Elevated troponin (Acute) Acute respiratory failure with hypoxia and hypercarbia (Acute) Restless leg syndrome (Acute) Presence of cardiac defibrillator (Acute) Overweight (Acute) NSTEMI (non-ST elevated myocardial infarction) (Acute) Insomnia (Acute) Hypertensive disorder (Chronic) DM type 2 (diabetes mellitus, type 2) (Acute) COPD with chronic bronchitis (Acute) Chronic GERD (Acute) CHF with cardiomyopathy (Acute) Bilateral cataracts (Acute) Atrial flutter (Acute) Atherosclerotic coronary vascular disease (Acute) Paroxysmal A-fib (Acute) ICD (implantable cardioverter-defibrillator) in place (Acute) Medtronic cobalt placed at [facility] [place] 04/15/23(HFpEF) heart failure with preserved ejection fraction (Acute) 04/15 EF 17% per [facility] [place] RH ASCVD (arteriosclerotic cardiovascular disease) (Acute) Known LAD stenosis s/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 Lives with in a handicap-accessible mobile home. Does most of the cooking at home. DAughter lives close by and has been supportive. Has a ramp to enter. Equipment Owned/DME: FWW, SPC, wheelchair Subjective: Did not report of any bleeding through rectum today. [place] much better. Was minimally short of breath after the walk but felt much better with rest Objective: General Observation: Telemetry monitoring in place. IV access through the R UE. Daughter was present in room throughout session and provided wheelchair follow as oxygen was needed throughout session. Mental Status: Alert and oriented as to person, place, time, and purpose. Able to pay attention, focus, and respond appropriately. Pain: None reported Vital Signs: SAO2 above 90% on 1 L/minutes throughout ROM: Right Upper Extremity: Shoulder Flexion WFL. Shoulder abduction WFL. Elbow flexion WFL. Wrist flexion WFL. Functional opening and closing of hand WFL. Left Upper Extremity: Shoulder Flexion WFL. Shoulder abduction WFL. Elbow flexion WFL. Wrist flexion WFL. Functional opening and closing of hand WFL. Right Lower Extremity: Hip flexion WFL. Hip abduction WFL. Knee flexion WFL. Ankle dorsiflexion WFL. Ankle plantarflexion WFL. Left Lower Extremity: Hip flexion WFL. Hip abduction WFL. Knee flexion WFL. Ankle dorsiflexion WFL. Ankle plantarflexion WFL. Strength: Right Upper Extremity: Shoulder flexors 4/5. Shoulder abductors 4/5. Elbow flexors 5/5. Elbow extensors 5/5. Tin Flipper strong. Left Upper Extremity: Shoulder flexors 4/5. Shoulder abductors 4/5. Elbow flexors 5/5. Elbow extensors 5/5. Tin Flipper strong. Right Lower Extremity: Hip flexors 4/5. Hip abductors 4/5. Knee flexors 5/5. Knee extensors 4/5. Ankle dorsiflexors 4/5. Ankle plantarflexors 4/5. Left Lower Extremity: Hip flexors 4/5. Hip abductors 4/5. Knee flexors 5/5. Knee extensors 4/5. Ankle dorsiflexors 4/5. Ankle plantarflexors 4/5. Bed Mobility/Transfers: Independent Gait: Facilitate safe and correct performance of level surface ambulation covering a distance of about 400 feet using no assistive device with just standby assist and minimal verbal cueing by PT for self pacing and directional changes only. Reciprocal swing through heel-toe gait pattern seen. Minimal shortness of breath resolved with seated rest. Balance: Static Sitting: Normal Dynamic Sitting: Normal Static Standing: Fair Dynamic Standing: Fair Special Tests: Mobility Limitations Standardized Measure [facility] AM-PAC 6 clicks Basic Mobility Inpatient Short Form: Raw Score: 24 CMS Score: 0% deficit THERA EX: Guided patient with safe and correct performance of seated exercises as follows: Deep breathing exercises with chest expansion techniques x 5 Seated marches x 10 Seated bilateral LAQs x 10 Deep breathing exercises with chest expansion techniques x 5 Seated hip abduction x 10 Deep breathing exercises with chest expansion techniques x 5 Informed Consent/Education: Patient was instructed in purpose of PT consult and plan of care. Agreeable to proceed with established PT POC to achieve personal goals. Assessment: Patient was able to tolerate unassisted ambulation on level surface of up about 400 feet with 1 L of oxygen/minute via NC. Wheelchair follow was provided for safety. Activity tolerance was minimally limited with minimal shortness of breath that resolved with seated rest. No ambulatory device needed. Session today included of physical therapy evaluation and functional mobility training using appropriate assistive device. Seated exercises were better tolerated with deep breathing exercises alongside chest expansion techniques. Patient presents with clinical signs and symptoms consistent with current/admitting diagnoses that have resulted to mobility limitations, gait instability, generalized weakness, and overall ADL decline as demonstrated by the following impairment level findings: 1. Impaired sitting/standing balance 2. Impaired activity tolerance 3. Shortness of breath Impairments are contributing to the following functional limitations: 1. Increased completion time for mobility ADL performance 2. Increased risk for falls 3. Difficulty with managing steps alone safely Patient is assessed as a 48415 moderate complexity based on the following: History: 70-year-old female with past medical history as indicated above Examination: Demonstrable impairment in strength, balance, and mobility level with underlying impairments and functional limitations as exhibited above Presentation: Stable Decision Makin moderate complexity Goals: Goals X1 week 1. Supine-Sit independent 2. Sit-Supine independent 3. Sit-Stand independent 4. Stand-Sit independent 5. Bed-Chair independent 6. Chair-Bed independent 7. Independent gait on level surface with use of no assistive device for at least 300 feet without report of pain nor dyspnea 8. Independent with home exercise program 9. Good static and dynamic standing balance/tolerance Plan of Care/Treatment Plan: 1-2x/day, 7 days/week x 1 week. Plan of care has been reviewed with the [employer]IN[employer] providing the service under Physical Therapy direction. Initiate Physical Therapy intervention for pain management as needed, strengthening, bed mobility, transfers, gait, stairs, and balance training. DISCHARGE RECOMMENDATIONS: PT TREATMENT CODE/TIME: 78640 x 20 minutes for 1 unit, 88547 x 10 minutes for 1 unit (9:31-10:01). Thank you for the opportunity to participate in the care of this patient. Katty Samano PT, DPT, CLT [facility] [place], [place]
--- NOTE | 2025-02-11 10:16 | PDOC.CMPRO ---
Date of service: 02/11/25 Time of Service: 10:16 Care Management Progress Note Progress Note Text Progress Note Text: Jonny was sitting up on the edge of his bed, visiting with his , when CM met with him. He had just met with the surgeon, and reported that the plan is to have an echo today, and then have a colonoscopy with the surgeon tomorrow. His colonoscopy was postponed for the echo due to his history of CHF and current hypotension, per report. He is currently on 2LO2, which he does not use at baseline. Jonny stated that he is independent at home, but is not very active. Jonny stated that he worked with PT today; PT recommended PT. He stated that he would prefer outpatient PT, as they live in a camper during the summer, and a mobile home in the winter, so space is tight. He is also not homebound, as he drives himself around, and reported that he would rather go to an appt out in the community. CM will continue to follow. Discharge Potential Discharge Needs: PCP F/U Appt and Surgical F/U Appt Anticipated Barriers to Discharge: None Identified Patient/Family Education Needs: Review discharge instructions, discuss Ask Me Three Transportation: Private vehicle Plan: Anticipate Robert will return home once medically cleared. He will follow up with his community providers and continue per his plan of care. Robert will transport via private vehicle with his . CM will continue to assess for discharge needs. Social Determinants of Health Screening Social Determinants of health last assessed in clinic: 02/11/25 Will the Patient Participate in the Screening?: Yes Do you worry about having a steady place to live?: no Problems where you live: no known problems In the past 12 months, have you had to go without electric, gas, oil or water in your home?: no 1. Within the past 12 months, we worried whether our food would run out before we got money to buy more.: Don't know/refused 2. Within the past 12 months, the food we bought just didn't last and we didn't have money to get more.: Don't know/refused Has lack of transportation kept you from medical appointments or from doing things needed for daily living?: no Has anyone in your life made you feel unsafe or unsupported?: no How hard is it for you to pay for the very basics like food, housing, medical care, and heating? Would you say it is:: Not hard at all Do you want help finding or keeping work or a job?: I do not need or want help If for any reason you need help with day-to-day activities such as bathing, preparing meals, shopping, managing finances, etc., do you get the help you need?: I don?t need any help How often do you feel lonely or isolated from those around you?: Never Do you speak a language other than Estonian at home?: No Does the patient want assistance with any of the above?: No
--- NOTE | 2025-02-11 11:26 | W.PM.PROGNOT ---
Date of Service Date of service: 02/11/25 Time of Service: 11:26 Assessment and Plan Assessment and plan (1) GIB (gastrointestinal bleeding): Status: Chronic Assessment and plan: - Patient presented with presumed lower GI bleed with bright red blood per rectum and hypotension requiring Levophed and 1 unit packed red blood cells - However, patient's hemoglobin was 12 in the emergency department, which is roughly patient's baseline - Hemoglobin has been stable since transfusion - Plan was for general surgery to do colonoscopy, however discussion with anesthesia and recommendation for updated echocardiogram in the setting of history of heart failure with current hypotension that does not completely fit patient's blood loss anemia - Depending on results of echocardiogram patient may receive colonoscopy tomorrow 02/11/2025 (2) HTN (hypertension) with goal to be determined: Assessment and plan: Patient is on multiple medications for hypertension including beta-donna ARB Aldactone. Restart these meds when tolerating p.o. 02/10/25 Pt remains hypotensive. Will hold anti-hypertensives for now as pt is on pressure support as well. (will c/w bb 2/2 tachycardia) (3) ASCVD (arteriosclerotic cardiovascular disease): Assessment and plan: Do not see any EKG been ordered in the ED will order it. 02/10/25 (4) CHF (congestive heart failure): Status: Chronic Assessment and plan: - History of significantly reduced EF down to 17% in [facility] and March 2023 likely resulting in ICD placement - Most recent echocardiogram from November 2024 shows EF of 50 to 55% with no wall motion abnormalities - However, given that patient required pressor support for hypotension does not does not completely fit blood loss anemia as noted above, patient will have echocardiogram to assess if colonoscopy at this facility would be appropriate - Hold clopidogrel, Lasix, Entresto, spironolactone until blood pressures improve (5) ICD (implantable cardioverter-defibrillator) in place: Assessment and plan: =Noted. Notes from 01/06/2025 by cardiology has been reviewed. Pacemaker seems to be working appropriately. (6) Paroxysmal A-fib: Assessment and plan: - Holding home Eliquis given acute GI bleed as noted above - Continue home amiodarone, Toprol-XL (7) DM type 2 (diabetes mellitus, type 2): Assessment and plan: -hold home metformin (8) COPD (chronic obstructive pulmonary disease): Assessment and plan: -without acute exacerbation -continue home inhaler regimen (9) BPH (benign prostatic hyperplasia): Status: Chronic Assessment and plan: c/w flomax (10) Hyperlipidemia: Status: Acute Assessment and plan: -Continue with statins when tolerating p.o. Subjective Subjective Interval history since last seen: Patient states that he is feeling better today and is looking forward to having his colonoscopy. Otherwise he has no other complaints or concerns at this time. Exam Narrative Exam Narrative: Well-appearing older gentleman sitting up in the bed in no acute distress, ANO x 4, heart regular rhythm, lungs clear to auscultation bilaterally, abdomen soft, nontender, nondistended Objective Last Vital Signs Temp 99.1 F 02/11/25 11:23 Pulse 95 H 02/11/25 11:23 Resp 17 02/11/25 11:23 BP 98/64 L 02/11/25 11:23 Pulse Ox 96 02/11/25 11:23 Laboratory Results - last 24 hr 02/10/25 02/11/25 16:47 05:35 WBC 6.08 4.50 RBC 5.07 4.69 Hgb 14.1 12.9 L Hct 45.4 42.7 MCV 90 91 MCH 27.8 27.5 MCHC 31.1 L 30.2 L RDW 16.5 H 16.5 H Plt Count 227 192 MPV 8.8 8.3 Immature Gran % 0.0 0.7 Neutrophils % 62.0 59.9 Band Neutrophils % 13 Lymphocytes % 9.0 18.7 Atypical Lymphs % 5 Monocytes % 10.0 15.1 Eosinophils % 1.0 4.7 Basophils % 0.0 0.9 Nucleated RBC % 0.0 0.0 Absolute Neutrophils 4.56 2.70 Absolute Lymphocytes 0.85 L 0.84 L Absolute Monocytes 0.61 0.68 Absolute Eosinophils 0.06 0.21 Absolute Basophils 0.00 0.04 RBC Morphology See Below Anisocytosis 1+ Sodium 140 140 Potassium 4.1 4.4 Chloride 99 101 Carbon Dioxide 30.0 36.0 H Anion Gap 11.0 3.0 BUN 26 H 20 H Creatinine 1.9 H 1.6 H Est GFR (CKD-EPI 2020) 37.25 45.78 Glucose 139 H 118 H Calcium 9.3 8.9 Magnesium 2.1 Total Bilirubin 0.4 0.3 AST 23 19 ALT 28 24 Alkaline Phosphatase 93 80 Total Protein 7.7 6.9 Albumin 3.0 L 2.6 L PAWSS Have you Been Recently Intoxicated or Drunk Within the Last 30 days?: No Have you Ever Experienced Previous Episodes of Alcohol Withdrawal?: No Have you ever Experienced Withdrawal Seizures?: No Have you ever Experienced Delirium Tremens(DT)s?: No Have you ever undergone Alcohol Rehabilitation Treatment (i.e, inpt ot outpatient treatment programs)?: No Have you ever Experienced Blackouts?: No Have you ever Combined Alcohol with other Downers within the last 90 days?: No Have you ever Combined Alcohol with any other Substance of Abuse during the last 90 days?: No Positive Blood Alcohol level on Presentation? [PCS.BAL]: No Evidence of Increased Autonomic Activity (i.e. HR>120, tremor, sweating, agitation, nausea)?: No Result: 0 Time Spent with Patient Time Spent with Patient: >50 minutes Time was spent: preparing to see the patient(eg.review tests), obtaining and/or reviewing separately otained hiistory, ordering medications,tests, procedures, referring, communicating with other health healthcare administration intern, indepentently interpreting results, counseling the patient and care coordination
--- NOTE | 2025-02-11 13:09 | ANES.CON_ITS ---
General Date of Service Date of Service: 02/11/25 Reason for Consult Requesting Provider: Orly De Jesus How Consult Conducted:: Chart Review (Seen at bedside) Reason for Consult:: Critical illness and significant past medical history. Consult Recommendation after Review:: Following up with Gen/Surge consult recommendation: I would like to see an Echocardiogram. Patient has required levophed for pressure management with a fairly consistent H/H; with his considerable cardiac history and these new changes I think this is reasonable prior to any anesthetic. Height: 5 ft 6 in Weight: 107.1 kg Body Mass Index (BMI): 38.1 Meds Allergies and Home Medications Allergies Allergy/AdvReac Type Severity Reaction Status Date / Time Penicillins AdvReac Skin Rash Verified 02/09/25 13:34 Home Medication ?Medication ?Instructions ?Recorded glucosamine 500 fu-lwnljwxso-atf 1 tab PO DAILY no1 416.6 mg-C 20 [id number] tablet metformin 500 mg tablet 500 mg PO BID 04/16/23 semaglutide 2 mg/dose (8 mg/3 mL) 2 mg subcut QWEEK subcutaneous pen injector (Ozempic) sildenafil 100 mg tablet 100 mg PO DAILY PRN 04/16/23 tamsulosin 0.4 mg capsule 0.8 mg PO QHS 04/16/23 amiodarone 200 mg tablet 200 mg PO DAILY 04/22/23 apixaban 5 mg tablet 5 mg PO BID 04/22/23 clopidogrel 75 mg tablet 75 mg PO DAILY 04/22/23 empagliflozin 10 mg tablet 10 mg PO DAILY 04/22/23 furosemide 40 mg tablet 40 mg PO DAILY 04/22/23 pantoprazole 40 mg tablet,delayed 40 mg PO DAILY 04/22 release rosuvastatin 40 mg tablet 40 mg PO DAILY 04/22/23 albuterol sulfate 90 mcg/actuation 2 inh inhalation Q6 H PRN 07/06/24 breath activated powder inhaler gabapentin 100 mg capsule 100 mg PO DAILY 07/06/24 magnesium chloride 64 mg 64 mg PO DAILY 07/06/24 tablet,extended release nitroglycerin 0.4 mg sublingual 0.4 mg sublingual Q5M PRN 07/06/24 tablet omeprazole 20 mg capsule,delayed 20 mg PO DAILY release spironolactone 25 mg tablet 25 mg PO DAILY 07/06/24 tiotropium 2.5 mcg-olodaterol 2.5 2 puff inhalation DA DESIRAE 07/06/24 mcg/actuation mist for inhalation (Stiolto Respimat) metoprolol succinate 100 mg 200 mg PO DAILY 12/04/24 tablet,extended release 24 hr (Toprol XL) melatonin 3 mg capsule 3 mg PO HS PRN #30 caps 11/22 12/16 fluticasone 100 mcg-salmeterol 50 2 inh inhalation BID 01/06/25 mcg/dose blistr powdr for inhalation (Advair Diskus) fluticasone 500 mcg-salmeterol 50 1 inh inhalation KAVEH LY 01/06/25 mcg/dose blistr powdr for inhalation meloxicam 15 mg tablet 15 mg PO QHS 01/06/25 sacubitril 49 mg-valsartan 51 mg 1 tab PO BID 01/06/25 tablet (Entresto) albuterol sulfate 90 mcg/actuation 2 inh inhalation Q6 H PRN 02/09/25 aerosol inhaler fluticasone propionate 230 2 puff inhalation BID 02/09 mcg-salmeterol 21 mcg/actuation HFA inhaler (Advair HFA) metformin 500 mg tablet,extended 1,500 mg PO DAILY release 24 hr trazodone 50 mg tablet 50 mg PO DAILY 02/09/25 Current Visit Medications: Current Medications Generic Name Dose Route Start Last Admin Trade Name Freq PRN Reason Stop Dose Admin Acetaminophen 0 mg 02/09/25 15:55 Acetaminophen 325 Mg Tab PO Q4H PRN PRN Al Hydrox/Mg Hydrox/Simethicone 30 ml 02/09/25 15:55 Mylanta Suspension 30 Ml Cup PO Q2H PRN PRN Albuterol Sulfate 2 puff 02/09/25 19:04 Albuterol Hfa 6.7 Gm 200 Puff Inh IH Q6H PRN PRN Amiodarone HCl 200 mg 02/10/25 08:30 02/11/25 08:20 Amiodarone 200 Mg Tab PO 200 mg DAILY AMANDA Administration Budesonide/Formoterol Fumarate 2 puff 02/10/25 20:00 02/11/25 07:53 Budesonide/Formoterol 160/4.5 6 Gm 60 Puff Inh IH 2 puffs BID AMANDA Administration Docusate Sodium 100 mg 02/09/25 15:55 Docusate Sodium 100 Mg Cap PO TID PRN PRN Empagliflozin 10 mg 02/10/25 08:30 02/11/25 08:23 Empaglifozin 10 Mg Tab PO 10 mg DAILY AMANDA Administration Gabapentin 100 mg 02/10/25 08:30 02/11/25 09:06 Gabapentin 100 Mg Cap PO Not Given DAILY AMANDA Glucosamine/Chondroitin 1 cap 02/11/25 08:30 02/11/25 08:21 Glucosamine/Chondroitin Cap PO 1 cap DAILY [facility] Administration Norepinephrine Bitartrate 8 mg in 250 mls @ 0 mls/hr 02/09/25 15:00 02/11/25 04:43 IV 0 mls/hrs INFUSION AMANDA 0 mls/hr Protocol Titration Per Protocol Sodium Chloride 1,000 mls @ 150 mls/hr 02/09/25 21:15 02/11/25 02:45 Saline 1000ml Bag IV 0 mls/hr INFUSION AMANDA Infusion Magnesium Chloride 64 mg 02/10/25 08:30 02/11/25 08:20 Magnesium Chloride 64 Mg Tabcr PO 64 mg DAILY [facility] Administration Magnesium Hydroxide 30 ml 02/09/25 15:55 Milk Of Magnesia 30 Ml Cup PO DAILY PRN PRN Melatonin 3 mg 02/09/25 19:06 Melatonin 3 Mg Tab PO HS PRN PRN Meloxicam 15 mg 02/09/25 20:00 02/10/25 20:19 Meloxicam 15 Mg Tab PO 15 mg HS AMANDA Administration Metoprolol Succinate 200 mg 02/10/25 08:30 02/11/25 08:20 Metoprolol Cr 100 Mg Tabcr PO 200 mg DAILY AMANDA Administration Nitroglycerin 0.4 mg 02/10/25 14:26 Nitroglycerin 0.4 Mg Tab SL Q5 MIN PRN X3 PRN Pantoprazole Sodium 40 mg 02/10/25 07:30 02/11/25 08:22 Pantoprazole 40 Mg Tabcr PO 40 mg 0730 AMANDA Administration Pt's Own Semaglutide 1 each 02/11/25 08:30 [Ozempic] 2 Mg/Dose SC Pen Inj Th [facility] Polyethylene Glycol 17 gm 02/09/25 15:55 Polyethylene Glycol 3350 17 Gm Packet PO DAILY PRN PRN Constipation Rosuvastatin Calcium 40 mg 02/10/25 08:30 08/21/25 08:21 Rosuvastatin 20 Mg Tab PO 40 mg DAILY AMANDA Administration Sodium Chloride 0 ml 02/09/25 12:40 02/10/25 15:03 Normal Saline Flush 10 Ml Syr IVP 10 ml PRN PRN Administration Sodium Cl/Sod Bicarb/Potass Cl/PEG 4,000 ml 02/10/25 12:00 02/10/25 13:21 Gavilyte-G 4000 Ml Btl PO 4 l DIRECTED AMANDA Administration Tamsulosin HCl 0.8 mg 02/09/25 20:00 02/10/25 20:19 Tamsulosin 0.4 Mg Capcr PO 0.8 mg HS AMANDA Administration Tiotropium Lynch/Olodaterol 2 puff 02/10/25 08:30 02/11/25 07:53 Tiotropium/Olodaterol 10 Puff Inhaler IH 2 inh DAILY AMANDA Administration Trazodone HCl 50 mg 02/10/25 08:30 02/11/25 08:23 Trazodone 50 Mg Tab PO 50 mg DAILY AMANDA Administration PFSH Active Problems Active Problems: Problem Status Onset Code CHF (congestive heart failure) Chronic I50.9 Anticoagulated Acute Z79.01 Umbilical hernia without obstruction and without gangrene Acute K42.9 BPH (benign prostatic hyperplasia) Chronic N40.0 GIB (gastrointestinal bleeding) Chronic K92.2 Altered mental status Acute R41.82 Elevated troponin Acute R79.89 Acute respiratory failure with hypoxia and hypercarbia Acute J96.01, J96.02 Restless leg syndrome Acute G25.81 Presence of cardiac defibrillator Acute Z95.810 Overweight Acute E66.3 NSTEMI (non-ST elevated myocardial infarction) Acute I21.4 Insomnia Acute G47.00 Hypertensive disorder Chronic I10 COPD with chronic bronchitis Acute J44.89 Bilateral cataracts Acute H26.9 Atrial flutter Acute I48.92 Atherosclerotic coronary vascular disease Acute I25.10 Acid reflux Chronic K21.9 Hyperlipidemia Acute E78.5 Diabetes mellitus Chronic E11.9 Medical History Medical History HTN (hypertension) with goal to be determined Paroxysmal A-fib COPD (chronic obstructive pulmonary disease) DM type 2 (diabetes mellitus, type 2) ASCVD (arteriosclerotic cardiovascular disease) Known LAD stenosis s/p PCIx2 to [employer] [facility] per [facility], PCI to LAD RH ICD (implantable cardioverter-defibrillator) in place [employer] cobalt placed at [facility] [place] 04/15/23 CHF with cardiomyopathy (HFpEF) heart failure with preserved ejection fraction 04/15 EF 17% per [facility] [place] RH Chronic GERD Elevated troponin Acute exacerbation of chronic obstructive pulmonary disease (COPD) Acute respiratory failure with hypoxia and hypercapnia Tobacco Smoking/Tobacco Use Status: Former Tobacco Use Alcohol Alcohol Intake: current Alcohol intake frequency: 3 or more drinks per day Substance Use Substance use type: does not use Vital Signs & Lab Results Vital Signs Most Recent Vital Signs: Most Recent Vital Signs Temp Pulse Resp BP Pulse Ox 37.3 C 98 H 19 109/60 91 L 02/11/25 11:23 02/11/25 12:30 02/11/25 12:30 02/11/25 12:30 02/11/25 12:30 Point of Care Results Nursing Point of Care Results: 2 Finger Stick Blood Glucose, (70 - 120) 97 0 02/10/25, 20:21 Lab Results 02/11/25 05:35 02/11/25 05:35 Blood Type / Crossmatch: 2 Antibody Screen NEGATIVE 02/09/25 Crossmatch See Detail 02/09/25 Complete Blood Count: 2 WBC, (4.4-10.8) 4.50 10^3/uL Today, 05:35 RBC, (4.36-5.78) 4.69 10^6/uL Today, 05:35 Hgb, (13.5-17.5) 12.9 g/dL L Today, 05:35 Hct, (40.0-50.0) 42.7 % Today, 05:35 Plt Count, (130-400) 192 10^3/uL Today, 05:35 VBG Lactate, (<or=2.0) 1.4 mmol/L 02/09/25, 12:13 Complete Metabolic Panel: 2 Sodium, (136-145) 140 mmol/L Today, 05:35 Potassium, (3.5-5.1) 4.4 mmol/L Today, 05:35 Chloride, (98-107) 101 mmol/L Today, 05:35 Carbon Dioxide, (21.0-32.0) 36.0 mmol/L H Today, 05:35 BUN, (7-18) 20 mg/dL H Today, 05:35 Creatinine, (0.70-1.30) 1.6 mg/dL H Today, 05:35 Est GFR (CKD-EPI 2020), (mL/min/1.73m2) 45.78 Today, 05:35 Magnesium, (1.8-2.4) 2.1 mg/dL 02/10/25, 16:47 Calcium, (8.5-10.1) 8.9 mg/dL Today, 05:35 Ionized Calcium Pending 02/10/25, 16:47 Albumin, (3.4-5.0) 2.6 g/dL L Today, 05:35 Glucose, (74-106) 118 mg/dL H Today, 05:35 Liver Function Panel: 2 ALT, (16-63) 24 U/L Today, 05:35 AST, (15-37) 19 U/L Today, 05:35 Coagulation Panel: 2 INR, (0.9-1.1) 1.2 H 02/09/25, 12:42 PT, (9.1-11.1) 11.7 sec H 02/09/25, 12:42 APTT, (20.6-30.2) 30.2 sec 02/09/25, 12:42 Pancreas Panel: 2 Lipase, (<78) 23 U/L 02/09/25, 12:13 Imaging and Studies Imaging and Studies EKG Summary: EKG PATIENT NAME: Jonny Baker UNIT #: [id number] ORDERING PROVIDER: Aris Guevara M.D. PRIMARY CARE PROVIDER: Jc Morales DO DATE/TIME OF SERVICE: 02/10/25 1629 : 1955 PERFORMING LOCATION: ICU APPROVED REPORT Exam: Resting ECG Reason for Exam: arrhythmia Patient Location: I HR:129 bpm ECG Measurements Heart Rate 129 AXIS NJ 141 P 52 QRSd 103 QRS 28 QT 293 T141 QTc 430 Conclusion Sinus tachycardia...rate> 99 Probable left atrial enlargement...P >50mS, <-0.10mV V1 Abnormal T, consider ischemia, lateral leads...T <-0.20mV, I aVL V5 V6 - <Electronically signed by MARI PONCE MD in [place]> E-Sign Date: 02/11/25 E-Sign Time: 0800 Echocardiogram Summary: Patient Name: Jonny Baker Unit #: [id number] Loc: [place] Ordering Provider: Nelida Torres APRN Status: DIS IN Primary Care Provider: Jc Morales DO Date of Exam: 12/07/24 Sex: M Admission Date: 12/04/24 : 1955 Age: 69 APPROVED REPORT EXAM: Comprehensive 2D, Doppler, and color-flow Echocardiogram Patient Location: In-Patient Systems Integration Manager: Bora Dent RDCS (AE) Other Information Study Quality: Adequate Conclusion Normal left ventricular wall thickness and chamber size. Ejection fraction is 50 to 55%. Wall motion is normal Normal right ventricular size and function Both atria are normal in size Device lead noted in the right heart There are no structural valvular abnormalities Mild mitral regurgitation Ascending aorta measures 3.81 cm Wall motion Left Ventricle The left ventricle is normal size. The left ventricular systolic function is normal. The left ventricular ejection fraction is within the normal range. There is normal left ventricular wall thickness. There is normal LV segmental wall motion. There is no ventricular septal defect visualized. LVEF is 50-55 Right Ventricle The right ventricle is normal size. The right ventricular systolic function is normal. Device lead is present in the right ventricle. Atria The left atrium size is normal. The right atrium size is normal. The interatrial septum is intact with no evidence for an atrial septal defect. Aortic Valve The aortic valve is normal in structure. Aortic valve is trileaflet. There is no aortic valvular stenosis. No aortic regurgitation is present. Mitral Valve The mitral valve is normal in structure. No evidence of mitral valve stenosis. mild mitral regurgitation. Tricuspid Valve The tricuspid valve is normal in structure. There is no tricuspid valve stenosis. Trace tricuspid regurgitation. Pulmonic Valve The pulmonary valve is normal in structure. There is no pulmonic valvular stenosis. There is no pulmonic valvular regurgitation. Great Vessels The aortic root is normal in size. The ascending aorta is mildly to moderately dilated. IVC is normal in size and collapses >50% with inspiration. Pericardium There is no pericardial effusion. 2D Dimensions IVSD d PLAX 0.94 cm M: 0.6-1.2Ao Root d 2.84 cm M: 3.1 - 3.7 LVPW d PLAX 0.89 cm M: 0.6 - 1.2Ao Asc Diam d 3.81 cm M: 2.6 - 3.4 LVID d PLAX 5.70 cm M: 4.2 - 5.8 LVDs 4.28 cm M: 2.5 - 4.0 LV EF Teichholz 48.5 % FS24.80 % LV EDV (Teich)159.9 mL LV ESV (Teich)82.3 mL Stroke Vol Index (Teich)35.24 M-Mode TAPSE 2.07 cm (M/F) >1.7 Auto EF LV EDV O1X361.9 mLLV EDV C2E606.0 mLLV EDV BP175.1 mL LV ESV A4C97.5 mLLV ESV A2C95.5 mLLV ESV BP96.6 mL LVEF(%) A4C44.9 %LVEF(%) A2C45.1 %LVEF(%) BP44.9 % LV SV A4C79.4 mlLV SV A2C78.5 mlLV SV BP78.6 ml LV CO A4C7.3 L/minLV CO A2C7.0 L/minLV CO BP7.2 L/min HR A4C92.31 BPMHR A2C89.34 BPMLV EDV Index (BP) LA Volume LA Length A4C5.5 cmLA Length A2C5.1 cm LA Area A4C s 15.42 cm2LA Area A2C s 13.48 cm2 LA Vol A4C A-L36.78 mLLA Vol A2C A-L30.18 mLLA Vol Biplane A-L34.5 mL LA Vol/BSA A4C A-LLA Vol/BSA A2C A-LLA Vol/BSA BP A-L 15.7 mL/m2 LA Vol A4C MOD36.8 mLLA Vol A2C MOD28.8 mLLA Vol BP MOD33.5 mL RA Volume RA Area A4C8.5 cm2RA ESV A4C (A-L)15.6mLRA Vol/BSA A4C A-L RA Length A4C4.0 cmRA ESV A4C (MOD)14.6mL LV Diastology MV E' medial0.061 (>0.07 m/s)MV E Vmax 1.03 (0.4-1.3 m/s) MV E/E' MED16.75 (<14)MV A Vmax 1.35 (0.4-1.3 m/s) MV E' lateral0.075 (>0.1 m/s)E/A Ratio 0.8 MV E/E' LAT13.66 (<14) MV E' Average0.068 m/s MV E/E'(average)15.05 Aortic Valve AoV Vmax1.53 m/sLVOT Vmax 1.05 m/s AoV Peak Grad9.3 mmHgLVOT Peak Grad 4.4 mmHg AoV Area (Vmax)2.10 bu0WKFB VTI0.205 m AoV VTI0.301 mLVOT Mean Grad 3.0 mmHg AoV Mean José Luis.1.03 m/sLVOT SV 62.56 mL AoV Mean Grad4.8 mmHgLVOT Diam s 1.95 cm AoV Area (VTI)2.08 cm2AV Regurg Peak Gr.9.31 mmHg Velocity Ratio 0.69 Mitral Valve MV DT 160 (160-240 msec) Pulmonary Valve PV Vmax 1.05 (0.5-1.5 m/s)RVOT Vmax 0.71 m/s PV Peak Grad 4.4 mmHgRVOT Peak Gr.2.0 mmHg PV Mean Vel0.75 m/sRVOT VTI0.137 m PV Mean Grad 2.5 mmHgRVOT Mean Gr.1.2 mmHg Ordered By: Nelida Torres APRN CC: Dictated By: Mari Ponce M.D. 12/07/24 1539 <Electronically signed by Mari Ponce M.D. in [place]> 12/08/24 1445 Transcribed By: Mari Ponce MD 12/07/24 1539 This is privileged, confidential information intended only for the provider named. Any use or distribution by any person other than this provider is strictly prohibited. If you receive this report in error, please notify us immediately at [phone] and return the original report to us at the address above. Thank-you.
--- NOTE | 2025-02-11 13:19 | DI.US_ITS ---
APPROVED REPORT EXAM: Comprehensive 2D, Doppler, and color-flow Echocardiogram Patient Location: In-Patient Room/Bed: BBN562 Edge Worker: Kerrie Nunez RDCS (AE) Indications: Low BP Other Information Study Quality: Fair. Technically limited study due to body habitus. Conclusion Normal left ventricular wall thickness and chamber size. Ejection fraction is 40 to 45%. Septal motion suggests an IVCD or paced beats. There is elsewhere global hypokinesis Right ventricular function appears normal Device lead noted in the right heart Wall motion Left Ventricle Limited follow up exam performed. Left ventricular systolic function is moderately decreased. There is global hypokinesis of the left ventricle. Septal motion suggest conduction delay or paced beats LVEF is 40-45%. Right Ventricle Right ventricle is grossly normal in size. Right ventricular systolic function is grossly normal. Device lead is present in the right ventricle. Auto EF LV EDV A4C 127.9 mL LV EDV A2C 174.0 mL LV EDV BP 149.9 mL LV ESV A4C 77.5 mL LV ESV A2C 104.7 mL LV ESV BP 89.9 mL LVEF(%) A4C 39.4 % LVEF(%) A2C 39.8 % LVEF(%) BP 40.0 % LV SV A4C 50.4 ml LV SV A2C 69.3 ml LV SV BP 60.0 ml LV CO A4C 4.8 L/min LV CO A2C 6.5 L/min LV CO BP 5.6 L/min HR A4C 95.49 BPM HR A2C 93.51 BPM LV EDV Index (BP) LV Strain Long Pk Overal Avg (s) 10.58
--- NOTE | 2025-02-11 17:03 | W.NUTRFU ---
Date of service: 02/11/25 Time of Service: 15:00 Nutrition Note NOTE: visited with Jonny today while he had some visitors. Voiced his dislike for being on clear liquids and wants real food. Reassured him that probably tomorrow he can see if diet can be advanced but colonoscopy procedure requires clears for now - obtained some preferences for clears for him. Denies any unitntentional weight loss. Mr Baker has a BMI corresponding to class II obesity with many of the metabolic effects and resulting medical conditions that need to be managed. Takes empagliflozin daily and 500mg metformin BID at home along with weekly semaglutide. Brief diet interview during visit reveals diet high in processed foods, low fiber intake and high refined CHO intake. FPG 118 this morning and fingersticks have been 97-120. ordered for regular diet - clears . no insulin ordered at this time and seems unncessary - will monitor glucose. Offered to answer any questions and review any diet management strategies - pt declined. Nutr Dx: Excessive intake of refined cho and saturated fat, exessive kcals related to pt's usual intake per brief nutrition interview today Intervention: will continue to offer education. recommend upgrade diet when medically appropriate to consistent CHO, heart healthy diet. Will monitor glucose, weight, nutrition-related labs, intake Time Spent in Nutritional Counseling and Treatment: 5 min
[2025-02-11] MEDS: Tamsulosin 0.4 MG CAPCR 0.8 MG PO (20:52)
[2025-02-11] MEDS: Meloxicam 15 MG TAB PO (20:53)
[2025-02-12] VITALS (52 sets, daily range): BP systolic 73–188; BP diastolic 51–126; PULSE 69–108; RESP 12–28; TEMP 36–37.1; O2SAT 81–94; BMI 38.9
[2025-02-12 06:51] LABS: Abs Immature Grans 0.02 10^3/uL (0.0-0.06); HCT 41.4 % (40.0-50.0); HGB 12.7 g/dL (13.5-17.5); Immature Grans % 0.6 %; MCH 28.2 pg (27.0-33.0); MCHC 30.7 % (32.0-36.0); MCV 92 fL (80-95); MPV 8.6 fL (8.0-11.0); Platelet Count 188 10^3/uL (130-400); RBC 4.50 10^6/uL (4.36-5.78); RDW 15.9 % (11.8-14.1); RDW-SD 53.6 fL; WBC 3.61 10^3/uL (4.4-10.8)
[2025-02-12 07:07] LABS: ALT 18 U/L (16-63); AST 15 U/L (15-37); Albumin 2.3 g/dL (3.4-5.0); Alkaline Phosphatase 71 U/L (46-116); Anion Gap 4.4 mmol/L (3-11); BUN 14 mg/dL (7-18); Bilirubin, Total 0.3 mg/dL (0.2-1.0); CO2 35.6 mmol/L (21.0-32.0); Calcium 8.7 mg/dL (8.5-10.1); Chloride 102 mmol/L (98-107); Estimated GFR 64.65 (mL/min/1.73m2); Glucose 92 mg/dL (74-106); Sodium 142 mmol/L (136-145); Total Protein 6.3 g/dL (6.4-8.2)
[2025-02-12 07:16] LABS: Potassium 3.4 mmol/L (3.5-5.1)
[2025-02-12] MEDS: Tiotropium/Olodaterol 10 PUFF INHALER 2 PUFF IH (07:38)
[2025-02-12] MEDS: Budesonide/Formoterol 160/4.5 6 GM 60 PUFF INH IH ×2 (07:39→20:07)
[2025-02-12] MEDS: Normal Saline Flush 10 ML SYR IVP ×2 (08:20→20:39)
--- NOTE | 2025-02-12 09:03 | PDOC.CMPRO ---
Date of service: 02/12/25 Time of Service: 09:03 Care Management Progress Note Progress Note Text Progress Note Text: Robert was lying in bed, asleep, when CM attempted to meet with him. His nurse asked that he not be awakened. Robert was scheduled to have a colonoscopy and EGD today. He was admitted with a GI Bleed and was scheduled to have the procedures earlier in the week but developed CHF. The procedures were completed this afternoon and no signs of bleeding were noted. Additionally, his H&H has remained stable throughout. Robert's diet will be advanced for dinner and he will likley be discharged home tomorrow. Discharge Potential Discharge Needs: PCP F/U Appt Anticipated Barriers to Discharge: None Identified Patient/Family Education Needs: Review discharge instructions, discuss Ask Me Three Transportation: Private vehicle Plan: Anticipate Robert will return home once medically cleared. He will follow up with his community providers and continue per his plan of care. Robert will transport via private vehicle with his . CM will continue to assess for discharge needs. Social Determinants of Health Screening Social Determinants of health last assessed in clinic: 02/12/25 Will the Patient Participate in the Screening?: Yes Do you worry about having a steady place to live?: no Problems where you live: no known problems In the past 12 months, have you had to go without electric, gas, oil or water in your home?: no 1. Within the past 12 months, we worried whether our food would run out before we got money to buy more.: Never true 2. Within the past 12 months, the food we bought just didn't last and we didn't have money to get more.: Never true Has lack of transportation kept you from medical appointments or from doing things needed for daily living?: no Has anyone in your life made you feel unsafe or unsupported?: no How hard is it for you to pay for the very basics like food, housing, medical care, and heating? Would you say it is:: Not hard at all Do you want help finding or keeping work or a job?: I do not need or want help If for any reason you need help with day-to-day activities such as bathing, preparing meals, shopping, managing finances, etc., do you get the help you need?: I don?t need any help How often do you feel lonely or isolated from those around you?: Never Do you speak a language other than Spanish at home?: No Does the patient want assistance with any of the above?: No
[2025-02-12] MEDS: Rosuvastatin 20 MG TAB 40 MG PO (09:23)
[2025-02-12] MEDS: Metoprolol CR 100 MG TABCR 200 MG PO (09:23)
[2025-02-12] MEDS: Empaglifozin 10 MG TAB PO (09:23)
[2025-02-12] MEDS: Gabapentin 100 MG CAP PO (09:23)
[2025-02-12] MEDS: Glucosamine/Chondroitin CAP 1 CAP PO (09:23)
[2025-02-12] MEDS: Magnesium Chloride 64 MG TABCR PO (09:23)
[2025-02-12] MEDS: traZODone 50 MG TAB PO (09:24)
[2025-02-12] MEDS: Amiodarone 200 MG TAB PO (09:24)
[2025-02-12] MEDS: Pantoprazole 40 MG TABCR PO (09:24)
--- NOTE | 2025-02-12 10:59 | W.ANESPRE ---
General Info Date of Service Date Performed: 02/12/25 Height: 5 ft 6 in Weight: 109.6 kg Body Mass Index (BMI): 38.9 Surgical Procedure: Operation Date: 02/11/25 10:50 Proposed Procedure Side Surgeon p Colonoscopy/Gastroscopy Orly De Jesus MD Operation Date: 02/12/25 13:50 Proposed Procedure Side Surgeon p Colonoscopy/Gastroscopy Orly De Jesus MD Meds Allergies and Home Medications Allergies Allergy/AdvReac Type Severity Reaction Status Date / Time Penicillins AdvReac Skin Rash Verified 02/09/25 13:34 Home Medication ?Medication ?Instructions ?Recorded glucosamine 500 im-[id number] 1 tab PO DAILY 04/16/23 no1 416.6 mg-C 20 kn-kqoh-mnrk tablet metformin 500 mg tablet 500 mg PO BID 04/16/23 semaglutide 2 mg/dose (8 mg/3 mL) 2 mg subcut QWEEK 04/16/23 subcutaneous pen injector (Ozempic) sildenafil 100 mg tablet 100 mg PO DAILY PRN 04/16/23 tamsulosin 0.4 mg capsule 0.8 mg PO QHS 04/16/23 amiodarone 200 mg tablet 200 mg PO DAILY 04/22/23 apixaban 5 mg tablet 5 mg PO BID 04/22/23 clopidogrel 75 mg tablet 75 mg PO DAILY 04/22/23 empagliflozin 10 mg tablet 10 mg PO DAILY 04/22/23 furosemide 40 mg tablet 40 mg PO DAILY 04/22/23 pantoprazole 40 mg tablet,delayed 40 mg PO DAILY 04/22/23 release rosuvastatin 40 mg tablet 40 mg PO DAILY 04/22/23 albuterol sulfate 90 mcg/actuation 2 inh inhalation Q6H PRN 07/06/24 breath activated powder inhaler gabapentin 100 mg capsule 100 mg PO DAILY 07/06/24 magnesium chloride 64 mg 64 mg PO DAILY 07/06/24 tablet,extended release nitroglycerin 0.4 mg sublingual 0.4 mg sublingual Q5M PRN 07/06/24 tablet omeprazole 20 mg capsule,delayed 20 mg PO DAILY 07/06/24 release spironolactone 25 mg tablet 25 mg PO DAILY 07/06/24 tiotropium 2.5 mcg-olodaterol 2.5 2 puff inhalation DAILY 07/06/24 mcg/actuation mist for inhalation (Stiolto Respimat) metoprolol succinate 100 mg 200 mg PO DAILY 12/04/24 tablet,extended release 24 hr (Toprol XL) melatonin 3 mg capsule 3 mg PO HS PRN #30 caps 12/07/24 fluticasone 100 mcg-salmeterol 50 2 inh inhalation BID 01/06/25 mcg/dose blistr powdr for inhalation (Advair Diskus) fluticasone 500 mcg-salmeterol 50 1 inh inhalation DAILY 01/06/25 mcg/dose blistr powdr for inhalation meloxicam 15 mg tablet 15 mg PO QHS 01/06/25 sacubitril 49 mg-valsartan 51 mg 1 tab PO BID 01/06/25 tablet (Entresto) albuterol sulfate 90 mcg/actuation 2 inh inhalation Q6H PRN 02/09/25 aerosol inhaler fluticasone propionate 230 2 puff inhalation BID 02/09/25 mcg-salmeterol 21 mcg/actuation HFA inhaler (Advair HFA) metformin 500 mg tablet,extended 1,500 mg PO DAILY 02/09/25 release 24 hr trazodone 50 mg tablet 50 mg PO DAILY 02/09/25 Current Visit Medications: Current Medications Generic Name Dose Route Start Last Admin Trade Name Freq PRN Reason Stop Dose Admin Acetaminophen 0 mg 02/09/25 15:55 Acetaminophen 325 Mg Tab PO Q4H PRN PRN Al Hydrox/Mg Hydrox/Simethicone 30 ml 02/09/25 15:55 Mylanta Suspension 30 Ml Cup PO Q2H PRN PRN Albuterol Sulfate 2 puff 02/09/25 19:04 Albuterol Hfa 6.7 Gm 200 Puff Inh IH Q6H PRN PRN Amiodarone HCl 200 mg 02/10/25 08:30 02/12/25 09:24 Amiodarone 200 Mg Tab PO 200 mg DAILY AMANDA Administration Budesonide/Formoterol Fumarate 2 puff 02/10/25 20:00 02/12/25 07:39 Budesonide/Formoterol 160/4.5 6 Gm 60 Puff Inh IH 2 puffs BID AMANDA Administration Docusate Sodium 100 mg 02/09/25 15:55 Docusate Sodium 100 Mg Cap PO TID PRN PRN Empagliflozin 10 mg 02/10/25 08:30 08/22/25 09:23 Empaglifozin 10 Mg Tab PO 10 mg DAILY AMANDA Administration Gabapentin 100 mg 02/10/25 08:30 02/12/25 09:23 Gabapentin 100 Mg Cap PO 100 mg DAILY AMANDA Administration Glucosamine/Chondroitin 1 cap 02/11/25 08:30 02/12/25 09:23 Glucosamine/Chondroitin Cap PO 1 cap DAILY AMANDA Administration Norepinephrine Bitartrate 8 mg in 250 mls @ 0 mls/hr 02/09/25 15:00 02/11/25 04:43 IV 0 mls/hrs INFUSION AMANDA 0 mls/hr Protocol Titration Per Protocol Sodium Chloride 1,000 mls @ 150 mls/hr 02/09/25 21:15 02/11/25 02:45 Saline 1000ml Bag IV 0 mls/hr INFUSION AMANDA Infusion Magnesium Chloride 64 mg 02/10/25 08:30 02/12/25 09:23 Magnesium Chloride 64 Mg Tabcr PO 64 mg DAILY AMANDA Administration Magnesium Hydroxide 30 ml 02/09/25 15:55 Milk Of Magnesia 30 Ml Cup PO DAILY PRN PRN Melatonin 3 mg 02/09/25 19:06 Melatonin 3 Mg Tab PO HS PRN PRN Meloxicam 15 mg 02/09/25 20:00 02/11/25 20:53 Meloxicam 15 Mg Tab PO 15 mg HS AMANDA Administration Metoprolol Succinate 200 mg 02/10/25 08:30 02/12/25 09:23 Metoprolol Cr 100 Mg Tabcr PO 200 mg DAILY AMANDA Administration Nitroglycerin 0.4 mg 02/10/25 14:26 Nitroglycerin 0.4 Mg Tab SL Q5 MIN PRN X3 PRN Pantoprazole Sodium 40 mg 02/10/25 07:30 02/12/25 09:24 Pantoprazole 40 Mg Tabcr PO 40 mg 0730 AMANDA Administration Pt's Own Semaglutide 1 each 02/11/25 08:30 02/11/25 15:15 [Ozempic] 2 Mg/Dose SC Not Given Pen Inj Th [facility] Polyethylene Glycol 17 gm 02/09/25 15:55 Polyethylene Glycol 3350 17 Gm Packet PO DAILY PRN PRN Constipation Rosuvastatin Calcium 40 mg 02/10/25 08:30 02/12/25 09:23 Rosuvastatin 20 Mg Tab PO 40 mg DAILY AMANDA Administration Sodium Chloride 0 ml 02/09/25 12:40 02/12/25 08:20 Normal Saline Flush 10 Ml Syr IVP 10 ml PRN PRN Administration Sodium Cl/Sod Bicarb/Potass Cl/PEG 4,000 ml 02/10/25 12:00 02/10/25 13:21 Gavilyte-G 4000 Ml Btl PO 4 l DIRECTED AMANDA Administration Tamsulosin HCl 0.8 mg 02/09/25 20:00 02/11/25 20:52 Tamsulosin 0.4 Mg Capcr PO 0.8 mg HS AMANDA Administration Tiotropium [place]/Olodaterol 2 puff 02/10/25 08:30 02/12/25 07:38 Tiotropium/Olodaterol 10 Puff Inhaler IH 2 inh DAILY AMANDA Administration Trazodone HCl 50 mg 02/10/25 08:30 02/12/25 09:24 Trazodone 50 Mg Tab PO 50 mg DAILY AMANDA Administration PFSH Active Problems Active Problems: Problem Status Onset Code CHF (congestive heart failure) Chronic I50.9 Anticoagulated Acute Z79.01 Umbilical hernia without obstruction and without gangrene Acute K42.9 BPH (benign prostatic hyperplasia) Chronic N40.0 GIB (gastrointestinal bleeding) Chronic K92.2 Altered mental status Acute R41.82 Elevated troponin Acute R79.89 Acute respiratory failure with hypoxia and hypercarbia Acute J96.01, J96.02 Restless leg syndrome Acute G25.81 Presence of cardiac defibrillator Acute Z95.810 Overweight Acute E66.3 NSTEMI (non-ST elevated myocardial infarction) Acute I21.4 Insomnia Acute G47.00 Hypertensive disorder Chronic I10 COPD with chronic bronchitis Acute J44.89 Bilateral cataracts Acute H26.9 Atrial flutter Acute I48.92 Atherosclerotic coronary vascular disease Acute I25.10 Acid reflux Chronic K21.9 Hyperlipidemia Acute E78.5 Diabetes mellitus Chronic E11.9 Medical History Medical History (Updated 02/11/25 @ 11:35 by Sina Akhtar MD) HTN (hypertension) with goal to be determined Paroxysmal A-fib COPD (chronic obstructive pulmonary disease) DM type 2 (diabetes mellitus, type 2) ASCVD (arteriosclerotic cardiovascular disease) Known LAD stenosis s/p PCIx2 to [employer]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 RCA per [facility], PCI to LAD RH ICD (implantable cardioverter-defibrillator) in place Medtronic cobalt placed at [facility] 04/15/23 CHF with cardiomyopathy (HFpEF) heart failure with preserved ejection fraction 04/15 EF 17% per [facility] RH Chronic GERD Elevated troponin Acute exacerbation of chronic obstructive pulmonary disease (COPD) Acute respiratory failure with hypoxia and hypercapnia Surgical History Surgical History (Updated 02/11/25 @ 15:04 by Ondina Tyson) Hx of colonoscopy with polypectomy (~02/11/25) Tobacco Smoking/Tobacco Use Status: Former Tobacco Use Alcohol Alcohol Intake: current Alcohol intake frequency: 3 or more drinks per day Substance Use Substance use type: does not use Vital Signs and Lab Results Vital Signs Most Recent Vital Signs in EMR: Most Recent Vital Signs Temp Pulse Resp BP Pulse Ox 36.2 C L 90 23 119/70 92 02/12/25 07:30 02/12/25 10:31 02/12/25 10:31 02/12/25 10:31 02/12/25 10:31 Point of Care Results Point of Care Results: Finger Stick Blood Glucose 97 02/10/25 20:21 Lab Results 02/12/25 05:35 02/12/25 05:35 Blood Type / Crossmatch: Antibody Screen NEGATIVE 02/09/25 Crossmatch See Detail 02/09/25 Complete Blood Count: WBC, (4.4-10.8) 3.61 10^3/uL L Today, 05:35 RBC, (4.36-5.78) 4.50 10^6/uL Today, 05:35 Hgb, (13.5-17.5) 12.7 g/dL L Today, 05:35 Hct, (40.0-50.0) 41.4 % Today, 05:35 Plt Count, (130-400) 188 10^3/uL Today, 05:35 VBG Lactate, (<or=2.0) 1.4 mmol/L 02/09/25, 12:13 Complete Metabolic Panel: Sodium, (136-145) 142 mmol/L Today, 05:35 Potassium, (3.5-5.1) 3.4 mmol/L L Δ Today, 05:35 Chloride, (98-107) 102 mmol/L Today, 05:35 Carbon Dioxide, (21.0-32.0) 35.6 mmol/L H Today, 05:35 BUN, (7-18) 14 mg/dL Today, 05:35 Creatinine, (0.70-1.30) 1.2 mg/dL Today, 05:35 Est GFR (CKD-EPI 2020), (mL/min/1.73m2) 64.65 Today, 05:35 Magnesium, (1.8-2.4) 2.1 mg/dL 02/10/25, 16:47 Calcium, (8.5-10.1) 8.7 mg/dL Today, 05:35 Ionized Calcium, (1.14-1.35) 1.07 mmol/L L 02/10/25, 16:47 Albumin, (3.4-5.0) 2.3 g/dL L Today, 05:35 Glucose, (74-106) 92 mg/dL Today, 05:35 Liver Function Panel: ALT, (16-63) 18 U/L Today, 05:35 AST, (15-37) 15 U/L Today, 05:35 Coagulation Panel: INR, (0.9-1.1) 1.2 H 02/09/25, 12:42 PT, (9.1-11.1) 11.7 sec H 02/09/25, 12:42 APTT, (20.6-30.2) 30.2 sec 02/09/25, 12:42 Pancreas Panel: Lipase, (<78) 23 U/L 02/09/25, 12:13 Imaging and Studies Imaging and Studies Study information below may be from another EMR and interpreted by another provider. Please see original notes in EMR for more complete details. EKG Summary: EKG PATIENT NAME: Jonny Baker UNIT #: [id number] ORDERING PROVIDER: Aris Guevara M.D. PRIMARY CARE PROVIDER: Jc Morales DO DATE/TIME OF SERVICE: 02/10/25 1629 : 1955 PERFORMING LOCATION: ICU APPROVED REPORT Exam: Resting ECG Reason for Exam: arrhythmia Patient Location: I HR:129 bpm ECG Measurements Heart Rate 129 AXIS [place] 141 P 52 QRSd 103 QRS 28 QT 293 T141 QTc 430 Conclusion Sinus tachycardia...rate> 99 Probable left atrial enlargement...P >50mS, <-0.10mV V1 Abnormal T, consider ischemia, lateral leads...T <-0.20mV, I aVL V5 V6 <Electronically signed by MARI OPNCE MD in OV> E-Sign Date: 02/11/25 E-Sign Time: 0800 Echocardiogram Summary: Patient Name: Jonny Baker Unit #: [id number] Loc: [place] Ordering Provider: Nelida Torres APRN Status: DIS IN Primary Care Provider: Jc Morales DO Date of Exam: 12/07/24 Sex: M Admission Date: 12/04/24 : 1955 Age: 69 APPROVED REPORT EXAM: Comprehensive 2D, Doppler, and color-flow Echocardiogram Patient Location: In-Patient 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 Ejection fraction is 50 to 55%. Wall motion is normal Normal right ventricular size and function Both atria are normal in size Device lead noted in the right heart There are no structural valvular abnormalities Mild mitral regurgitation Ascending aorta measures 3.81 cm Wall motion Left Ventricle The left ventricle is normal size. The left ventricular systolic function is normal. The left ventricular ejection fraction is within the normal range. There is normal left ventricular wall thickness. There is normal LV segmental wall motion. There is no ventricular septal defect visualized. LVEF is 50-55 Right Ventricle The right ventricle is normal size. The right ventricular systolic function is normal. Device lead is present in the right ventricle. Atria The left atrium size is normal. The right atrium size is normal. The interatrial septum is intact with no evidence for an atrial septal defect. Aortic Valve The aortic valve is normal in structure. Aortic valve is trileaflet. There is no aortic valvular stenosis. No aortic regurgitation is present. Mitral Valve The mitral valve is normal in structure. No evidence of mitral valve stenosis. mild mitral regurgitation. Tricuspid Valve The tricuspid valve is normal in structure. There is no tricuspid valve stenosis. Trace tricuspid regurgitation. Pulmonic Valve The pulmonary valve is normal in structure. There is no pulmonic valvular stenosis. There is no pulmonic valvular regurgitation. Great Vessels The aortic root is normal in size. The ascending aorta is mildly to moderately dilated. IVC is normal in size and collapses >50% with inspiration. Pericardium There is no pericardial effusion. 2D Dimensions IVSD d PLAX 0.94 cm M: 0.6-1.2Ao Root d 2.84 cm M: 3.1 - 3.7 LVPW d PLAX 0.89 cm M: 0.6 - 1.2Ao Asc Diam d 3.81 cm M: 2.6 - 3.4 LVID d PLAX 5.70 cm M: 4.2 - 5.8 LVDs 4.28 cm M: 2.5 - 4.0 LV EF Teichholz 48.5 % FS24.80 % LV EDV (Teich)159.9 mL LV ESV (Teich)82.3 mL Stroke Vol Index (Teich)35.24 M-Mode TAPSE 2.07 cm (M/F) >1.7 Auto EF LV EDV S3I032.9 mLLV EDV H8S964.0 mLLV EDV BP175.1 mL LV ESV A4C97.5 mLLV ESV A2C95.5 mLLV ESV BP96.6 mL LVEF(%) A4C44.9 %LVEF(%) A2C45.1 %LVEF(%) BP44.9 % LV SV A4C79.4 mlLV SV A2C78.5 mlLV SV BP78.6 ml LV CO A4C7.3 L/minLV CO A2C7.0 L/minLV CO BP7.2 L/min HR A4C92.31 BPMHR A2C89.34 BPMLV EDV Index (BP) LA Volume LA Length A4C5.5 cmLA Length A2C5.1 cm LA Area A4C s 15.42 cm2LA Area A2C s 13.48 cm2 LA Vol A4C A-L36.78 mLLA Vol A2C A-L30.18 mLLA Vol Biplane A-L34.5 mL LA Vol/BSA A4C A-LLA Vol/BSA A2C A-LLA Vol/BSA BP A-L 15.7 mL/m2 LA Vol A4C MOD36.8 mLLA Vol A2C MOD28.8 mLLA Vol BP MOD33.5 mL RA Volume RA Area A4C8.5 cm2RA ESV A4C (A-L)15.6mLRA Vol/BSA A4C A-L RA Length A4C4.0 cmRA ESV A4C (MOD)14.6mL LV Diastology MV E' medial0.061 (>0.07 m/s)MV E Vmax 1.03 (0.4-1.3 m/s) MV E/E' MED16.75 (<14)MV A Vmax 1.35 (0.4-1.3 m/s) MV E' lateral0.075 (>0.1 m/s)E/A Ratio 0.8 MV E/E' LAT13.66 (<14) MV E' Average0.068 m/s MV E/E'(average)15.05 Aortic Valve AoV Vmax1.53 m/sLVOT Vmax 1.05 m/s AoV Peak Grad9.3 mmHgLVOT Peak Grad 4.4 mmHg AoV Area (Vmax)2.10 nf5SUPT VTI0.205 m AoV VTI0.301 mLVOT Mean Grad 3.0 mmHg AoV Mean José Luis.1.03 m/sLVOT SV 62.56 mL AoV Mean Grad4.8 mmHgLVOT Diam s 1.95 cm AoV Area (VTI)2.08 cm2AV Regurg Peak Gr.9.31 mmHg Velocity Ratio 0.69 Mitral Valve MV DT 160 (160-240 msec) Pulmonary Valve PV Vmax 1.05 (0.5-1.5 m/s)RVOT Vmax 0.71 m/s PV Peak Grad 4.4 mmHgRVOT Peak Gr.2.0 mmHg PV Mean Vel0.75 m/sRVOT VTI0.137 m PV Mean Grad 2.5 mmHgRVOT Mean Gr.1.2 mmHg Ordered By: Nelida Torres APRN CC: Dictated By: Mari Ponce M.D. 12/07/24 1538 <Electronically signed by Mari Ponce M.D. in OV> 12/08/24 1444 Transcribed By: Mari Ponce MD 12/07/24 6538 This is privileged, confidential information intended only for the provider named. Any use or distribution by any person other than this provider is strictly prohibited. If you receive this report in error, please notify us immediately at [phone] and return the original report to us at the address above. Thank-you. Anesthesia Assessment and Plan Anesthesia History Personal History: No History of Anesthesia Complications Family History: No Family History of Anesthesia Complications Exercise Tolerance Exercise Tolerance: Metabolic Equivalents>4 Pertinent Negatives Pertinent Negatives: No Symptoms of GERD Cardiac & Pulmonary Exam Cardiac Exam: Normal S1/S2 Heart Sounds Pulmonary Exam: Clear Bilateral Breath Sounds Implantable Cardiac Device Does patient have a Pacemaker or an ICD?: Yes Device Mud Worker:: Medtronic Dual-chamber Reason for Placement:: SVT? Date of Last Device Interrogation:: 01/06/25 Airway Exam Known Difficult Airway: No Mallampati Class: 3 Mouth Opening: Normal (> 3cm) Thyromental Distance: Greater than 3 cm Neck Range of Motion: Full ROM Neck Circumference: Thick Teeth Condition: Normal Dentition ASA Classification ASA Score: ASA 3 Emergency Case?: No NPO Status NPO Status: NPO Clears >2 hours, Solids >8 hours Anesthesia Plan Resuscitation Status: Full Code Anesthesia Technique: General Anesthesia Airway Planned: Natural Airway Monitors Used: Standard Monitors
[2025-02-12] MEDS: Na Phosphate Enema-Adult 133 ML BTL PR ×2 (12:05→12:53)
--- NOTE | 2025-02-12 14:38 | W.PM.ENDDOP ---
Date of service: 02/12/25 Time of Service: 14:38 Endoscopy Report DATE OF PROCEDURE: 02/12/25 PRE-OP DIAGNOSIS: GI bleeding POST-OP DIAGNOSIS: same (duodenal diverticulum, no upper GI source for GI bleeding) PROCEDURE: EGD SURGEON: Orly De Jesus ANESTHESIA TYPE: General:No Airway ESTIMATED BLOOD LOSS: 0 PATHOLOGY: none sent COMPLICATIONS: None DISPOSITION: floor PROCEDURE DESCRIPTION: Lubricated endoscope was passed through a bite block into the second portion of the duodenum. The endoscope was withdrawn and the duodenum stomach and esophageal mucosa examined. The duodenum shows diverticulum between the first and second portions. The diverticulum is wide mouthed, patent, with a small amount of old food particulate within it. no ulceration, no bleeding. There is no inflammation or ulceration or erosion in other areas of the duodenum. The antrum appears normal. The fundus appears normal. The cardia appears normal and there is no evidence of hiatal hernia upon retroflexion. The distal esophagus appears normal without ulceration varices or candidiasis. The Z-line is regular and there is no evidence of Garcia's esophagus. Remainder of the esophagus appears normal The upper digestive system was desufflated and the endoscope withdrawn. No complications. Assessment and plan: No stigmata of recent bleeding and no source for recent bleeding seen on EGD. Duodenual diverticulum noted. Proceed with colonoscopy for eval for source of GI bleeding.
--- NOTE | 2025-02-12 14:48 | W.COLOREPORT ---
Date of service: 02/12/25 Time of Service: 14:48 Colonoscopy Report Pre-op diagnosis general: GI bleeding Post-op diagnosis procedure note: same (descending and sigmoid colitis) Procedure: Colonoscopy with biopsy Surgeon: Orly De Jesus Anesthesia Type: General:No Airway Estimated blood loss (mL): 2 Pathology: other (1. descending colon biopsy. 2. sigmoid biopsy. ) Complications: None Prep: Miralax/Dulcolax Procedure Description: Informed consent was obtained and the patient was taken to the procedure area. The patient was placed in left lateral decubitus position on the procedure table. Timeout was performed. Anesthesia was induced. SOHAIL was performed and was normal. A lubricated colonoscope was inserted through the anus and passed to the cecum. The cecum was identified by the ileocecal valve and the appendiceal orifice. The scope was then slowly withdrawn and the colonic and rectal mucosa examined. TI intubated and examined, appears normal with no fresh or old blood. There are no colon or rectal mass lesions, polyps, AVMs. There is inflammatory change present in the descending and sigmoid colon, characterized by friable erythematous and edematous mucosa. There is no ulceration or erosion visible. Small exudates present. No pseudomembranes. No diverticulosis was seen. The scope was retroflexed in the anorectal junction examined. Uncomplicated internal hemorrhoids present. Assessment and plan; No active bleeding. Colitis of descending and sigmoid colon as the most likely source of bleeding on admission. Biopsies obtained to rule out inflammatory bowel disease. I recommend treating given the bleeding complication and the need to resume anticoagulation. Oral ciprofloxacin and flagyl for 7 days is adequate. May resume anticoagulation after 72 hours of antibiotic therapy. Next colonoscopy will be due in 10 years as a screening exam.
--- NOTE | 2025-02-12 14:50 | W.ANESPOSTOP ---
Postoperative Evaluation Date, Time and Location Date Performed: 02/12/25 Time Performed: 14:50 Patient Location: Intensive Care Unit Vital Signs Most Recent Imported Vital Signs: Most Recent Vital Signs Temp Pulse Resp BP Pulse Ox 37.1 C 88 15 122/67 91 L 02/12/25 12:31 02/12/25 13:01 02/12/25 13:01 02/12/25 13:01 02/12/25 13:01 Pain Score Most Recent Pain Score: Most Recent Pain Score Pain Level 0 02/09/25 18:46 Assessment Mental Status: Awake (Alert & Oriented to Patient Baseline) Airway and Respiratory Function: Patent airway with normal (patient baseline) respiratory exam Cardiovascular Function: Hemodynamically Stable Hydration Status: Adequately Hydrated Nausea & Vomiting: No Nausea or Vomiting Pain: Pt. Denies Any Pain Peripheral Nerve Block: Patient did not receive a nerve block
--- NOTE | 2025-02-12 14:59 | PGE_ITS ---
Date of Service Date of service: 02/12/25 Time of Service: 14:59 Assessment and Plan Assessment and plan (1) GIB (gastrointestinal bleeding): Status: Chronic Assessment and plan: - Patient presented with presumed lower GI bleed with bright red blood per rectum and hypotension requiring Levophed and 1 unit packed red blood cells - However, patient's hemoglobin was 12 in the emergency department, which is roughly patient's baseline - Hemoglobin has been stable since transfusion - Colonoscopy and EGD early afternoon 02/12/2025 without any signs of bleeding (2) Colitis: Status: Acute Assessment and plan: Colonoscopy did show some areas concerning for colitis - Patient will be started on Cipro and Flagyl and have his diet slowly advance with plan for discharge tomorrow morning 02/13/2025- (3) HTN (hypertension) with goal to be determined: Assessment and plan: - Hold antihypertensives, restart as tolerated (4) CHF (congestive heart failure): Status: Chronic Assessment and plan: - History of significantly reduced EF down to 17% in [facility] and March 2023 likely resulting in ICD placement - Most recent echocardiogram from November 2024 shows EF of 50 to 55% with no wall motion abnormalities - Echocardiogram showed mildly reduced EF 40 to 45%, down from 50 to 55% in November - Holding Lasix, Entresto, spironolactone as noted above (5) ICD (implantable cardioverter-defibrillator) in place: Assessment and plan: -Noted. Notes from 01/06/2025 by cardiology has been reviewed. Pacemaker seems to be working appropriately. (6) Paroxysmal A-fib: Assessment and plan: - Holding home Eliquis given acute GI bleed as noted above, plan to restart tomorrow 02/13/2025 - Continue home amiodarone, Toprol-XL (7) DM type 2 (diabetes mellitus, type 2): Assessment and plan: -hold home metformin (8) COPD (chronic obstructive pulmonary disease): Assessment and plan: -without acute exacerbation -continue home inhaler regimen (9) BPH (benign prostatic hyperplasia): Status: Chronic Assessment and plan: c/w flomax (10) Hyperlipidemia: Status: Acute Assessment and plan: -Continue with statins when tolerating p.o. Subjective Subjective Interval history since last seen: Patient was seen after his colonoscopy, states that he is tired but is doing well and looking forward to advancing his diet. He understands the plan to start antibiotics and likely discharge tomorrow morning. He has no other complaints or concerns at this time. Exam Narrative Exam Narrative: Well-appearing older gentleman sitting up in the bed in no acute distress, ANO x 4, heart regular rhythm, lungs clear to auscultation bilaterally, abdomen soft, nontender, nondistended Objective Last Vital Signs Temp 98.8 F 02/12/25 12:31 Pulse 88 02/12/25 13:01 Resp 15 02/12/25 13:01 BP 122/67 02/12/25 13:01 Pulse Ox 91 L 02/12/25 13:01 Laboratory Results - last 24 hr 02/10/25 02/12/25 16:47 05:35 WBC 3.61 L RBC 4.50 Hgb 12.7 L Hct 41.4 MCV 92 MCH 28.2 MCHC 30.7 L RDW 15.9 H Plt Count 188 MPV 8.6 Immature Gran % 0.6 Neutrophils % 51.8 Lymphocytes % 22.7 Monocytes % 17.2 Eosinophils % 6.9 Basophils % 0.8 Nucleated RBC % 0.0 Absolute Neutrophils 1.87 Absolute Lymphocytes 0.82 L Absolute Monocytes 0.62 Absolute Eosinophils 0.25 Absolute Basophils 0.03 Sodium 142 Potassium 3.4 L D Chloride 102 Carbon Dioxide 35.6 H Anion Gap 4.4 BUN 14 Creatinine 1.2 Est GFR (CKD-EPI 2020) 64.65 Glucose 92 Calcium 8.7 Ionized Calcium 1.07 L Total Bilirubin 0.3 AST 15 ALT 18 Alkaline Phosphatase 71 Total Protein 6.3 L Albumin 2.3 L PAWSS Have you Been Recently Intoxicated or Drunk Within the Last 30 days?: No Have you Ever Experienced Previous Episodes of Alcohol Withdrawal?: No Have you ever Experienced Withdrawal Seizures?: No Have you ever Experienced Delirium Tremens(DT)s?: No Have you ever undergone Alcohol Rehabilitation Treatment (i.e, inpt ot outpatient treatment programs)?: No Have you ever Experienced Blackouts?: No Have you ever Combined Alcohol with other Downers within the last 90 days?: No Have you ever Combined Alcohol with any other Substance of Abuse during the last 90 days?: No Positive Blood Alcohol level on Presentation? [PCS.BAL]: No Evidence of Increased Autonomic Activity (i.e. HR>120, tremor, sweating, agitation, nausea)?: No Result: 0 Time Spent with Patient Time Spent with Patient: >50 minutes Time was spent: preparing to see the patient(eg.review tests), obtaining and/or reviewing separately otained hiistory, ordering medications,tests, procedures, referring, communicating with other health healthcare translator, indepentently interpreting results, counseling the patient and care coordination
[2025-02-12] MEDS: Ciprofloxacin 500 MG TAB PO ×2 (15:46→20:40)
[2025-02-12] MEDS: metroNIDAZOLE 500 MG TAB PO ×2 (15:46→20:39)
--- NOTE | 2025-02-12 17:15 | W.PC.ACHO ---
Registration Status: ADM IN Primary Language: Preferred Language: ED Information & Data Chief Complaint GI Bleed 02/09/25 13:27 Triage Note Patient had diarrhea all day 02/09/25 11:55 yesterday and at 0400 this morning he started passing alot of blood with the diarrhea. Has had some incontinence (not normal), has now developed some generalized abdominal pain. feels weak and lethargic. no n/v. Some chills Medical / Surgical History (Last Reviewed 02/10/25 @ 11:40 by Ankur Akers DO) HTN (hypertension) with goal to be determined Paroxysmal A-fib COPD (chronic obstructive pulmonary disease) DM type 2 (diabetes mellitus, type 2) ASCVD (arteriosclerotic cardiovascular disease) ICD (implantable cardioverter-defibrillator) in place CHF with cardiomyopathy (HFpEF) heart failure with preserved ejection fraction Chronic GERD Elevated troponin Acute exacerbation of chronic obstructive pulmonary disease (COPD) Acute respiratory failure with hypoxia and hypercapnia (Last Updated 02/11/25 @ 15:04 by Ondina Tyson) Hx of colonoscopy with polypectomy (~02/11/25) Most Recent Vital Signs Temperature 36.0 C L 02/12/25 15:15 Temperature Source Temporal Artery Scan 02/12/25 15:15 Pulse 85 02/12/25 16:01 Pulse 88 02/12/25 16:01 Respiratory Rate 20 02/12/25 16:01 Respiratory Effort Normal, Non-Labored 02/09/25 18:46 Respiratory Depth Shallow 02/09/25 18:46 Respiratory Pattern Tachypnea 02/09/25 18:46 Blood Pressure 103/53 L 02/12/25 16:01 Blood Pressure Mean 68 02/12/25 16:01 Blood Pressure Position Supine 02/09/25 18:46 Pulse Oximetry 92 02/12/25 16:01 Oxygen Delivery Method Room Air 02/12/25 15:15 Oxygen Flow Rate 0 02/12/25 15:15 Pain Level 0 02/12/25 16:31 Comment Asleep 02/11/25 04:30 Allergies Penicillins Adverse Reaction (Verified 02/09/25 13:34) Skin Rash Active Medications Generic Name Dose Route Start Last Admin Trade Name Freq PRN Reason Stop Dose Admin Amiodarone HCl 200 mg 02/10/25 08:30 02/12/25 09:24 Amiodarone 200 Mg Tab PO 200 mg DAILY AMANDA Administration Budesonide/Formoterol Fumarate 2 puff 02/10/25 20:00 02/12/25 07:39 Budesonide/Formoterol 160/4.5 6 Gm 60 Puff Inh IH 2 puffs BID AMANDA Administration Ciprofloxacin HCl 500 mg 02/12/25 14:35 02/12/25 15:46 Ciprofloxacin 500 Mg Tab PO 500 mg BID AMANDA Administration Empagliflozin 10 mg 02/10/25 08:30 02/12/25 09:23 Empaglifozin 10 Mg Tab PO 10 mg DAILY AMANDA Administration Gabapentin 100 mg 02/10/25 08:30 02/12/25 09:23 Gabapentin 100 Mg Cap PO 100 mg DAILY AMANDA Administration Glucosamine/Chondroitin 1 cap 02/11/25 08:30 02/12/25 09:23 Glucosamine/Chondroitin Cap PO 1 cap DAILY AMANDA Administration Magnesium Chloride 64 mg 02/10/25 08:30 02/12/25 09:23 Magnesium Chloride 64 Mg Tabcr PO 64 mg DAILY AMANDA Administration Meloxicam 15 mg 02/09/25 20:00 02/11/25 20:53 Meloxicam 15 Mg Tab PO 15 mg HS AMANDA Administration Metoprolol Succinate 200 mg 02/10/25 08:30 02/12/25 09:23 Metoprolol Cr 100 Mg Tabcr PO 200 mg DAILY AMANDA Administration Metronidazole 500 mg 02/12/25 14:35 02/12/25 15:46 Metronidazole 500 Mg Tab PO 500 mg TID AMANDA Administration Pantoprazole Sodium 40 mg 02/10/25 07:30 02/12/25 09:24 Pantoprazole 40 Mg Tabcr PO 40 mg 0730 AMANDA Administration Pt's Own Semaglutide 1 each 02/11/25 08:30 02/11/25 15:15 [Ozempic] 2 Mg/Dose SC Not Given Pen Inj Th [facility] Rosuvastatin Calcium 40 mg 02/10/25 08:30 02/12/25 09:23 Rosuvastatin 20 Mg Tab PO 40 mg DAILY AMANDA Administration Sodium Biphosphate/Sodium Phosphate 133 ml 02/12/25 12:45 02/12/25 12:53 Na Phosphate Enema-Adult 133 Ml Btl [place] 02/13/25 12:46 1 btl Q30MIN AMANDA Administration Sodium Chloride 0 ml 02/09/25 12:40 02/12/25 08:20 Normal Saline Flush 10 Ml Syr IVP 10 ml PRN PRN Administration Sodium Cl/Sod Bicarb/Potass Cl/PEG 4,000 ml 02/10/25 12:00 02/10/25 13:21 Gavilyte-G 4000 Ml Btl PO 4 l DIRECTED AMANDA Administration Tamsulosin HCl 0.8 mg 02/09/25 20:00 02/11/25 20:52 Tamsulosin 0.4 Mg Capcr PO 0.8 mg HS AMANDA Administration Tiotropium [place]/Olodaterol 2 puff 02/10/25 08:30 02/12/25 07:38 Tiotropium/Olodaterol 10 Puff Inhaler IH 2 inh DAILY AMANDA Administration Trazodone HCl 50 mg 02/10/25 08:30 02/12/25 09:24 Trazodone 50 Mg Tab PO 50 mg DAILY AMANDA Administration IV IV Catheter Type [Right Hand] Saline Lock IV Catheter Type [Right Saline Lock Antecubital] IV Catheter Gauge [Right Hand] 20 IV Catheter Gauge [Right 18 Antecubital] Diet Orders Category Date Time Status Regular/Normal [DIET] Nutrition 02/12/25 Dinner Active Diagnostics 02/12/25 02/10/25 Range/Units 05:35 16:47 WBC 3.61 L (4.4-10.8) 10^3/uL RBC 4.50 (4.36-5.78) 10^6/uL Hgb 12.7 L (13.5-17.5) g/dL Hct 41.4 (40.0-50.0) % MCV 92 (80-95) fL MCH 28.2 (27.0-33.0) pg MCHC 30.7 L (32.0-36.0) % RDW 15.9 H (11.8-14.1) % Plt Count 188 (130-400) 10^3/uL MPV 8.6 (8.0-11.0) fL Immature Gran % 0.6 % Neutrophils % 51.8 % Lymphocytes % 22.7 % Monocytes % 17.2 % Eosinophils % 6.9 % Basophils % 0.8 % Nucleated RBC % 0.0 (0.0-0.3) % Absolute Neutrophils 1.87 (1.2-6.7) 10^3/uL Absolute Lymphocytes 0.82 L (1.2-3.4) 10^3/uL Absolute Monocytes 0.62 (0.1-0.8) 10^3/uL Absolute Eosinophils 0.25 (0.0-0.7) 10^3/uL Absolute Basophils 0.03 (0.0-0.2) 10^3/uL Sodium 142 (136-145) mmol/L Potassium 3.4 L D (3.5-5.1) mmol/L Chloride 102 (98-107) mmol/L Carbon Dioxide 35.6 H (21.0-32.0) mmol/L Anion Gap 4.4 (3-11) mmol/L BUN 14 (7-18) mg/dL Creatinine 1.2 (0.70-1.30) mg/dL Est GFR (CKD-EPI 2020) 64.65 (mL/min/1.73m2) Glucose 92 (74-106) mg/dL Calcium 8.7 (8.5-10.1) mg/dL Ionized Calcium 1.07 L (1.14-1.35) mmol/L Total Bilirubin 0.3 (0.2-1.0) mg/dL AST 15 (15-37) U/L ALT 18 (16-63) U/L Alkaline Phosphatase 71 (46-116) U/L Total Protein 6.3 L (6.4-8.2) g/dL Albumin 2.3 L (3.4-5.0) g/dL [id number] Documentation Fingerstick Glucose Start: 02/09/25 18:24 Freq: Status: Complete Protocol: Activity Type Activity Date Activity User E-sign Co-sign Detail Recorded Client Recorded Date Recorded By Document 02/09/25 18:23 BKG DAEMON(5) NVT-BG05 02/09/25 18:24 BKG DAEMON(6) Fingerstick Glucose Start: 02/10/25 07:12 Freq: Status: Active Protocol: Activity Type Activity Date Activity User E-sign Co-sign Detail Recorded Client Recorded Date Recorded By Document 02/10/25 20:21 BKG DAEMON(7) NVT-BG05 02/10/25 20:22 BKG DAEMON(8) Intake and Output - 24 Hour Total 02/09/25 11:50 thru 02/12/25 16:24 Intake Total 5355.000 Output Total 9435 Balance -4080.000 Weight 109.6 kg Intake: IV 3285.000 Oral 1780 Blood Product 290 Rbc Leuko Reduced Unit 290 [id number] Output: Urine 3635 Stool 5800 Other: Urine Color Yellow Urine Appearance Clear Urine Odor Strong Comment mixed with brown liquid stool Stool Size Small Stool Characteristics Liquid Emesis Description Bright Red Blood Falls Risk Assessment History of Falls Previous History 02/09/25 18:46 Contributing Factors Incontinence,Medications 02/09/25 18:46 Ambulatory Aids Independent 02/09/25 18:46 Tubes/Lines With any additional score 02/09/25 18:46 Gait Evaluation No gait disturbance 02/09/25 18:46 Cognition No cognitive impairment 02/09/25 12:02 Fall Total Score 41 02/09/25 18:46 Level of Risk Moderate Risk 02/09/25 18:46 Problems (Last Reviewed 02/10/25 @ 11:40 by Ankur Akers DO) Colitis (Acute) CHF (congestive heart failure) (Chronic) Anticoagulated (Acute) Umbilical hernia without obstruction and without gangrene (Acute) BPH (benign prostatic hyperplasia) (Chronic) GIB (gastrointestinal bleeding) (Chronic) Overweight (Acute) Hyperlipidemia (Acute) Notes 02/09/25 18:04 Nursing Notes by Matilda Pan 17:45 This rn called and s/w Dr Guevara ICU physician. Informed provider that pt is hypotensive again with BP ranging between 63/47- 74/47 and blood transfusion is finishing. This rn started levophed again at 8mcg and informed Dr Guevara. Per Dr uGevara: continue with Levophed with goal being MAP >65. No further orders at this time. 17:55 This rn infomrmed Kym DOOR PATCHER of conversation with Dr Guevara. Nursing Note: Initialized on 02/09/25 18:04 - END OF NOTE v v v v v v v v v Sending and/or Receiving Nurses: Please use comment section below to note any information pertinent to the patient hand-off not included above. Information / Comments:Pt progressively more ambulatory. Fluids to be d/c'd. Report received from: Lucy Arriaga ED RN
[2025-02-12] MEDS: Tamsulosin 0.4 MG CAPCR 0.8 MG PO (20:39)
[2025-02-12] MEDS: Meloxicam 15 MG TAB PO (20:39)
[2025-02-13 02:40] VITALS: BP 115/72; PULSE 98; RESP 16; TEMP 36.7; O2SAT 89
[2025-02-13 07:36] LABS: HCT 41.3 % (40.0-50.0); HGB 12.8 g/dL (13.5-17.5); MCH 27.8 pg (27.0-33.0); MCHC 31.0 % (32.0-36.0); MCV 90 fL (80-95); MPV 8.9 fL (8.0-11.0); Platelet Count 202 10^3/uL (130-400); RBC 4.60 10^6/uL (4.36-5.78); RDW 15.8 % (11.8-14.1); RDW-SD 52.3 fL; WBC 4.60 10^3/uL (4.4-10.8)
[2025-02-13] MEDS: Budesonide/Formoterol 160/4.5 6 GM 60 PUFF INH IH (07:59)
[2025-02-13] MEDS: Tiotropium/Olodaterol 10 PUFF INHALER 2 PUFF IH (07:59)
[2025-02-13 08:25] VITALS: BP 107/61; PULSE 109; RESP 16; TEMP 36.6; O2SAT 93
[2025-02-13] MEDS: Ciprofloxacin 500 MG TAB PO (08:30)
[2025-02-13] MEDS: metroNIDAZOLE 500 MG TAB PO (08:30)
[2025-02-13] MEDS: Metoprolol CR 100 MG TABCR 200 MG PO (08:31)
[2025-02-13] MEDS: Magnesium Chloride 64 MG TABCR PO (08:31)
[2025-02-13] MEDS: Amiodarone 200 MG TAB PO (08:32)
[2025-02-13] MEDS: Glucosamine/Chondroitin CAP 1 CAP PO (08:32)
[2025-02-13] MEDS: Rosuvastatin 20 MG TAB 40 MG PO (08:32)
[2025-02-13] MEDS: Empaglifozin 10 MG TAB PO (08:32)
[2025-02-13] MEDS: traZODone 50 MG TAB PO (08:32)
[2025-02-13] MEDS: Pantoprazole 40 MG TABCR PO (08:33)
[2025-02-13 08:52] VITALS: O2SAT 97
--- NOTE | 2025-02-13 08:58 | DSE_ITS ---
Date of service: 02/13/25 Time of Service: 08:58 DS: Diagnosis Discharge Diagnosis (1) GIB (gastrointestinal bleeding): Status: Chronic (2) Colitis: Status: Acute (3) HTN (hypertension) with goal to be determined: (4) CHF (congestive heart failure): Status: Chronic (5) ICD (implantable cardioverter-defibrillator) in place: (6) Paroxysmal A-fib: (7) DM type 2 (diabetes mellitus, type 2): (8) COPD (chronic obstructive pulmonary disease): (9) BPH (benign prostatic hyperplasia): Status: Chronic (10) Hyperlipidemia: Status: Acute Discharge Plan Disposition Patient Disposition: Home Condition: Good Discharge Details Reason For Visit: GIB Admit Date/Time: 02/09/25 15:55 Admit Provider: Aris Guevara Attending Provider: Aris Guevara [facility] [place] [facility] Course: Patient initially presented with signs and symptoms concerning for acute lower GI bleed despite having stable hemoglobin. He did not have any signs of bleeding during hospitalization, did not require blood transfusion. However, he did have upper and lower endoscopy on 02/12/2025, with colonoscopy showing signs concerning for colitis for which the patient was started on Cipro and Flagyl which will be continued for an additional 5 days. At which time, it was determined that the patient was stable for discharge home. Home Meds and New Rx's Prescriptions: New metronidazole 500 mg Tablet 500 mg PO TID Qty: 15 0RF ciprofloxacin HCl 500 mg Tablet 500 mg PO BID Qty: 10 0RF Continued meloxicam 15 mg tablet 15 mg PO QHS Patient Comments: 01/06/25 per pt med list RH fluticasone propion-salmeterol 500-50 mcg/dose blister with device 1 inh inhalation DAILY fluticasone propion-salmeterol [Advair Diskus] 100-50 mcg/dose blister with device 2 inh inhalation BID Patient Comments: 01/06/25 per pt med list. RH Entresto 49-51 mg tablet 1 tab PO BID [id number] 500-416.6-20 mg tablet 1 tab PO DAILY Patient Comments: 04/16/23 per pcp take 2 daily RH sildenafil 100 mg tablet 100 mg PO DAILY PRN Rx Instructions: administer 30 minutes to 4 hours before activity metformin 500 mg tablet 500 mg PO BID tamsulosin 0.4 mg capsule 0.8 mg PO QHS Ozempic 2 mg/dose (8 mg/3 mL) pen injector 2 mg subcut QWEEK amiodarone 200 mg tablet 200 mg PO DAILY apixaban 5 mg tablet 5 mg PO BID clopidogrel 75 mg tablet 75 mg PO DAILY empagliflozin 10 mg tablet 10 mg PO DAILY furosemide 40 mg tablet 40 mg PO DAILY pantoprazole 40 mg tablet,delayed release (DR/EC) 40 mg PO DAILY rosuvastatin 40 mg tablet 40 mg PO DAILY spironolactone 25 mg tablet 25 mg PO DAILY albuterol sulfate 90 mcg/actuation aerosol powdr breath activated 2 inh inhalation Q6H PRN gabapentin 100 mg capsule 100 mg PO DAILY magnesium chloride 64 mg tablet extended release 64 mg PO DAILY nitroglycerin 0.4 mg tablet, sublingual 0.4 mg sublingual Q5M PRN Rx Instructions: do not exceed 3 doses per episode omeprazole 20 mg capsule,delayed release(DR/EC) 20 mg PO DAILY Stiolto Respimat 2.5-2.5 mcg/actuation mist 2 puff inhalation DAILY metoprolol succinate [Toprol XL] 100 mg tablet extended release 24 hr 200 mg PO DAILY melatonin 3 mg capsule 3 mg PO HS PRNQty: 30 0RF albuterol sulfate 90 mcg/actuation HFA aerosol inhaler 2 inh INHALATION Q6H PRN Patient Comments: INHALE TWO PUFFS BY MOUTH EVERY 6 HOURS trazodone 50 mg tablet 50 mg PO DAILY fluticasone propion-salmeterol [Advair HFA] 230-21 mcg/actuation HFA aerosol inhaler 2 puff INHALATION BID Patient Comments: INHALE TWO PUFFS BY MOUTH TWICE A DAY RINSE THROAT AND MOUTH AFTER USE metformin 500 mg tablet extended release 24 hr 1,500 mg PO DAILY Patient Comments: TAKE THREE TABLETS BY MOUTH EVERY DAY Discharge Instructions Referrals: Jc Morales DO [Primary Care Provider, Medicine] Referral Note: post-discharge within 1-2 weeks Activity:: Activity as Tolerated Equipment/Supplies:: No Equipment Needed Diet:: As Tolerated Discharge Orders Discharge Orders: Discharge Order (Routine); Ordered 02/13/25 Ordered By: Sina Akhtar DS: Summary Time Spent with Patient providing and/or coordinating discharge services: Greater than 30 minutes Status at Discharge Functional status at discharge: independent ambulation Overall status at discharge: patient is back to baseline Mental Status: mental status grossly normal Speech and Movement: speech and movement normal Mood: congruent mood Affect: normal affect Quality:SDOH Health Related Social Needs: Health related social needs lonely/isolated Health related social needs details Pt not requesting help at this time. Exam Narrative Exam Narrative: Well-appearing older gentleman sitting up in the bed in no acute distress, ANO x 4, heart regular rhythm, lungs clear to auscultation bilaterally, abdomen soft, nontender, nondistended Psych Mental Status: mental status grossly normal Speech and Movement: speech and movement normal Mood: congruent mood Affect: normal affect DS: Data Vitals/I&O Vitals and I&O: Vital Signs Temperature 97.9 F 02/13/25 08:25 Temperature Source Tympanic 02/13/25 08:25 Pulse 109 H 02/13/25 08:25 Pulse 88 02/12/25 16:01 Respiratory Rate 16 02/13/25 08:25 Respiratory Effort Normal, Non-Labored 02/09/25 18:46 Respiratory Depth Shallow 02/09/25 18:46 Respiratory Pattern Tachypnea 02/09/25 18:46 Blood Pressure 107/61 02/13/25 08:25 Blood Pressure Mean 76 02/13/25 08:25 Blood Pressure Position Supine 02/09/25 18:46 Pulse Oximetry 97 02/13/25 08:52 Oxygen Delivery Method Room Air 02/13/25 08:52 Oxygen Flow Rate 0 02/13/25 08:52 Pain Level 0 02/13/25 08:57 Comment Patient states he has COPD and 89% on room air laying down in bed is normal for him 02/13/25 02:40 Comment Asleep 02/11/25 04:30 Intake & Output 02/12/25 02/13/25 02/13/25 17:59 05:59 17:59 Intake Total 480 / 480 670 / 1150 Output Total 1100 / 1100 1025 / 2125 600 / 600 Balance -620 / -620 -355 / -975 -600 / -600 Weight 241 lb 10.026 oz 238 lb 15.697 oz Intake: IV 0 / 0 10 / 10 Oral 480 / 480 660 / 1140 Output: Urine 1100 / 1100 1025 / 2125 600 / 600 Other: Urine Color Yellow Yellow Urine Appearance Clear Clear Urine Odor Strong Normal Normal Comment mixed with brown liquid stool Pt voids ind. in the toilet. Stool Size Small Small Small Stool Characteristics Liquid Liquid Soft Brown Brown Data Completed and Pending Labs on day of discharge: Labs from last 24 hours 02/13/25 06:40 WBC 4.60 RBC 4.60 Hgb 12.8 L Hct 41.3 MCV 90 MCH 27.8 MCHC 31.0 L RDW 15.8 H Plt Count 202 MPV 8.9 PFSH All Active Problems (Updated 02/12/25 @ 15:00 by Sina Akhtar MD) Colitis (Acute) CHF (congestive heart failure) (Chronic) Anticoagulated (Acute) Umbilical hernia without obstruction and without gangrene (Acute) BPH (benign prostatic hyperplasia) (Chronic) GIB (gastrointestinal bleeding) (Chronic) Altered mental status (Acute) Elevated troponin (Acute) Acute respiratory failure with hypoxia and hypercarbia (Acute) Restless leg syndrome (Acute) Presence of cardiac defibrillator (Acute) Overweight (Acute) NSTEMI (non-ST elevated myocardial infarction) (Acute) Insomnia (Acute) Hypertensive disorder (Chronic) COPD with chronic bronchitis (Acute) Bilateral cataracts (Acute) Atrial flutter (Acute) Atherosclerotic coronary vascular disease (Acute) Acid reflux (Chronic) Hyperlipidemia (Acute) Diabetes mellitus (Chronic) Medical History (Updated 02/12/25 @ 15:00 by Sina Akhtar MD) HTN (hypertension) with goal to be determined Paroxysmal A-fib COPD (chronic obstructive pulmonary disease) DM type 2 (diabetes mellitus, type 2) ASCVD (arteriosclerotic cardiovascular disease) Known LAD stenosis s/p PCIx2 to DECK LID FITTER RCA per [facility], PCI to LAD RH ICD (implantable cardioverter-defibrillator) in place [employer] cobalt placed at [facility] 04/15/23 CHF with cardiomyopathy (HFpEF) heart failure with preserved ejection fraction 04/15 EF 17% per [facility] RH Chronic GERD Elevated troponin Acute exacerbation of chronic obstructive pulmonary disease (COPD) Acute respiratory failure with hypoxia and hypercapnia Surgical History (Updated 02/11/25 @ 15:04 by Ondina Tyson) Hx of colonoscopy with polypectomy (~02/11/25) Social History Smoking/Tobacco Use Status: Former Tobacco Use Smoking risk assessment performed?: Yes Alcohol Intake: current Alcohol Intake frequency: 3 or more drinks per day Substance use type: does not use Housing: house Time Spent with Patient Time Spent with Patient: <45 minutes Time was spent: preparing to see the patient(eg.review tests), obtaining and/or reviewing separately otained hiistory, ordering medications,tests, procedures, referring, communicating with other health adult care provider, indepentently interpreting results, counseling the patient and care coordination
--- NOTE | 2025-02-13 09:16 | PTTR_ITS ---
PT Notes Visit Reasons: GIB Inpatient Physical Therapy Treatment Note [facility] Date: 02/13/2025 Referring Doctor: Aris Guevara MD PT Orders: PT CONSULT: Eval/Treat Precautions: Fall. Standard. Activity as tolerated. Patient Profile/Admitting Diagnosis: Jonny is a 70-year-old male admitted for management of GI bleeding, HLD, HTN, ASCVD, PAF, and DM type II. He came to the ED on 02/09/2025 with chief complaints of bright red blood per rectum, multiple diarrhea episodes, minimal abdominal pain, and generalized weakness. SUBJECTIVE: [] OBJECTIVE: []? PAIN: [] VITALS: ? Pre-Treatment: [] ? Post-Treatment: []? Therapeutic Activities (23882d[]): Direct one-on-one instruction in dynamic activities to improve functional performance. ?? [] Provided verbal cues for equipment management and technique [] Provided instruction in gait pattern [] Patient education regarding pacing and breathing techniques to maximize activity tolerance? GAIT? Assistive Device: []? Weight bearing:full Assist: SBA ? Distance:? [] ? Deviation: [] ?Facilitate safe and correct performance of level surface ambulation covering a distance of about 400 feet using no assistive device with just standby assist and minimal verbal cueing by PT for self pacing and directional changes only. Reciprocal swing through heel-toe gait pattern seen. Minimal shortness of breath resolved with seated rest. Sit to stand: NBOS/Rhomberg Standing hip abduction Standing marching Standing calf raises STAIRS:[] ? Therapeutic Exercises (48964y[]): Direct one-on-one instruction in therapeutic exercises to develop strength, endurance, range of motion and flexibility. Provided skilled instruction in proper exercise performance Provided skilled manual cues to facilitate proper muscle recruitment and/or form: [] ? Exercises ? []Guided patient with safe and correct performance of seated exercises as follows: Deep breathing exercises with chest expansion techniques x 5 Seated marches x 10 Seated bilateral LAQs x 10 Deep breathing exercises with chest expansion techniques x 5 Seated hip abduction x 10 Deep breathing exercises with chest expansion techniques x 5 ? Neuromuscular Re-education ([id number][]): Activities that facilitate re-education of movement balance, posture, coordination, and proprioception or kinesthetic sense, requiring skilled tactile and verbal cues ? Exercises/techniques: ? [] ASSESSMENT:? [] PLAN: []Plan of Care/Treatment Plan: 1-2x/day, 7 days/week x 1 week. Plan of care has been reviewed with the DENTAL OFFICE RECEPTIONIST providing the service under Physical Therapy direction. Initiate Physical Therapy intervention for pain management as needed, strengthening, bed mobility, transfers, gait, stairs, and balance training. TREATMENT CODE/TIME: [] DISCHARGE RECOMMENDATION: HHPT
--- NOTE | 2025-02-13 15:19 | PT.INNT ---
PT Notes Visit Reasons: GIB Did not see patient today as he waas discharged.
== END 2025-02-13 11:38 | disposition home or self-care (01) | DRG 392 ==
LOC: ER 17:05 → ICU 18:41 → MS 02-12 16:34
PROVIDERS: Surgery; Admitting Provider Hospitalist; Emergency Provider Physician Assistant; PCP Specialist/Technologist Athletic Trainer; Responsible Provider Family Medicine; Visit Provider Hospitalist
PROC: 0DJ08ZZ Inspection of Upper Intestinal Tract, Via Natural or Artificial Opening Endoscopic (ICD-10-PCS; CPT 45380; principal; 2025-02-12 13:45)
DX: K52.9 Noninfective gastroenteritis and colitis, unspecified (principal); I42.9 Cardiomyopathy, unspecified; K62.5 Hemorrhage of anus and rectum; I48.92 Unspecified atrial flutter; I47.20 Ventricular tachycardia, unspecified; I50.22 Chronic systolic (congestive) heart failure; E78.5 Hyperlipidemia, unspecified; I25.10 Atherosclerotic heart disease of native coronary artery without angina pectoris; I48.0 Paroxysmal atrial fibrillation; E66.3 Overweight; J44.9 Chronic obstructive pulmonary disease, unspecified; N40.0 Benign prostatic hyperplasia without lower urinary tract symptoms; K57.10 Diverticulosis of small intestine without perforation or abscess without bleeding; Z79.01 Long term (current) use of anticoagulants; Z95.810 Presence of automatic (implantable) cardiac defibrillator; I95.9 Hypotension, unspecified; E11.9 Type 2 diabetes mellitus without complications; R74.8 Abnormal levels of other serum enzymes; G25.81 Restless legs syndrome; G47.00 Insomnia, unspecified; I25.2 Old myocardial infarction; K21.9 Gastro-esophageal reflux disease without esophagitis; I11.0 Hypertensive heart disease with heart failure; Z95.5 Presence of coronary angioplasty implant and graft; Z79.85 Long-term (current) use of injectable non-insulin antidiabetic drugs; R45.89 Other symptoms and signs involving emotional state; K63.89 Other specified diseases of intestine
CPT/HCPCS: 45380; 43235; 00123; 36415; 36430; 80048; 80053; 80076; 83690; 85027; 86850; 86900; 86901; 86920; 88305; 93306; 93308; 94640; 94761; 96365; 96366; 96367; 97110; 97530; 99222; 99232; 99285; 99291; 74174; 82330; 83605; 83735; 85014; 85018; 85025; 85610; 85730; 88361; 93005; 93010; 94664; 94760; 99223; 99233; 99239; J2003; J2371; J2704; J3490; J7168; J7620; P9016

== ENCOUNTER 2025-06-15 11:56 | Emergency (ER) | payer MEDICARE, SELFPAY ==
[2025-06-15] VITALS (69 sets, daily range): BP systolic 62–104; BP diastolic 20–70; PULSE 93–122; RESP 14–27; TEMP 36.3–36.7; O2SAT 84–96
--- NOTE | 2025-06-15 12:00 | RT.EKG_ITS ---
APPROVED REPORT Exam: Resting ECG Reason for Exam: SOB Patient Location: E HR:103 bpm ECG Measurements Heart Rate 103 AXIS IL 164 P 41 QRSd 131 QRS 50 QT 343 T 252 QTc 450 Conclusion Sinus tachycardia...rate> 99 Probable left atrial enlargement...P >50mS, <-0.10mV V1 Left bundle branch block...QRSd>120, broad/notched R No Occlusion [place]
--- NOTE | 2025-06-15 12:16 | W.ED.GENAD ---
Discharge Plan Discharge Details Chief Complaint: GenMedical Primary Care Provider: Jc Morales ED Provider: Fritz Tran Home Meds and New Rx's Prescriptions: No Action meloxicam 15 mg tablet 30 mg PO QHS Patient Comments: 01/06/25 per pt med list RH fluticasone propion-salmeterol 500-50 mcg/dose blister with device 1 inh inhalation DAILY fluticasone propion-salmeterol [Advair Diskus] 100-50 mcg/dose blister with device 2 inh inhalation BID Patient Comments: 01/06/25 per pt med list. RH Entresto 49-51 mg tablet 1 tab PO BID [id number] 500-416.6-20 mg tablet 1 tab PO DAILY Patient Comments: 04/16/23 per pcp take 2 daily RH sildenafil 100 mg tablet 100 mg PO DAILY PRN Rx Instructions: administer 30 minutes to 4 hours before activity metformin 500 mg tablet 500 mg PO BID tamsulosin 0.4 mg capsule 0.8 mg PO QHS Ozempic 2 mg/dose (8 mg/3 mL) pen injector 2 mg subcut QWEEK amiodarone 200 mg tablet 200 mg PO DAILY apixaban 5 mg tablet 5 mg PO BID clopidogrel 75 mg tablet 75 mg PO DAILY empagliflozin 10 mg tablet 10 mg PO DAILY furosemide 40 mg tablet 40 mg PO DAILY pantoprazole 40 mg tablet,delayed release (DR/EC) 40 mg PO DAILY rosuvastatin 40 mg tablet 40 mg PO DAILY spironolactone 25 mg tablet 25 mg PO DAILY albuterol sulfate 90 mcg/actuation aerosol powdr breath activated 2 inh inhalation Q6H PRN gabapentin 100 mg capsule 100 mg PO DAILY magnesium chloride 64 mg tablet extended release 64 mg PO DAILY nitroglycerin 0.4 mg tablet, sublingual 0.4 mg sublingual Q5M PRN Rx Instructions: do not exceed 3 doses per episode omeprazole 20 mg capsule,delayed release(DR/EC) 20 mg PO DAILY Stiolto Respimat 2.5-2.5 mcg/actuation mist 2 puff inhalation DAILY metoprolol succinate [Toprol XL] 100 mg tablet extended release 24 hr 200 mg PO DAILY melatonin 3 mg capsule 3 mg PO HS PRNQty: 30 0RF albuterol sulfate 90 mcg/actuation HFA aerosol inhaler 2 inh INHALATION Q6H PRN Patient Comments: INHALE TWO PUFFS BY MOUTH EVERY 6 HOURS trazodone 50 mg tablet 25 mg PO DAILY fluticasone propion-salmeterol [Advair HFA] 230-21 mcg/actuation HFA aerosol inhaler 2 puff INHALATION BID Patient Comments: INHALE TWO PUFFS BY MOUTH TWICE A DAY RINSE THROAT AND MOUTH AFTER USE metformin 500 mg tablet extended release 24 hr 1,500 mg PO DAILY Patient Comments: TAKE THREE TABLETS BY MOUTH EVERY DAY ciprofloxacin HCl 500 mg tablet 500 mg PO BID Qty: 10 0RF metronidazole 500 mg tablet 500 mg PO TID Qty: 15 0RF HPI General Date/Time Provider Initiated Documentation: 06/15/25 12:15. HPI Narrative: 70 year-old male presents to ED today by POV/ambulating with a chief complaint of fatigue, body aches, dizziness, weakness, nausea and vomiting isolated to two days ago with onset for the past 1-2 weeks per his . Quality described as generalized malaise, denies severe cough- does endorse baseline COPD, no radiation to fever, black/tarry stools- endorses diarrhea, denies hematemesis, denies chest pain, denies hemoptysis. Severity is described as severe for weakness. Palliating factors include nothing helping. Provoking factors include nothing specific. Events leading up to the incident/Associated Symptoms: Patient notes he is having poor PO intake, peeing only 1-2 times daily, took his BP this morning at 115 systolic, then took his HTN meds. Patient is anticoagulated on Eliquis. Related Data Home Medications ?Medication ?Instructions ?Recorded ?Confirmed glucosamine 500 pj-frkxawpan-zou 1 tab PO DAILY 04/16/23 06/15/25 no1 416.6 mg-C 20 ly-fzak-dnth tablet Held on 06/15/25. Instructions: Pt Stopped/Never Started metformin 500 mg tablet 500 mg PO BID 04/16/23 06/15/25 Held on 06/15/25. Instructions: Pt Stopped/Never Started semaglutide 2 mg/dose (8 mg/3 mL) 2 mg subcut QWEEK 04/16/23 06/15/25 subcutaneous pen injector (Ozempic) sildenafil 100 mg tablet 100 mg PO DAILY PRN 04/16/23 06/15/25 tamsulosin 0.4 mg capsule 0.8 mg PO QHS 04/16/23 06/15/25 amiodarone 200 mg tablet 200 mg PO DAILY 04/22/23 06/15/25 apixaban 5 mg tablet 5 mg PO BID 04/22/23 06/15/25 clopidogrel 75 mg tablet 75 mg PO DAILY 04/22/23 06/15/25 empagliflozin 10 mg tablet 10 mg PO DAILY 04/22/23 06/15/25 furosemide 40 mg tablet 40 mg PO DAILY 04/22/23 06/15/25 pantoprazole 40 mg tablet,delayed 40 mg PO DAILY 04/22/23 06/15/25 release rosuvastatin 40 mg tablet 40 mg PO DAILY 04/22/23 06/15/25 albuterol sulfate 90 mcg/actuation 2 inh inhalation Q6H PRN 07/06/24 06/15/25 breath activated powder inhaler gabapentin 100 mg capsule 100 mg PO DAILY 07/06/24 06/15/25 Held on 06/15/25. Instructions: Pt Stopped/Never Started magnesium chloride 64 mg 64 mg PO DAILY 07/06/24 06/15/25 tablet,extended release nitroglycerin 0.4 mg sublingual 0.4 mg sublingual Q5M PRN 07/06/24 06/15/25 tablet omeprazole 20 mg capsule,delayed 20 mg PO DAILY 07/06/24 06/15/25 release spironolactone 25 mg tablet 25 mg PO DAILY 07/06/24 06/15/25 tiotropium 2.5 mcg-olodaterol 2.5 2 puff inhalation DAILY 07/06/24 06/15/25 mcg/actuation mist for inhalation (Stiolto Respimat) Held on 06/15/25. Instructions: Pt Stopped/Never Started metoprolol succinate 100 mg 200 mg PO DAILY 12/04/24 06/15/25 tablet,extended release 24 hr (Toprol XL) melatonin 3 mg capsule 3 mg PO HS PRN #30 caps 12/07/24 06/15/25 fluticasone 100 mcg-salmeterol 50 2 inh inhalation BID 01/06/25 06/15/25 mcg/dose blistr powdr for inhalation (Advair Diskus) Held on 06/15/25. Instructions: Duplicate fluticasone 500 mcg-salmeterol 50 1 inh inhalation DAILY 01/06/25 06/15/25 mcg/dose blistr powdr for inhalation meloxicam 15 mg tablet 30 mg PO QHS 01/06/25 06/15/25 sacubitril 49 mg-valsartan 51 mg 1 tab PO BID 01/06/25 06/15/25 tablet (Entresto) albuterol sulfate 90 mcg/actuation 2 inh inhalation Q6H PRN 02/09/25 06/15/25 aerosol inhaler fluticasone propionate 230 2 puff inhalation BID 02/09/25 06/15/25 mcg-salmeterol 21 mcg/actuation HFA inhaler (Advair HFA) metformin 500 mg tablet,extended 1,500 mg PO DAILY 02/09/25 06/15/25 release 24 hr trazodone 50 mg tablet 25 mg PO DAILY 02/09/25 06/15/25 ciprofloxacin HCl 500 mg tablet 500 mg PO BID #10 tabs 02/13/25 06/15/25 Held on 06/15/25. Instructions: Pt Stopped/Never Started metronidazole 500 mg tablet 500 mg PO TID #15 tabs 02/13/25 06/15/25 Held on 06/15/25. Instructions: Pt Stopped/Never Started Previous Rx's ?Medication ?Instructions ?Recorded melatonin 3 mg capsule 3 mg PO HS PRN #30 caps 12/07/24 ciprofloxacin HCl 500 mg tablet 500 mg PO BID #10 tabs 02/13/25 Held on 06/15/25. Instructions: Pt Stopped/Never Started metronidazole 500 mg tablet 500 mg PO TID #15 tabs 02/13/25 Held on 06/15/25. Instructions: Pt Stopped/Never Started Allergies Allergy/AdvReac Type Severity Reaction Status Date / Time Penicillins AdvReac Skin Rash Verified 02/09/25 13:34 General Stated Complaint: GenMedical ROD: 3 Review of Systems All systems reviewed & are unremarkable except as noted in HPI and below Exam Narrative Exam Narrative: GENERAL APPEARANCE: Obesity, toxic, awake and alert, atraumatic, moderate acute distress. SKIN: Warm, pale, dry, intact, without rashes/lesions/ulcerations. HEAD: Normocephalic, atraumatic, normal hair distribution for gender/age. EYES: Pale conjunctiva, no exudates on lids/lashes. ENT: Nares patent, no circumoral cyanosis, no facial swelling NECK: Supple, trachea midline, painless cervical ROM. LUNGS/CHEST: Lungs CTA bilaterally-no clear rales at bases, no wheezing or rhonchi, poor air movement at bases, labored respirations, increased A/P diameter, symmetrical expansion, no chest wall deformity HEART (CV/PV): Regular rate and rhythm without murmur, no peripheral edema, no JVD. ABDOMEN: Soft, non-distended, no guarding, umbilical tenderness without Rovsing's, negative Adhikari's. MSK: Normal ROM, no swelling/deformity to bilateral UEs or LEs, moving all extremities without weakness, no cyanosis, spine midline without tenderness, normal curvature. NEURO: Mental Status AAOx4 - alert to person, place, time, events No facial droop, no forehead involvement. Motor: No focal weakness - strength 5/5 in bilateral UEs and LEs, proximal and distal, symmetric. Sensory: sensation intact to light touch globally. Gait normal: patient ambulated without ataxia into ED room. PSYCH: euthymic, cooperative, pleasant, appropriate speech Course Vital Signs Vital signs: Vital Signs Temperature 36.7 C 06/15/25 12:08 Pulse 104 H 06/15/25 12:08 Respiratory Rate 20 06/15/25 12:08 Blood Pressure 64/37 L 06/15/25 12:08 Pulse Oximetry 89 L 06/15/25 12:08 Temperature 36.7 C 06/15/25 12:12 Pulse 104 H 06/15/25 12:12 Respiratory Rate 20 06/15/25 12:12 Blood Pressure 64/37 L 06/15/25 12:12 Blood Pressure Position Sitting 06/15/25 12:12 Pulse Oximetry 89 L 06/15/25 12:12 Oxygen Delivery Method Room Air 06/15/25 12:12 Oxygen Flow Rate 0 06/15/25 12:12 Medical Decision Making This dictation utilizes [id number] dictation software and may contain unedited grammatical errors. 70 year-old male presents to ED today by POV/ambulating with a chief complaint of fatigue, body aches, dizziness, weakness, nausea and vomiting isolated to two days ago with onset for the past 1-2 weeks per his . Quality described as generalized malaise, denies severe cough- does endorse baseline COPD, no radiation to fever, black/tarry stools- endorses diarrhea, denies hematemesis, denies chest pain, denies hemoptysis. Severity is described as severe for weakness. Palliating factors include nothing helping. Provoking factors include nothing specific. Events leading up to the incident/Associated Symptoms: Patient notes he is having poor PO intake, peeing only 1-2 times daily, took his BP this morning at 115 systolic, then took his HTN meds. Patients' medical history: Hypertension, paroxysmal atrial fibrillation with implanted pacemaker/defibrillator, COPD, T2DM, CHF with preserved EF, BPH, history of NSTEMI, hyperlipidemia. Family and social history: Lives at home with his , no exercise regimen, poor p.o. intake lately. Pertinent exam findings / vital signs include poor air movement at base of lungs, no clear rales, mildly tachycardic on arrival, severely hypotensive on arrival but mentating fine with BP 64/37, central abdominal tenderness without palpable pulsation, neuro intact. Differential / pathologies of concern include dehydration, sepsis, COPD, viral syndrome like flu, CHF exacerbation, ACS, rhabdomyolysis, acute renal failure. Diagnostic studies of: -CBC, CMP, serial troponins, BNP, lipase, magnesium, lactate, VBG, respiratory PCR swab, D-dimer, type and screen, urinalysis, blood cultures, EKG. CT ABD/Pelvis (wo?), CTA Chest PE? - Initial lactate negative - 1.5 - VBG shows respiratory acidosis- CO mildly elevated in the setting of COPD - CBC shows mild chronic anemia 11.9 HgB, no leukocytosis - Magnesium 2.0 - Lipase WNL - Trop elevated 185 - has past troponins much higher at 190 - q1hr repeat 175 trending down - further repeat is 180. drawn early by RN not a 3hr- 2.5 hour trop. - BNP elevated to 13,220 - PCR swab neg covid, neg flu, neg RSV - D-dimer 988, patient is anticoagulated and YEARS criteria negative, PE is not the most likely diagnosis, will hold CTA for now while awaiting SCr - CK negative - Type & Screen O NEG, neg Ab screen - repeat VBG shows slight worsening of pH to 7.25 from 7.26 - repeat BMP shows SCr of 7.06, BUN 80 Interventions of: - IVF NS @ 200 mL/hr initially while awaiting labs to not cause pulmonary edema. Bolus 500mL @ 1345 - improving BP to 88/42 - Craig insertion 1345 - output ~30mL in 2+ hours - Paged [facility] [place] Nephrology consult @ [phone], spoke with Dr. Oneill of Nephrology- we discussed patients case, EF, adding urine Cr & urine Na+, giving another 1L IVF NS and 1 dose albumin for an attempt at improvement of patients now slightly worse creatinine- they are happy to reconsult. They cleared NorEpi for use if patient needs. ED Course/Assessment/Plan: 70-year-old male presents with generalized weakness, poor p.o. intake, decreased urine output and bodyaches with complex comorbidities of COPD, CHF, history of NSTEMI, diabetes, atrial fibrillation, anticoagulated on Eliquis as well as taking clopidogrel, he has a implanted cardiac defibrillator/pacemaker. His initial metabolic panel shows a creatinine of 7.03 likely in the setting of poor oral intake and continuing to take his Lasix daily causing acute renal failure, fluid resuscitation in this patient is complicated by his CHF, and was persistently hypotensive in the systolic upper 60s throughout the visit did respond to a 500 mL bolus to systolic of 80s, the patient had some mild abdominal tenderness. Patient likely needs dialysis, there is no significant pulmonary edema so some further fluid resuscitation is a reasonable attempt as recommended by nephrology before reconsulting for possible transfer for emergent dialysis. Patient signed out to oncoming provider Socorro Beltran NP at shift change. Disposition of Acute Renal Failure. Patient verbalized understanding of the plan and return to ED criteria and engaged in shared decision making. Medical Records Medical records reviewed: Yes I reviewed the patient's medical records. Imaging Data Radiologic Study: Attestation: I personally reviewed and interpreted this imaging study as follows: Imaging: CT Scan My impression: Radiology read pending at sign-out, question hydronephrosis L Radiologic Study #2: Attestation: I personally reviewed and interpreted this imaging study as follows: Imaging: X-Ray My impression: No pulmonary edema, rad read pending at sign out Lab Data Lab results reviewed: Yes I reviewed the patient's lab results. Labs: 06/15/25 13:23 Blood Blood Culture - Pending 06/15/25 12:26 Blood Blood Culture - Pending Laboratory Tests Range/Units 06/15/25 06/15/25 06/15/25 12:30 12:33 13:29 WBC (4.4-10.8) 10^3/uL 6.83 RBC (4.36-5.78) 10^6/uL 4.20 L Hgb (13.5-17.5) g/dL 11.9 L Hct (40.0-50.0) % 37.5 L MCV (80-95) fL 89 MCH (27.0-33.0) pg 28.3 MCHC (32.0-36.0) % 31.7 L RDW (11.8-14.1) % 14.5 H Plt Count (130-400) 10^3/uL 238 MPV (8.0-11.0) fL 9.0 Immature Gran % % 0.0 Neutrophils % % 72.0 Band Neutrophils % % 6 Lymphocytes % % 10.0 Atypical Lymphs % % 2 Monocytes % % 7.0 Eosinophils % % 1.0 Basophils % % 1.0 Metamyelocytes % 1 Nucleated RBC % (0.0-0.3) % 0.0 Absolute Neutrophils (1.2-6.7) 10^3/uL 5.33 Absolute Lymphocytes (1.2-3.4) 10^3/uL 0.82 L Absolute Monocytes (0.1-0.8) 10^3/uL 0.48 Absolute Eosinophils (0.0-0.7) 10^3/uL 0.07 Absolute Basophils (0.0-0.2) 10^3/uL 0.07 RBC Morphology Normal D-Dimer (<500) ng/mlFEU 988 H VBG pH (7.31-7.41) 7.26 L VBG pCO2 (41-51) mmHg 52 H VBG pO2 mmHg 31 VBG HCO3 (23-28) mmol/L 23 VBG Total CO2 (24-29) mmol/L 22 L VBG O2 Saturation % 53 VBG Base Excess (-2-3) mmol/L -4 L VBG Lactate (<or=2.0) mmol/L 1.5 Sodium (136-145) mmol/L 130 L Potassium (3.5-5.1) mmol/L 4.8 Chloride (98-107) mmol/L 93 L Carbon Dioxide (20.0-31.0) mmol/L 24.0 Anion Gap (3-11) mmol/L 12.6 H BUN (9-23) mg/dL 79 H Creatinine (0.73-1.18) mg/dL 7.03 H* Est GFR (CKD-EPI 2020) (mL/min/1.73m2) 7.75 Glucose (74-106) mg/dL 170 H Calcium (8.3-10.6) mg/dL 8.4 Magnesium (1.6-2.6) mg/dL 2.0 Total Bilirubin (0.2-1.2) mg/dL 0.3 AST (<34) U/L 12 ALT (10-49) U/L 13 Alkaline Phosphatase (46-116) U/L 84 Creatine Kinase (46-171) U/L Troponin I (<54) ng/L 186 H* 175 H* NT-Pro-B Natriuret Pep (<300) pg/mL 40927 H Total Protein (5.7-8.2) g/dL 6.5 Albumin (3.2-5.0) g/dL 3.7 Lipase (<53) U/L 16 Urine Color (Yellow) Urine Clarity (Clear) Urine pH (5-8) Ur Specific Bearden (1.005-1.025) Urine Protein (Neg-Trace) mg/dL Urine Ketones (Negative) mg/dL Urine Blood (Negative) Urine Nitrite (Negative) Urine Bilirubin (Negative) Urine Urobilinogen (Up to 0.2) mg/dL Ur Leukocyte Esterase (Negative) Urine RBC (0-2) HPF Urine WBC (0-5) HPF Ur Epithelial Cells (Negative) HPF Urine Crystals (Negative) HPF Urine Bacteria (Negative) HPF Urine Casts (Negative) LPF Urine Mucus (Negative) Urine Other (Negative) Ur Culture Indicated? Urine Glucose (Negative) mg/dL COVID-19 Source Nasopharynx SARS-CoV-2 (PCR) (Negative) Negative Influenza Type A (PCR) (Negative) Negative Influenza Type B (PCR) (Negative) Negative RSV (PCR) (Negative) Negative ABO/Rh O Negative Antibody Screen NEGATIVE Range/Units 06/15/25 06/15/25 06/15/25 13:33 14:06 14:24 WBC (4.4-10.8) 10^3/uL RBC (4.36-5.78) 10^6/uL Hgb (13.5-17.5) g/dL Hct (40.0-50.0) % MCV (80-95) fL MCH (27.0-33.0) pg MCHC (32.0-36.0) % RDW (11.8-14.1) % Plt Count (130-400) 10^3/uL MPV (8.0-11.0) fL Immature Gran % % Neutrophils % % Band Neutrophils % % Lymphocytes % % Atypical Lymphs % % Monocytes % % Eosinophils % % Basophils % % Metamyelocytes % Nucleated RBC % (0.0-0.3) % Absolute Neutrophils (1.2-6.7) 10^3/uL Absolute Lymphocytes (1.2-3.4) 10^3/uL Absolute Monocytes (0.1-0.8) 10^3/uL Absolute Eosinophils (0.0-0.7) 10^3/uL Absolute Basophils (0.0-0.2) 10^3/uL RBC Morphology D-Dimer (<500) ng/mlFEU VBG pH (7.31-7.41) 7.25 L VBG pCO2 (41-51) mmHg 55 H VBG pO2 mmHg 30 VBG HCO3 (23-28) mmol/L 24 VBG Total CO2 (24-29) mmol/L 23 L VBG O2 Saturation % 49 VBG Base Excess (-2-3) mmol/L -3 L VBG Lactate (<or=2.0) mmol/L Sodium (136-145) mmol/L Potassium (3.5-5.1) mmol/L Chloride (98-107) mmol/L Carbon Dioxide (20.0-31.0) mmol/L Anion Gap (3-11) mmol/L BUN (9-23) mg/dL Creatinine (0.73-1.18) mg/dL Est GFR (CKD-EPI 2020) (mL/min/1.73m2) Glucose (74-106) mg/dL Calcium (8.3-10.6) mg/dL Magnesium (1.6-2.6) mg/dL Total Bilirubin (0.2-1.2) mg/dL AST (<34) U/L ALT (10-49) U/L Alkaline Phosphatase (46-116) U/L Creatine Kinase (46-171) U/L 54 Troponin I (<54) ng/L NT-Pro-B Natriuret Pep (<300) pg/mL Total Protein (5.7-8.2) g/dL Albumin (3.2-5.0) g/dL Lipase (<53) U/L Urine Color (Yellow) Dark Yellow Urine Clarity (Clear) Sl Cloudy Urine pH (5-8) 5.0 Ur Specific Bearden (1.005-1.025) 1.025 Urine Protein (Neg-Trace) mg/dL 100 H Urine Ketones (Negative) mg/dL Trace H Urine Blood (Negative) Small H Urine Nitrite (Negative) Negative Urine Bilirubin (Negative) Small H Urine Urobilinogen (Up to 0.2) mg/dL 0.2 Ur Leukocyte Esterase (Negative) Negative Urine RBC (0-2) HPF 5-10 H Urine WBC (0-5) HPF 0-2 Ur Epithelial Cells (Negative) HPF Few Urine Crystals (Negative) HPF Moderate Amorphous Urine Bacteria (Negative) HPF Rare Urine Casts (Negative) LPF 3-5 Fine Granular Urine Mucus (Negative) Trace Urine Other (Negative) Few Renal Ur Culture Indicated? No Urine Glucose (Negative) mg/dL 250 H COVID-19 Source SARS-CoV-2 (PCR) (Negative) Influenza Type A (PCR) (Negative) Influenza Type B (PCR) (Negative) RSV (PCR) (Negative) ABO/Rh Antibody Screen Quality:SDOH Health Related Social Needs: Health related social needs lonely/isolated Health related social needs details Pt not requesting help at this time. Critical Care Time Critical Care Time Critical Care Time: Yes Total Critical Care Time: 30 Attestation: Upon my evaluation, this patient had a high probability of imminent or life-threatening deterioration due to hypotension, acute renal failure in the setting of chronic COPD, hypoxia to 89%, and CHF history, which required my direct attention, intervention, and personal management. I have personally provided 30 minutes of critical care time exclusive of time spent on separately billable procedures. Time includes review of laboratory data, radiology results, discussion with consultants, and monitoring for potential decompensation. Interventions were performed as documented above, including monitoring of critical vital signs, ordering critical medications from bedside, and re-assessing effectiveness, repeating critical exam findings, and reviewing patients' chart. PFSH All Active Problems (Updated 02/14/25 @ 00:02 by HUMBERTO FUENTES) CHF (congestive heart failure) (Chronic) Anticoagulated (Acute) Umbilical hernia without obstruction and without gangrene (Acute) BPH (benign prostatic hyperplasia) (Chronic) Altered mental status (Acute) Elevated troponin (Acute) Acute respiratory failure with hypoxia and hypercarbia (Acute) Restless leg syndrome (Acute) Presence of cardiac defibrillator (Acute) Overweight (Acute) NSTEMI (non-ST elevated myocardial infarction) (Acute) Insomnia (Acute) Hypertensive disorder (Chronic) COPD with chronic bronchitis (Acute) Bilateral cataracts (Acute) Atrial flutter (Acute) Atherosclerotic coronary vascular disease (Acute) Acid reflux (Chronic) Hyperlipidemia (Acute) Diabetes mellitus (Chronic) Medical History (Updated 02/14/25 @ 00:02 by HUMBERTO FUENTES) HTN (hypertension) with goal to be determined Paroxysmal A-fib COPD (chronic obstructive pulmonary disease) DM type 2 (diabetes mellitus, type 2) ASCVD (arteriosclerotic cardiovascular disease) Known LAD stenosis s/p PCIx2 to [employer] RCA per [facility] [place], PCI to LAD RH ICD (implantable cardioverter-defibrillator) in place Medtronic cobalt placed at [facility] [place] 04/15/23 CHF with cardiomyopathy (HFpEF) heart failure with preserved ejection fraction 04/15 EF 17% per [facility] [place] [facility] RH Chronic GERD Elevated troponin Acute exacerbation of chronic obstructive pulmonary disease (COPD) Acute respiratory failure with hypoxia and hypercapnia Surgical History (Updated 02/11/25 @ 15:04 by Ondina Tyson) Hx of colonoscopy with polypectomy (~02/11/25) Social History Smoking/Tobacco Use Status: Former Tobacco Use Smoking risk assessment performed?: Yes Alcohol Intake: current Alcohol Intake frequency: 3 or more drinks per day Substance use type: does not use Housing: house [employer] Have you Been Recently Intoxicated or Drunk Within the Last 30 days?: No Have you Ever Experienced Previous Episodes of Alcohol Withdrawal?: No Have you ever Experienced Withdrawal Seizures?: No Have you ever Experienced Delirium Tremens(DT)s?: No Have you ever undergone Alcohol Rehabilitation Treatment (i.e, inpt ot outpatient treatment programs)?: No Have you ever Experienced Blackouts?: No Have you ever Combined Alcohol with other Downers within the last 90 days?: No Have you ever Combined Alcohol with any other Substance of Abuse during the last 90 days?: No Positive Blood Alcohol level on Presentation? [PCS.BAL]: No Evidence of Increased Autonomic Activity (i.e. HR>120, tremor, sweating, agitation, nausea)?: No Result: 0
[2025-06-15 12:43] LABS: BE (Venous) -4 mmol/L (-2-3); HCO3 (Venous) 23 mmol/L (23-28); O2 Sat (Venous) 53 %; TCO2 (Venous) 22 mmol/L (24-29); pCO2 (Venous) 52 mmHg (41-51); pO2 (Venous) 31 mmHg
[2025-06-15 12:44] LABS: HCT 37.5 % (40.0-50.0); HGB 11.9 g/dL (13.5-17.5); MCH 28.3 pg (27.0-33.0); MCHC 31.7 % (32.0-36.0); MCV 89 fL (80-95); MPV 9.0 fL (8.0-11.0); Platelet Count 238 10^3/uL (130-400); RBC 4.20 10^6/uL (4.36-5.78); RDW 14.5 % (11.8-14.1); RDW-SD 47.1 fL; WBC 6.83 10^3/uL (4.4-10.8)
[2025-06-15] MEDS: Normal Saline 1,000 ML 150 ML IV (12:48)
[2025-06-15 13:05] LABS: Lipase 16 U/L (<53)
[2025-06-15 13:06] LABS: Magnesium 2.0 mg/dL (1.6-2.6)
[2025-06-15 13:12] LABS: Abs Immature Grans 0.00 10^3/uL (0.0-0.06); Immature Grans % 0.0 %; RBC Morphology Normal
[2025-06-15 13:14] LABS: D-Dimer 988 ng/mlFEU (<500)
[2025-06-15 13:15] LABS: COVID-19 PCR Negative (Negative); RSV PCR Negative (Negative)
[2025-06-15 13:32] LABS: ALT 13 U/L (10-49); AST 12 U/L (<34); Albumin 3.7 g/dL (3.2-5.0); Alkaline Phosphatase 84 U/L (46-116); Anion Gap 12.6 mmol/L (3-11); BUN 79 mg/dL (9-23); Bilirubin, Total 0.3 mg/dL (0.2-1.2); CO2 24.0 mmol/L (20.0-31.0); Calcium 8.4 mg/dL (8.3-10.6); Chloride 93 mmol/L (98-107); Glucose 170 mg/dL (74-106); Potassium 4.8 mmol/L (3.5-5.1); Sodium 130 mmol/L (136-145); Total Protein 6.5 g/dL (5.7-8.2)
--- NOTE | 2025-06-15 13:45 | ED.PROG_ITS ---
Date of service: 06/15/25 Time of Service: 13:46 Medical Decision Making This is a 70-year-old male with history of heart failure with reduced ejection fraction in the emergency department setting of dizziness weakness nausea and vomiting found to have significant acute kidney injury. Patient is making urine. He is not volume overloaded. He is receiving 500 cc fluid bolus. He is making scant amount of urine at this point in time. Given his anticipated clinical course and difficulty with the fluid balance he will likely benefit from tertiary care transfer. He has been seen at [facility] in the past. He is not currently short of breath. Will repeat a venous blood gas and a basic metabolic panel following fluids. His troponin was positive with a delta of 11 ng/L. He is not having chest pain to suggest ACS. His acidemia is concerning for dialysis need. Will obtain a 3-hour troponin. 3:45 PM Patient's third troponin was reassuring against acute injury pattern. He swab negative for COVID flu influenza. Nephrology at [facility] was engaged in the setting of his hypotension recent diarrhea and significant DARRIN with scant urine production despite 1 L of IV fluids. Nephrology requested albumin repeat basic metabolic panel following 2 L IV fluids. CK was reassuring against rhabdomyolysis. Patient had no lactic acidosis. Nitrite negative urinalysis. His repeat basic metabolic panel showed slightly worsened DARRNI with a creatinine of 7.06 from 7.03. His BUN is elevated at 80 worse compared to prior. He has normal potassium. His repeat venous blood gas showed worsened acidemia. His most recent blood pressures 71/43. 4:17 PM Please see updated notes from Socorro Beltran who is taking care of the patient. He will likely require tertiary care transfer. He is now on norepinephrine drip. I updated patient and family at bedside. Quality:SDOH Health Related Social Needs: Health related social needs lonely/isolated Health related social needs details Pt not requesting help at this time. Discharge Plan Discharge Details Chief Complaint: [facility] Primary Care Provider: Jc Morales ED Provider: Socorro Martinez Home Meds and New Rx's Prescriptions: No Action meloxicam 15 mg tablet 30 mg PO QHS Patient Comments: 01/06/25 per pt med list RH fluticasone propion-salmeterol 500-50 mcg/dose blister with device 1 inh inhalation DAILY fluticasone propion-salmeterol [Advair Diskus] 100-50 mcg/dose blister with device 2 inh inhalation BID Patient Comments: 01/06/25 per pt med list. RH Entresto 49-51 mg tablet 1 tab PO BID [id number]-[id number]-C-[id number]-bosw 500-416.6-20 mg tablet 1 tab PO DAILY Patient Comments: 04/16/23 per pcp take 2 daily RH sildenafil 100 mg tablet 100 mg PO DAILY PRN Rx Instructions: administer 30 minutes to 4 hours before activity metformin 500 mg tablet 500 mg PO BID tamsulosin 0.4 mg capsule 0.8 mg PO QHS Ozempic 2 mg/dose (8 mg/3 mL) pen injector 2 mg subcut QWEEK amiodarone 200 mg tablet 200 mg PO DAILY apixaban 5 mg tablet 5 mg PO BID clopidogrel 75 mg tablet 75 mg PO DAILY empagliflozin 10 mg tablet 10 mg PO DAILY furosemide 40 mg tablet 40 mg PO DAILY pantoprazole 40 mg tablet,delayed release (DR/EC) 40 mg PO DAILY rosuvastatin 40 mg tablet 40 mg PO DAILY spironolactone 25 mg tablet 25 mg PO DAILY albuterol sulfate 90 mcg/actuation aerosol powdr breath activated 2 inh inhalation Q6H PRN gabapentin 100 mg capsule 100 mg PO DAILY magnesium chloride 64 mg tablet extended release 64 mg PO DAILY nitroglycerin 0.4 mg tablet, sublingual 0.4 mg sublingual Q5M PRN Rx Instructions: do not exceed 3 doses per episode omeprazole 20 mg capsule,delayed release(DR/EC) 20 mg PO DAILY Stiolto Respimat 2.5-2.5 mcg/actuation mist 2 puff inhalation DAILY metoprolol succinate [Toprol XL] 100 mg tablet extended release 24 hr 200 mg PO DAILY melatonin 3 mg capsule 3 mg PO HS PRNQty: 30 0RF albuterol sulfate 90 mcg/actuation HFA aerosol inhaler 2 inh INHALATION Q6H PRN Patient Comments: INHALE TWO PUFFS BY MOUTH EVERY 6 HOURS trazodone 50 mg tablet 25 mg PO DAILY fluticasone propion-salmeterol [Advair HFA] 230-21 mcg/actuation HFA aerosol inhaler 2 puff INHALATION BID Patient Comments: INHALE TWO PUFFS BY MOUTH TWICE A DAY RINSE THROAT AND MOUTH AFTER USE metformin 500 mg tablet extended release 24 hr 1,500 mg PO DAILY Patient Comments: TAKE THREE TABLETS BY MOUTH EVERY DAY ciprofloxacin HCl 500 mg tablet 500 mg PO BID Qty: 10 0RF metronidazole 500 mg tablet 500 mg PO TID Qty: 15 0RF POCUS Exam (ED) Limited Cardiac Exam DATE OF EXAM: 06/15/25 TIME OF EXAM: 14:17 PROVIDER THAT PERFORMED THE STUDY: Tom Faith IS THIS A REPEAT EXAM DURING THIS ENCOUNTER: no REASON FOR EXAM: Hypovolemic shock VISUALIZED STRUCTURES: Four Chambers, Left ventricle and LVOT VIEW OBTAINED: Apical 4-Chamber, Parasternal long-axis and Subxiphoid PERTINENT FINDINGS/IMPRESSION: No pericardial effusion and No RV dilation DIFFERENTIAL DIAGNOSES: Aortic outflow track less than 4 cm, moderate squeeze, RV less than LV, no significant pericardial effusion. No B-lines bilaterally. Exam complete
--- NOTE | 2025-06-15 14:00 | DI.RAD_ITS ---
Exam(s) XR CHEST 2V PA LATERAL EXAM: XR CHEST 2V PA LATERAL CLINICAL HISTORY: SOB TECHNIQUE: 2D digital imaging was performed of the chest. Two images were obtained. AP and lateral views were obtained. COMPARISON: CR XR PORTABLE CHEST AP from 12/04/2024 FINDINGS: There are low lung volumes with crowding of the pulmonary vasculature. MEDIASTINUM: Normal. HEART: Normal. There is a cardiac monitoring device in stable position. PULMONARY VASCULATURE: Normal. LUNGS: Clear. PLEURAL SPACE: No pleural effusion or pneumothorax. BONE:Within normal limits for the patient's age. OTHER FINDINGS:Normal. IMPRESSION: No acute pulmonary findings. DATA REPOSITORY: RADIATION DOSE DELIVERED:
[2025-06-15] MEDS: Lidocaine 2% Jelly 6 ML SYR (14:06)
[2025-06-15 14:12] LABS: Troponin I 186 ng/L (<54)
[2025-06-15 14:14] LABS: Troponin I 175 ng/L (<54)
[2025-06-15 14:16] LABS: Glucose 250 mg/dL (Negative)
[2025-06-15 14:23] LABS: C & S Indicated? No; WBC 0-2 HPF (0-5)
[2025-06-15 14:30] LABS: BE (Venous) -3 mmol/L (-2-3); HCO3 (Venous) 24 mmol/L (23-28); O2 Sat (Venous) 49 %; TCO2 (Venous) 23 mmol/L (24-29); pCO2 (Venous) 55 mmHg (41-51); pO2 (Venous) 30 mmHg
[2025-06-15 14:37] LABS: Creatine Kinase 54 U/L (46-171)
--- NOTE | 2025-06-15 15:00 | DI.CT_ITS ---
Exam(s) CT ABDOMEN PELVIS WO EXAM: CT ABDOMEN PELVIS WO CLINICAL HISTORY: umbilical tenderness. TECHNIQUE: Imaging Protocol: Axial computed tomography images with coronal and sagittal reformatted images were created and reviewed. COMPARISON: CT CT CTA ABD/PELV W/AND/OR WO CON from 12/02/[address] ABDOMEN PELVIS CTA from 02/09/2025 FINDINGS: ABDOMEN: Lung Bases: Coronary artery calcifications are present. Distal cardiac leads are seen in the right atrium and right ventricle. There is scarring and/or atelectasis in the lung bases. Mild bronchiectasis is seen in the lingula. Liver: Normal density. No measurable mass. Gallbladder and biliary tract: No radiodense calculus or biliary ductal dilation. Pancreas: Normal density, no abnormal calcifications or inflammatory process. Spleen: Normal. Kidneys: Normal size, contour and axis.No radiodense stones or obstructive uropathy. No masses seen. Adrenal glands: No mass is seen. Lymph nodes: Within normal limits. Abdominal Aorta: Abdominal portion non-dilated. Atherosclerotic calcification is present. PELVIS: Bladder:The urinary bladder is nondistended. There is a Craig catheter in place. Bowel: There is diverticulosis of the colon but no evidence of acute diverticulitis. There is no evidence of bowel obstruction or bowel wall thickening. Note is made of a diverticulum associated with the duodenum and adjacent to the head of the pancreas. Appendix is unremarkable. Peritoneal cavity: No ascites, collection or mesenteric inflammatory response. No free air. Reproductive organs: Prostate gland is enlarged. Bones: Within normal limits. Soft Tissues: There is a small fat containing umbilical hernia. No findings to suggest incarceration or seen at this time. There are small fat containing inguinal hernias. IMPRESSION: 1. There is a small fat containing umbilical hernia. No evidence of incarceration is seen at this time. 2. Small fat containing bilateral inguinal hernias. 3. No acute abdominal or pelvic process. RADIATION DOSE DELIVERED: 860.36mGy.cm Total DLP DATA REPOSITORY: All CT scans at this facility are submitted to the National Radiology Data Registry (NRDR) Dose Index Registry (DIR) with the [employer] (A[employer]). RADIATION OPTIMIZATION: All CT scans at this facility use at least one of these dose optimization techniques: automated exposure control; mA and/or kV adjustment per patient size (includes targeted exams where dose is matched to clinical indication); or iterative reconstruction.
[2025-06-15 15:03] LABS: Troponin I 180 ng/L (<54)
[2025-06-15 15:05] LABS: Anion Gap 10 mmol/L (3-11); BUN 80 mg/dL (9-23); CO2 25.8 mmol/L (20.0-31.0); Calcium 7.9 mg/dL (8.3-10.6); Chloride 95 mmol/L (98-107); Glucose 138 mg/dL (74-106); Potassium 4.6 mmol/L (3.5-5.1); Sodium 131 mmol/L (136-145)
[2025-06-15] MEDS: ALBUMIN HUMAN 25 GM/100 ML BTL IVPB (15:20)
[2025-06-15] MEDS: Normal Saline 1,000 ML 1000 ML IV ×2 (15:24→17:42)
--- NOTE | 2025-06-15 15:42 | W.EDPROG ---
Date of service: 06/15/25 Time of Service: 15:43 Medical Decision Making Care assumed from provider (BERTA Hilario) Please see their initial HPI, PE, and documentation. Discussed patient details and case and pending workup and disposition. Patient is alert and oriented. Currently on signout his blood pressure is 80/37 and he is currently getting a second liter of normal saline bolus and a gram of albumin. Patient reports that he has had diarrhea over the last 3 to 4 days and when episode of emesis. Presented today feeling dizzy weak and nauseated. He had decreased urinary output over the last few days. On signout he is in acute renal failure with a soft blood pressure, is also acidotic, sodium 131 BUN 80 creatinine 7.06 chloride 95 glucose 138 with a proBNP of 13,220 he is making very small amounts of urine. He does have a Craig in place. He is complaining of some back pain which he reports is chronic for him. According to my colleague he has spoken with cement mason helper Dr. Oneill at [facility] who states that if blood pressure does not improve starting norepinephrine would be okay. At this time he is pending reevaluation BMP and VBG after 2nd liter and albumin and disposition. 1551: Pressure is currently 71/43 with a MAP of 52, heart rate 101, will order a norepinephrine drip titrate to MAP of 65. Will start at 5 mcg/min. Will plan on repeating BMP and VBG after the second liter is infused. 1614: [facility] transfer center called, for transfer request, will call me back. Pt c/o back pain, 1 gm IV Acetaminophen ordered. Patient is on 2 L nasal cannula, O2 sat is 93% patient takes recent blood pressure is 95/29 with a MAP of 52 ED staff to titrate the Nor epi drip up to 20 mics per minute. Awaiting callback from [facility]. Repeat VBG is deep climbing, pH is 7.21, pCO2 is 54 pO2 37 bicarb 21 total CO2 21 with a base excess of -7, sodium is 132 BUN is 78 creatinine 6.80 which is an improvement with a GFR of 8, glucose 129 calcium 7.9. 1727: [facility] Critical care fellow , discussed patient case in details with her, she recommends an additional third liter of normal saline which was ordered, they agreed to accept patient for transfer accepting physician will be Dr. Parminder Manuel to the MICU awaiting bed assignment. Discussed plan of care with patient and family who verbalized understanding. EMS ETA 30 min. BP 92/37 MAP of 57 HR 102, Nor epi at 25mcg/min. EMS here for patient transport, patient is still awake and responsive, reports Back pain is gone, Nor-epi at 30mcg/min last BP 98/22. This text was generated using [employer] dictation system, please disregard any oddities of phrase or misspellings. Medical Records Medical records reviewed: Yes I reviewed the patient's medical records. Imaging Data Radiologic Study: Imaging: CT Scan Radiologist's impression: ABDOMEN: Lung Bases: Coronary artery calcifications are present. Distal cardiac leads are seen in the right atrium and right ventricle. There is scarring and/or atelectasis in the lung bases. Mild bronchiectasis is seen in the lingula. Liver: Normal density. No measurable mass. Gallbladder and biliary tract: No radiodense calculus or biliary ductal dilation. Pancreas: Normal density, no abnormal calcifications or inflammatory process. Spleen: Normal. Kidneys: Normal size, contour and axis.No radiodense stones or obstructive uropathy. No masses seen. Adrenal glands: No mass is seen. Lymph nodes: Within normal limits. Abdominal Aorta: Abdominal portion non-dilated. Atherosclerotic calcification is present. PELVIS: Bladder:The urinary bladder is nondistended. There is a Craig catheter in place. Bowel: There is diverticulosis of the colon but no evidence of acute diverticulitis. There is no evidence of bowel obstruction or bowel wall thickening. Note is made of a diverticulum associated with the duodenum and adjacent to the head of the pancreas. Appendix is unremarkable. Peritoneal cavity: No ascites, collection or mesenteric inflammatory response. No free air. Reproductive organs: Prostate gland is enlarged. Bones: Within normal limits. Soft Tissues: There is a small fat containing umbilical hernia. No findings to suggest incarceration or seen at this time. There are small fat containing inguinal hernias. IMPRESSION: 1. There is a small fat containing umbilical hernia. No evidence of incarceration is seen at this time. 2. Small fat containing bilateral inguinal hernias. 3. No acute abdominal or pelvic process. Radiologic Study #2: Imaging: X-Ray Radiologist's impression: EXAM: XR CHEST 2V PA LATERAL CLINICAL HISTORY: SOB TECHNIQUE: 2D digital imaging was performed of the chest. Two images were obtained. AP and lateral views were obtained. COMPARISON: CR XR PORTABLE CHEST AP from 12/04/2024 FINDINGS: There are low lung volumes with crowding of the pulmonary vasculature. MEDIASTINUM: Normal. HEART: Normal. There is a cardiac monitoring device in stable position. PULMONARY VASCULATURE: Normal. LUNGS: Clear. PLEURAL SPACE: No pleural effusion or pneumothorax. BONE:Within normal limits for the patient's age. OTHER FINDINGS:Normal. IMPRESSION: No acute pulmonary findings. Lab Data Lab results reviewed: Yes I reviewed the patient's lab results. Labs: 06/15/25 15:30 Blood Blood Culture - Pending 06/15/25 13:23 Blood Blood Culture - Pending Laboratory Tests Range/Units 06/15/25 06/15/25 06/15/25 12:30 12:33 13:29 WBC (4.4-10.8) 10^3/uL 6.83 RBC (4.36-5.78) 10^6/uL 4.20 L Hgb (13.5-17.5) g/dL 11.9 L Hct (40.0-50.0) % 37.5 L MCV (80-95) fL 89 MCH (27.0-33.0) pg 28.3 MCHC (32.0-36.0) % 31.7 L RDW (11.8-14.1) % 14.5 H Plt Count (130-400) 10^3/uL 238 MPV (8.0-11.0) fL 9.0 Immature Gran % % 0.0 Neutrophils % % 72.0 Band Neutrophils % % 6 Lymphocytes % % 10.0 Atypical Lymphs % % 2 Monocytes % % 7.0 Eosinophils % % 1.0 Basophils % % 1.0 Metamyelocytes % 1 Nucleated RBC % (0.0-0.3) % 0.0 Absolute Neutrophils (1.2-6.7) 10^3/uL 5.33 Absolute Lymphocytes (1.2-3.4) 10^3/uL 0.82 L Absolute Monocytes (0.1-0.8) 10^3/uL 0.48 Absolute Eosinophils (0.0-0.7) 10^3/uL 0.07 Absolute Basophils (0.0-0.2) 10^3/uL 0.07 RBC Morphology Normal D-Dimer (<500) ng/mlFEU 988 H VBG pH (7.31-7.41) 7.26 L VBG pCO2 (41-51) mmHg 52 H VBG pO2 mmHg 31 VBG HCO3 (23-28) mmol/L 23 VBG Total CO2 (24-29) mmol/L 22 L VBG O2 Saturation % 53 VBG Base Excess (-2-3) mmol/L -4 L VBG Lactate (<or=2.0) mmol/L 1.5 Sodium (136-145) mmol/L 130 L Potassium (3.5-5.1) mmol/L 4.8 Chloride (98-107) mmol/L 93 L Carbon Dioxide (20.0-31.0) mmol/L 24.0 Anion Gap (3-11) mmol/L 12.6 H BUN (9-23) mg/dL 79 H Creatinine (0.73-1.18) mg/dL 7.03 H* Est GFR (CKD-EPI 2020) (mL/min/1.73m2) 7.75 Glucose (74-106) mg/dL 170 H Calcium (8.3-10.6) mg/dL 8.4 Magnesium (1.6-2.6) mg/dL 2.0 Total Bilirubin (0.2-1.2) mg/dL 0.3 AST (<34) U/L 12 ALT (10-49) U/L 13 Alkaline Phosphatase (46-116) U/L 84 Creatine Kinase (46-171) U/L Troponin I (<54) ng/L 186 H* 175 H* NT-Pro-B Natriuret Pep (<300) pg/mL 69650 H Total Protein (5.7-8.2) g/dL 6.5 Albumin (3.2-5.0) g/dL 3.7 Lipase (<53) U/L 16 Urine Color (Yellow) Urine Clarity (Clear) Urine pH (5-8) Ur Specific [place] (1.005-1.025) Urine Protein (Neg-Trace) mg/dL Urine Ketones (Negative) mg/dL Urine Blood (Negative) Urine Nitrite (Negative) Urine Bilirubin (Negative) Urine Urobilinogen (Up to 0.2) mg/dL Ur Leukocyte Esterase (Negative) Urine RBC (0-2) HPF Urine WBC (0-5) HPF Ur Epithelial Cells (Negative) HPF Urine Crystals (Negative) HPF Urine Bacteria (Negative) HPF Urine Casts (Negative) LPF Urine Mucus (Negative) Urine Other (Negative) Ur Culture Indicated? Urine Glucose (Negative) mg/dL COVID-19 Source Nasopharynx SARS-CoV-2 (PCR) (Negative) Negative Influenza Type A (PCR) (Negative) Negative Influenza Type B (PCR) (Negative) Negative RSV (PCR) (Negative) Negative ABO/Rh O Negative Antibody Screen NEGATIVE Range/Units 06/15/25 06/15/25 06/15/25 13:33 14:06 14:24 WBC (4.4-10.8) 10^3/uL RBC (4.36-5.78) 10^6/uL Hgb (13.5-17.5) g/dL Hct (40.0-50.0) % MCV (80-95) fL MCH (27.0-33.0) pg MCHC (32.0-36.0) % RDW (11.8-14.1) % Plt Count (130-400) 10^3/uL MPV (8.0-11.0) fL Immature Gran % % Neutrophils % % Band Neutrophils % % Lymphocytes % % Atypical Lymphs % % Monocytes % % Eosinophils % % Basophils % % Metamyelocytes % Nucleated RBC % (0.0-0.3) % Absolute Neutrophils (1.2-6.7) 10^3/uL Absolute Lymphocytes (1.2-3.4) 10^3/uL Absolute Monocytes (0.1-0.8) 10^3/uL Absolute Eosinophils (0.0-0.7) 10^3/uL Absolute Basophils (0.0-0.2) 10^3/uL RBC Morphology D-Dimer (<500) ng/mlFEU VBG pH (7.31-7.41) 7.25 L VBG pCO2 (41-51) mmHg 55 H VBG pO2 mmHg 30 VBG HCO3 (23-28) mmol/L 24 VBG Total CO2 (24-29) mmol/L 23 L VBG O2 Saturation % 49 VBG Base Excess (-2-3) mmol/L -3 L VBG Lactate (<or=2.0) mmol/L Sodium (136-145) mmol/L 131 L Potassium (3.5-5.1) mmol/L 4.6 Chloride (98-107) mmol/L 95 L Carbon Dioxide (20.0-31.0) mmol/L 25.8 Anion Gap (3-11) mmol/L 10 BUN (9-23) mg/dL 80 H Creatinine (0.73-1.18) mg/dL 7.06 H* Est GFR (CKD-EPI 2020) (mL/min/1.73m2) 7.71 Glucose (74-106) mg/dL 138 H Calcium (8.3-10.6) mg/dL 7.9 L Magnesium (1.6-2.6) mg/dL Total Bilirubin (0.2-1.2) mg/dL AST (<34) U/L ALT (10-49) U/L Alkaline Phosphatase (46-116) U/L Creatine Kinase (46-171) U/L 54 Troponin I (<54) ng/L 180 H* NT-Pro-B Natriuret Pep (<300) pg/mL Total Protein (5.7-8.2) g/dL Albumin (3.2-5.0) g/dL Lipase (<53) U/L Urine Color (Yellow) Dark Yellow Urine Clarity (Clear) Sl Cloudy Urine pH (5-8) 5.0 Ur Specific [place] (1.005-1.025) 1.025 Urine Protein (Neg-Trace) mg/dL 100 H Urine Ketones (Negative) mg/dL Trace H Urine Blood (Negative) Small H Urine Nitrite (Negative) Negative Urine Bilirubin (Negative) Small H Urine Urobilinogen (Up to 0.2) mg/dL 0.2 Ur Leukocyte Esterase (Negative) Negative Urine RBC (0-2) HPF 5-10 H Urine WBC (0-5) HPF 0-2 Ur Epithelial Cells (Negative) HPF Few Urine Crystals (Negative) HPF Moderate Amorphous Urine Bacteria (Negative) HPF Rare Urine Casts (Negative) LPF 3-5 Fine Granular Urine Mucus (Negative) Trace Urine Other (Negative) Few Renal Ur Culture Indicated? No Urine Glucose (Negative) mg/dL 250 H COVID-19 Source SARS-CoV-2 (PCR) (Negative) Influenza Type A (PCR) (Negative) Influenza Type B (PCR) (Negative) RSV (PCR) (Negative) ABO/Rh Antibody Screen Quality:SDOH Health Related Social Needs: Health related social needs lonely/isolated Health related social needs details Pt not requesting help at this time. Critical Care Time Critical Care Time Critical Care Time: Yes Total Critical Care Time: 120 Attestation: I spent greater than 35 minutes addressing this patient's acute life threatening illness. This time was spent engaged in actions directly related to the patient's care. Failure to initiate these interventions would have likely resulted in clinically significant or life threatening deterioration in the patients condition. Discharge Plan Disposition Patient Disposition: Transfer-Acute Inpatient Care Specific Acute Inpt Facility: [facility] Condition: Serious Discharge Details Clinical Impression: Acute renal failure Primary Care Provider: Jc Morales ED Provider: Socorro Martinez Home Meds and New Rx's Prescriptions: No Action meloxicam 15 mg tablet 30 mg PO QHS Patient Comments: 01/06/25 per pt med list RH fluticasone propion-salmeterol 500-50 mcg/dose blister with device 1 inh inhalation DAILY fluticasone propion-salmeterol [Advair Diskus] 100-50 mcg/dose blister with device 2 inh inhalation BID Patient Comments: 01/06/25 per pt med list. RH Entresto 49-51 mg tablet 1 tab PO BID nsobiqpd-bvgq-[id number]-C-alfred-bosw 500-416.6-20 mg tablet 1 tab PO DAILY Patient Comments: 04/16/23 per pcp take 2 daily RH sildenafil 100 mg tablet 100 mg PO DAILY PRN Rx Instructions: administer 30 minutes to 4 hours before activity metformin 500 mg tablet 500 mg PO BID tamsulosin 0.4 mg capsule 0.8 mg PO QHS Ozempic 2 mg/dose (8 mg/3 mL) pen injector 2 mg subcut QWEEK amiodarone 200 mg tablet 200 mg PO DAILY apixaban 5 mg tablet 5 mg PO BID clopidogrel 75 mg tablet 75 mg PO DAILY empagliflozin 10 mg tablet 10 mg PO DAILY furosemide 40 mg tablet 40 mg PO DAILY pantoprazole 40 mg tablet,delayed release (DR/EC) 40 mg PO DAILY rosuvastatin 40 mg tablet 40 mg PO DAILY spironolactone 25 mg tablet 25 mg PO DAILY albuterol sulfate 90 mcg/actuation aerosol powdr breath activated 2 inh inhalation Q6H PRN gabapentin 100 mg capsule 100 mg PO DAILY magnesium chloride 64 mg tablet extended release 64 mg PO DAILY nitroglycerin 0.4 mg tablet, sublingual 0.4 mg sublingual Q5M PRN Rx Instructions: do not exceed 3 doses per episode omeprazole 20 mg capsule,delayed release(DR/EC) 20 mg PO DAILY Stiolto Respimat 2.5-2.5 mcg/actuation mist 2 puff inhalation DAILY metoprolol succinate [Toprol XL] 100 mg tablet extended release 24 hr 200 mg PO DAILY melatonin 3 mg capsule 3 mg PO HS PRNQty: 30 0RF albuterol sulfate 90 mcg/actuation HFA aerosol inhaler 2 inh INHALATION Q6H PRN Patient Comments: INHALE TWO PUFFS BY MOUTH EVERY 6 HOURS trazodone 50 mg tablet 25 mg PO DAILY fluticasone propion-salmeterol [Advair HFA] 230-21 mcg/actuation HFA aerosol inhaler 2 puff INHALATION BID Patient Comments: INHALE TWO PUFFS BY MOUTH TWICE A DAY RINSE THROAT AND MOUTH AFTER USE metformin 500 mg tablet extended release 24 hr 1,500 mg PO DAILY Patient Comments: TAKE THREE TABLETS BY MOUTH EVERY DAY ciprofloxacin HCl 500 mg tablet 500 mg PO BID Qty: 10 0RF metronidazole 500 mg tablet 500 mg PO TID Qty: 15 0RF
[2025-06-15] MEDS: Norepinephrine in D5W 8 MG/250 ML BAG 9.375 MG IV (15:56)
[2025-06-15] MEDS: ACETAMINOPHEN 1,000 MG/100 ML BAG 400 MG IVPB (16:32)
[2025-06-15 16:50] LABS: BE (Venous) -7 mmol/L (-2-3); HCO3 (Venous) 21 mmol/L (23-28); O2 Sat (Venous) 62 %; TCO2 (Venous) 21 mmol/L (24-29); pCO2 (Venous) 54 mmHg (41-51); pO2 (Venous) 37 mmHg
[2025-06-15 17:24] LABS: Anion Gap 11.6 mmol/L (3-11); BUN 78 mg/dL (9-23); CO2 22.9 mmol/L (20.0-31.0); Calcium 7.9 mg/dL (8.3-10.6); Chloride 98 mmol/L (98-107); Glucose 129 mg/dL (74-106); Potassium 4.5 mmol/L (3.5-5.1); Sodium 132 mmol/L (136-145)
== END 2025-06-15 18:59 | disposition short-term general hospital (02) ==
PROVIDERS: Physician Assistant; Emergency Provider Registered Nurse Emergency; PCP Specialist/Technologist Athletic Trainer
DX: N17.9 Acute kidney failure, unspecified (principal); M54.9 Dorsalgia, unspecified; E87.20 Acidosis, unspecified; R53.1 Weakness; R53.83 Other fatigue; R11.2 Nausea with vomiting, unspecified; R19.7 Diarrhea, unspecified; J44.9 Chronic obstructive pulmonary disease, unspecified; I50.9 Heart failure, unspecified; E11.9 Type 2 diabetes mellitus without complications; I48.91 Unspecified atrial fibrillation
CPT/HCPCS: 00123; 36415; 80048; 80053; 82550; 82805; 83690; 86850; 86900; 86901; 87040; 87637; 93005; 93308; 96365; 96367; 96368; 99291; 99292; 71046; 74176; 81003; 81015; 83605; 83735; 83880; 84484; 85025; 85379; 93010; J0131; P9047